=== PATIENT | male | born 1940 | race Caucasian/White ===

== ENCOUNTER 2018-12-13 14:33 | Inpatient (IN) ==
[2018-12-13] MEDS ORDERED: Naloxone 0.4 MG/ML INJ IVP PRN (16:09)
[2018-12-13] MEDS ORDERED: Albuterol 2.5 MG/3 ML NEBULIZER IH PRN (16:14)
[2018-12-13] MEDS ORDERED: Artificial Tears SOLN 15 ML BOTTLE BOTH EYES PRN (16:24)
[2018-12-13 17:05] LABS: ABG Base Excess -7 mEq/L (-2 to 3); ABG HCO3 18 mEq/L (21-27); ABG Oxygen Saturation 99 % (95-98); ABG PCO2 35 mmHg (35-45); ABG PH 7.33 pH Units (7.32-7.45); ABG PO2 151 mmHg (85-104); ABG TCO2 19 mEq/L (20-26); Blood Gas Modality VC; Blood Gas PEEP 5 cm H2O; Blood Gas Respiration Rate 12; Blood Gas VT 500 cc
--- NOTE | 2018-12-13 17:12 | Internal Med History&Physical ---
Date of Encounter: 12/13/18 Time of Encounter: 16:43 Internal Medicine - H&P: HPI Chief complaint: Respiratory arrest Admitted From: Intrahospital Transfer History of present illness: Oleg Schmidt is a 78 M w hx A-Fib on AC, HFrEF 40%, CAD, DM2, HTN, TIA, recent admission for hypoxic respiratory arrest requiring intubation in ICU suspected from benzo overdose with eventual full recovery from which he was only discharged from hospital yesterday. Pt arrived at [place] [facility] flaccid and unresponsive with minimal respiratory effort. Given Narcan without effect. Did have absent reflexes except mild blink to corneal and did not require any sedation during intubation. ABG w pH 7.27, pCO2 42, pO2 114 indicating obtained after placing airway. Serum Cr 3.5. Utox with benzos. Previous hospital stay for similar presentation from 11/27-12/12, complicated by dysphagia placed on thickened diet, RLL PNA placed on augmentin, C diff diarrhea placed on oral vanc. Past medical, surgical, social, and family histories reviewed and updated as below. Past Med Surg Social Fam HX - Past Medical History Medical history: atrial fibrillation, CHF, coronary artery disease, diabetes, hypertension, TIA, other (MRSA, chronic back pain, abdominal aortic aneurysm) Additional medical history: MRSA, back pain, AAA Psychiatric history: anxiety - Past Surgical History Additional surgical history: unknown - Social History Smoking Status: Former smoker Smokeless Tobacco Status: No Alcohol use: none Drug use: none Internal Medicine - H&P: Meds Albuterol Neb [Proventil Neb] 2.5 mg IH Q6HR PRN 11/27/18 [History] Albuterol Sulfate [Proair Hfa] 2 puff IH Q6H PRN 11/27/18 [History] Atorvastatin Calcium [Lipitor] 40 mg PO HS 11/27/18 [History] BuPROPion XL (24 HR) [Wellbutrin Xl] 150 mg PO DAILY 11/27/18 [History] Carboxymethylcellulose Sodium [Refresh Liquigel] 1 applic BOTH EYES QID 11/27/18 [History] Cholecalciferol (D-3) [Vitamin D] 1,000 unit PO DAILY 11/27/18 [History] Clopidogrel [Plavix] 75 mg PO DAILY 11/27/18 [History] Ketotifen Fumarate [Zaditor] 1 drop BOTH EYES BID 11/27/18 [History] Metoprolol Succinate [Toprol Xl] 12.5 mg PO DAILY 11/27/18 [History] Tamsulosin [Flomax] 0.4 mg PO DAILY 11/27/18 [History] Tiotropium [Spiriva] 2 puff IH DAILY 11/27/18 [History] Venlafaxine XR (24 HR) [Effexor Xr] 300 mg PO DAILY 11/27/18 [History] Budesonide/Formoterol 160/4.5 [Symbicort 160/4.5] 2 puff IH BIDR #1 inh 12/10/18 [Rx] Pregabalin [Lyrica] 50 mg PO BID capsule 12/10/18 [Rx] Amoxicillin/Clavulanate [Augmentin] 875 mg PO BIDWM #11 tablet 12/12/18 [Rx] Vancomycin Oral Soln [Firvanq] 125 mg PO QID #33 udc 12/12/18 [Rx] Warfarin [Coumadin] 5 mg PO 1800 #30 tablet 12/12/18 [Rx] Allergy/AdvReac Type Severity Reaction Status Date / Time trazodone Allergy See Verified 12/31/17 13:52 Comments ROS unobtainable: due to endotracheal tube, due to mental status All Systems PM: A 10-system review of systems was performed and is negative for pertinent findings except as documented above in the HPI. - Constitutional Vitals: Resp BP Pulse Ox 18 148/71 100 12/13/18 16:20 12/13/18 16:20 12/13/18 16:20 Exam: General: NAD, intubated and unresponsive Head: Atraumatic, normocephalic. Face symmetric Eyes: sclerae anicteric ENT: Mucous membranes moist. Normal oral mucosa and dentition. Trachea midline. Thoracic: No visible chest wall deformities. Diminished breath sounds b/l, no wheezing or crackles Cardio: Normal S1 and S2, regular rate and rhythm, no JVD Abdomen: Soft, nondistended. Bowel sounds present. Extremities: Warm, well perfused. DP pulses 2+ b/l. No clubbing, cyanosis. No edema Skin: Intact. No rashes, bruises, or ulcers Neuro: Unresponsive, some nonspecific withdrawal to pain, absent dolls eye but does have weak gag and corneal, downgoing babinsky, extremities flaccid - Summary of Assessment and Plan Summary of Assessment and Plan: Oleg Schmidt is a 78 M w hx A-Fib on AC, HFrEF 40%, CAD, DM2, HTN, TIA, recent hypoxic respiratory arrest, who p/w unresponsive and minimal respiratory effort less than 24 hours after hospital discharge, w Utox positive for benzos, concerning for acute hypoxic respiratory arrest. Acute hypoxic respiratory failure: intubated without sedation w Utox +benzos, OARRS reviewed and no benzos, previous hospitalization w benzos on Utox which subsequently cleared on repeat, and now again has benzos. No benzos used for either intubation (etomidate only on first admission, nothing for this one). Strong suspicion for benzo misuse; question is where is pt obtaining them, and is it being given to him maliciously or is he accidentally or intentionally ingesting. Could also be something in the home like CO poisoning. Could have also aspirated given dysphagia and rec for thickened food at discharge. Current hospital presentation very similar to last one, will monitor pt condition and hope improves similarly. - low tidal volume vent management - no sedation - pulm consult for ICU management - consider neuro consult if status does not improve overnight - consider psych consult if pt mental status does improve to assess for suicidal intent - will need speech consult for swallow eval if mental status improves - carboxyhemoglobin level - CT chest - ABG, lactate - continue augmentin for recent PNA LEE: baseline ~1.1, was 4.5 on last admit and improved to 2.3 at discharge, is worse on admit today - Neph consult Recent pneumonia: O2 sats good here on vent, no fever or leukocytosis, no reason to think this is causative at this time. - continue previous augmentin course until 12/17 C diff colitis: formed stools prior to discharge - continue oral vanc until 1 week after augmentin course completed, last dose 12/24 A-Fib: home BB, warfarin DM2: SSI CAD/HLD/TIA: home statin, keep Mg >2 and K >4 HFrEF 40%: not volume overloaded, will monitor HTN: holding home meds given relative hypotension PPx: warfarin, SCDs, famotidine FEN: NPO and TF, no MIVF Lines: PIV Consults: Pulm, Neph, consider Neuro and Psych Code: Full Dispo: patient requires inpatient eval and management at this time. Anticipate 3-4 days. Unclear dispo at this time
[2018-12-13] MEDS: Famotidine 20 MG/2 ML VIAL IVP SCH (17:33)
[2018-12-13] MEDS: Vancomycin Oral Soln 125 MG/2.5 ML UDC PO SCH ×2 (17:33→20:58)
[2018-12-13] MEDS ORDERED: Warfarin perPT PO PRN (17:42)
[2018-12-13] MEDS ORDERED: *HR* Warfarin 7.5 MG TABLET PO ONE (18:00)
[2018-12-13] MEDS ORDERED: *HR* Warfarin 5 MG TABLET PO SCH (18:00)
[2018-12-13 18:10] LABS: Amphetamine Screen,Urine Negative ng/mL (Cutoff=1000); Barbiturate Screen,Urine Negative ng/mL (Cutoff=200); Benzodiazepines Screen,Urine Negative ng/mL (Cutoff=200); Cannabinoid Screen,Urine Negative ng/mL (Cutoff = 50); Cocaine Screen,Urine Negative ng/mL (Cutoff= 300); Opiate Screen,Urine Negative ng/mL (Cutoff=300); Phencyclidine Screen,Urine Negative ng/mL (Cutoff=25)
[2018-12-13 18:18] LABS: Basophils # 0.1 K/mcL (0.0-0.2); Basophils % 0.3 %; Eosinophils # 0.2 K/mcL (0.0-0.6); Eosinophils % 1.2 %; Hematocrit 40.3 % (37.5-50.1); Hemoglobin 12.6 g/dL (12.9-16.9); Immature Granulocytes % 1.4 % (0-4); Lymphocytes % 5.9 %; Mean Corpuscular HGB Conc 31.3 g/dL (31.6-35.5); Mean Corpuscular Hemoglobin 30.1 pg (28.0-33.3); Mean Corpuscular Volume 96.4 fL (83.0-100.0); Mean Platelet Volume 10.9 fL (9.4-12.4); Neutrophils # 14.2 K/mcL (1.6-8.9); Platelet Count 259 K/mcL (140-400); Red Blood Count 4.18 M/mcL (4.19-5.50); Red Cell Distribution Width 14.7 % (11.5-14.5); Segmented Neutrophils % 85.2 %
[2018-12-13 18:21] LABS: INR 1.4; Prothrombin Time 15.5 Seconds (9.4-12.1)
[2018-12-13 18:32] LABS: Acetaminophen < 10 mcg/mL (10-20); Ethanol < 10 mg/dL (Less than 10); Salicylate < 2.5 mg/dL (15.0-30.0)
[2018-12-13 18:35] LABS: Albumin 3.4 g/dL (3.5-5.7); Albumin/Globulin Ratio 1.5 (1.1-2.2); Bilirubin,Direct 0.1 mg/dL (0.0-0.2); Bilirubin,Indirect 0.3 mg/dL (0.0-1.2); Bilirubin,Total 0.4 mg/dL (0.3-1.0); Calcium 8.2 mg/dL (8.6-10.3); Globulin 2.3 g/dL (2.4-3.5); Magnesium 1.5 mg/dL (1.6-2.6); Phosphorous 6.1 mg/dL (2.7-4.5); Potassium 3.8 mEq/L (3.5-5.1); Total Protein 5.7 g/dL (6.4-8.9)
[2018-12-13 18:45] LABS: Troponin I 0.04 ng/mL (< 0.04)
[2018-12-13] MEDS: Artificial Tears SOLN 15 ML BOTTLE BOTH EYES SCH ×2 (20:00→20:49)
[2018-12-13] MEDS: Chlorhexidine Rinse 15 ML MOUTHWASH MM SCH (20:49)
[2018-12-13] MEDS: Budesonide/Formoterol 160/4.5 1 PUFF INH IH SCH (22:16)
[2018-12-14] MEDS: Artificial Tears SOLN 15 ML BOTTLE BOTH EYES SCH ×6 (03:55→19:37)
[2018-12-14 04:44] LABS: ABG Base Excess -6 mEq/L (-2 to 3); ABG HCO3 20 mEq/L (21-27); ABG Oxygen Saturation 97 % (95-98); ABG PCO2 42 mmHg (35-45); ABG PH 7.29 pH Units (7.32-7.45); ABG PO2 98 mmHg (85-104); ABG TCO2 21 mEq/L (20-26); Blood Gas Modality ASSIST CONTROL; Blood Gas PEEP 5 cm H2O; Blood Gas Respiration Rate 12; Blood Gas VT 500 cc
[2018-12-14] MEDS: Famotidine 20 MG/2 ML VIAL IVP SCH (05:35)
[2018-12-14] MEDS: Tiotropium 18 MCG inhalation IH SCH (07:33)
[2018-12-14] MEDS: Budesonide/Formoterol 160/4.5 1 PUFF INH IH SCH ×2 (07:34→21:38)
[2018-12-14] MEDS: Chlorhexidine Rinse 15 ML MOUTHWASH MM SCH ×2 (08:11→19:37)
[2018-12-14] MEDS: Venlafaxine XR (24 HR) 150 MG CAP.ER.24H PO SCH (08:12)
--- NOTE | 2018-12-14 09:37 | Pulmonology Consult Note ---
<Mauro De Luna - Last Filed: 12/14/18 14:06> Date of Encounter: 12/14/18 Time of Encounter: 13:16 Assessment and Plan (1) Acute and chronic respiratory failure with hypoxia Current Visit: Yes Status: Acute Patient currently intubated without sedation with positive urine tox showing benzodiazepines. Concern giving orders report as well as no prescribed medications showing benzodiazepines. Similar presentation with encephalopathy required no sedation, however does not respond to painful stimuli. No known trauma or falls. CT of the head on arrival was negative showing no acute intracranial changes CT of the chest was performed on 12/13/2018 which shows depended lower lobe opacification right greater than the left likely secondary to aspiration. The patient is currently on Augmentin Patient currently intubated, without sedation, not on pressors No lactic acidosis is noted Patient with a mixed metabolic acidosis and respiratory acidosis suspect metabolic acidosis secondary to LEE We will continue with ventilation management Given patient's encephalopathy with minimal response, will consult neurology at this point in time; per neurology recommendation, patient will get a CT scan of the head when he is more stable as well as EEG (2) LEE (acute kidney injury) Current Visit: No Status: Acute Patient with no known history of chronic kidney disease, baseline appears to be around 1.1, following last admission, patient's serum creatinine was elevated up until 4.5, etc. discharge serum creatinine was 2.3 with significant improvement. On admission, patient had significant serum creatinine elevation at 3.27, today 2.98, we will continue monitor (3) Pneumonia Current Visit: No Status: Acute During recent admission, patient was diagnosed with right lower lobe pneumonia, had been discharged on 12/12/2018 on Augmentin Patient does have a leukocytosis which is continuing to down trend today, has remained afebrile Chest x-ray performed yesterday shows no focal consolidation, CT of the chest shows concern for lower lobe opacification concerning for aspiration, we will finish Augmentin treatment which should and on 12/17 Qualifiers: Pneumonia type: due to unspecified organism Laterality: right Lung locati on: unspecified part of lung Qualified Code(s): J18.9 - Pneumonia, unspecified organism (4) C. difficile diarrhea Current Visit: No Status: Acute During recent admission, patient was diagnosed with C. difficile diarrhea Continue vancomycin oral dosing, last dose to be on 12/24 (5) DVT prophylaxis Current Visit: No Status: Acute Scds History of Present Illness Consult date: 12/14/18 Requesting physician: Rashel Hdz Reason for consult: other Chief complaint: respiratory arrest History of present illness: Patient is a 78-year-old male presenting with history of atrial fibrillation on anticoagulation, systolic congestive heart failure, 40%, CAD, diabetes mellitus type 2, hypertension and TIA with known recent admission for hypoxic respiratory respiratory intubation with ICU admission suspected due to benzo overdose with eventual full recovery and discharge from the hospital yesterday. Patient arrived at [place] ED and was found to be flaccid and unresponsive with minimal respiratory effort. Patient was given Narcan via ED without effect. Patient did have absent reflexes except mild blunt to corneal and did not require any sedation during intubation. ABG was performed which showed a pH of 7.27, PCO2 42, PO2 114 following intubation. Serum creatinine is 3.5 with a baseline during a recent admission of 4.46 down to 2.13. During prior to admission on 11/1999 with discharge on with initial presentation of unresponsiveness suspected benzo overdose, complicated by dysphagia and right lower lobe pneumonia, patient was placed on Augmentin. He was also found to have C. difficile diarrhea and was placed on oral vancomycin. Today, patient is currently intubated without sedatives. He would not respond to painful stimuli. Past Med Surg Social Fam HX - Past Medical History Medical history: atrial fibrillation, CHF, coronary artery disease, diabetes, hypertension, TIA, other (MRSA, chronic back pain, abdominal aortic aneurysm) Additional medical history: MRSA, back pain, AAA Psychiatric history: anxiety - Past Surgical History Additional surgical history: unknown - Social History Smoking Status: Former smoker Smokeless Tobacco Status: No Alcohol use: none Drug use: none Medications and Allergies Albuterol Neb [Proventil Neb] 2.5 mg IH Q6HR PRN 11/27/18 [History] Albuterol Sulfate [Proair Hfa] 2 puff IH Q6H PRN 11/27/18 [History] Atorvastatin Calcium [Lipitor] 40 mg PO HS 11/27/18 [History] BuPROPion XL (24 HR) [Wellbutrin Xl] 150 mg PO DAILY 11/27/18 [History] Carboxymethylcellulose Sodium [Refresh Liquigel] 1 applic BOTH EYES QID 11/27/18 [History] Cholecalciferol (D-3) [Vitamin D] 1,000 unit PO DAILY 11/27/18 [History] Clopidogrel [Plavix] 75 mg PO DAILY 11/27/18 [History] Ketotifen Fumarate [Zaditor] 1 drop BOTH EYES BID 11/27/18 [History] Metoprolol Succinate [Toprol Xl] 12.5 mg PO DAILY 11/27/18 [History] Tamsulosin [Flomax] 0.4 mg PO DAILY 11/27/18 [History] Tiotropium [Spiriva] 2 puff IH DAILY 11/27/18 [History] Venlafaxine XR (24 HR) [Effexor Xr] 300 mg PO DAILY 11/27/18 [History] Budesonide/Formoterol 160/4.5 [Symbicort 160/4.5] 2 puff IH BIDR #1 inh 12/10/18 [Rx] Pregabalin [Lyrica] 50 mg PO BID capsule 12/10/18 [Rx] Amoxicillin/Clavulanate [Augmentin] 875 mg PO BIDWM #11 tablet 12/12/18 [Rx] Vancomycin Oral Soln [Firvanq] 125 mg PO QID #33 udc 12/12/18 [Rx] Warfarin [Coumadin] 5 mg PO 1800 #30 tablet 12/12/18 [Rx] Allergy/AdvReac Type Severity Reaction Status Date / Time trazodone Allergy See Verified 12/31/17 13:52 Comments ROS unobtainable: due to endotracheal tube All Systems: The remainder of the systems were reviewed and are negative Physical Examination Vital Signs: Vital Signs, Last 4 Hours Temp Pulse Resp BP Pulse Ox 12/14/18 09:21 16 159/76 98 12/14/18 08:00 72 16 128/73 100 12/14/18 07:43 19 100 12/14/18 07:40 98.0 F 12/14/18 07:00 69 17 130/66 99 12/14/18 06:00 65 19 145/67 100 General appearance: no acute distress Eyes: nonicteric ENT: oropharynx dry Mallampati (class): 2 Neck: supple Effort: mildly labored Auscultation: bilateral: diminished breath sounds Cardiovascular: irregular rhythm Gastrointestinal: normoactive bowel sounds, non-tender, non-distended Integumentary: normal Extremities: no cyanosis, no edema, pink and warm, pulses normal, no ischemia or petechiae unable to assess due to mental status Ventilator Settings Ventilator Settings: Ventilator Settings, Last 8 Hours Ventilator Tidal Volume 500 Setting Ventilator Tidal Volume 500 Setting Ventilator Tidal Volume 500 Setting Ventilator Tidal Volume 500 Setting Ventilator Tidal Volume 500 Setting Ventilator Tidal Volume 500 Setting Ventilator Tidal Volume 500 Setting Ventilator Tidal Volume 500 Setting Ventilator Tidal Volume 500 Setting Ventilator Tidal Volume 500 Setting Ventilator Tidal Volume 500 Setting Ventilator Tidal Volume 500 Setting Ventilator Respiratory Rate 16 Setting Ventilator Respiratory Rate 12 Setting Ventilator Respiratory Rate 12 Setting Ventilator Respiratory Rate 12 Setting Ventilator Respiratory Rate 12 Setting Ventilator Respiratory Rate 12 Setting Ventilator Respiratory Rate 12 Setting Ventilator Respiratory Rate 12 Setting Ventilator Respiratory Rate 12 Setting Ventilator Respiratory Rate 12 Setting Ventilator Respiratory Rate 12 Setting Ventilator Respiratory Rate 12 Setting Actual Respiratory Rate 16 Actual Respiratory Rate 16 Actual Respiratory Rate 16 Actual Respiratory Rate 18 Actual Respiratory Rate 19 Actual Respiratory Rate 14 Actual Respiratory Rate 18 Actual Respiratory Rate 12 Actual Respiratory Rate 12 Actual Respiratory Rate 12 Actual Respiratory Rate 12 Positive End Expiratory 5 Pressure Positive End Expiratory 5 Pressure Positive End Expiratory 5 Pressure Positive End Expiratory 5 Pressure Positive End Expiratory 5 Pressure Positive End Expiratory 5 Pressure Positive End Expiratory 5 Pressure Positive End Expiratory 5 Pressure Positive End Expiratory 5 Pressure Positive End Expiratory 5 Pressure Positive End Expiratory 5 Pressure Positive End Expiratory 5 Pressure Peak Inspiratory Airway 16 Pressure Peak Inspiratory Airway 5 Pressure Peak Inspiratory Airway 7.5 Pressure Peak Inspiratory Airway 5 Pressure Peak Inspiratory Airway 7 Pressure Peak Inspiratory Airway 14 Pressure Peak Inspiratory Airway 8 Pressure Peak Inspiratory Airway 14 Pressure Peak Inspiratory Airway 14 Pressure Peak Inspiratory Airway 14 Pressure Peak Inspiratory Airway 13 Pressure Results - Laboratory Findings CBC and BMP: 12/14/18 10:34 12/14/18 10:34 ABG ABG pH 7.29 pH Units (7.32-7.45) L 12/14/18 04:41 ABG pCO2 42 mmHg (35-45) 12/14/18 04:41 ABG pO2 98 mmHg (85-104) 12/14/18 04:41 ABG O2 Saturation 97 % (95-98) 12/14/18 04:41 PT/INR, D-dimer PT 15.5 Seconds (9.4-12.1) H 12/13/18 18:01 Abnormal lab findings: Abnormal lab results WBC 16.7 K/mcL (4.3-11.1) H 12/13/18 18:01 RBC 4.18 M/mcL (4.19-5.50) L 12/13/18 18:01 Hgb 12.6 g/dL (12.9-16.9) L 12/13/18 18:01 MCHC 31.3 g/dL (31.6-35.5) L 12/13/18 18:01 RDW 14.7 % (11.5-14.5) H 12/13/18 18:01 14.2 K/mcL (1.6-8.9) H 12/13/18 18:01 PT 15.5 Seconds (9.4-12.1) H 12/13/18 18:01 ABG pH 7.29 pH Units (7.32-7.45) L 12/14/18 04:41 ABG pO2 151 mmHg (85-104) H 12/13/18 17:03 ABG HCO3 20 mEq/L (21-27) L 12/14/18 04:41 ABG Total CO2 19 mEq/L (20-26) L 12/13/18 17:03 ABG O2 Saturation 99 % (95-98) H 12/13/18 17:03 ABG Base Excess -6 mEq/L (-2 to 3) L 12/14/18 04:41 Chloride 112 mEq/L (98-107) H 12/13/18 18:01 Carbon Dioxide 19 mEq/L (23-29) L 12/13/18 18:01 BUN 46 mg/dL (8-23) H 12/13/18 18:01 3.27 mg/dL (0.70-1.30) H 12/13/18 18:01 Est GFR ( Amer) 22 (> 60) L 12/13/18 18:01 Est GFR (Non-Af Amer) 19 (> 60) L 12/13/18 18:01 Glucose 132 mg/dL (70-105) H 12/13/18 18:01 POC Glucose 112 mg/dL (70-99) H 12/14/18 00:09 308 (280-300) H 12/13/18 18:01 Calcium 8.2 mg/dL (8.6-10.3) L 12/13/18 18:01 Phosphorus 6.1 mg/dL (2.7-4.5) H 12/13/18 18:01 Magnesium 1.5 mg/dL (1.6-2.6) L 12/13/18 18:01 0.04 ng/mL (< 0.04) H* 12/13/18 18:01 5.7 g/dL (6.4-8.9) L 12/13/18 18:01 3.4 g/dL (3.5-5.7) L 12/13/18 18:01 2.3 g/dL (2.4-3.5) L 12/13/18 18:01 Salicylates < 2.5 mg/dL (15.0-30.0) L 12/13/18 18:01 Acetaminophen < 10 mcg/mL (10-20) L 12/13/18 18:01 - Clinical Findings Intake & Output: Intake & Output 12/13/18 12/14/18 12/14/18 23:59 07:59 15:59 Output Total 525 / 525 1000 / 1000 Balance -525 / -525 -1000 / -1000 Weight 78.6 kg 76.7 kg Consult Discharge Plan - Plan Referrals: [facility]Primary Care Provider[facility] - <Juancarlos Martin W - Last Filed: 12/14/18 14:19> Date of Encounter: 12/14/18 All Systems: The remainder of the systems were reviewed and are negative Physical Examination Vital Signs: Vital Signs, Last 4 Hours Temp Pulse Resp BP Pulse Ox 12/14/18 12:29 97.4 F L 12/14/18 12:00 75 16 123/82 95 12/14/18 11:56 17 100 12/14/18 11:00 66 16 115/65 86 Ventilator Settings Ventilator Settings: Ventilator Settings, Last 8 Hours Ventilator Tidal Volume 500 Setting Ventilator Tidal Volume 500 Setting Ventilator Tidal Volume 500 Setting Ventilator Tidal Volume 500 Setting Ventilator Tidal Volume 500 Setting Ventilator Tidal Volume 500 Setting Ventilator Tidal Volume 500 Setting Ventilator Tidal Volume 500 Setting Ventilator Tidal Volume 500 Setting Ventilator Tidal Volume 500 Setting Ventilator Respiratory Rate 16 Setting Ventilator Respiratory Rate 12 Setting Ventilator Respiratory Rate 16 Setting Ventilator Respiratory Rate 12 Setting Ventilator Respiratory Rate 12 Setting Ventilator Respiratory Rate 16 Setting Ventilator Respiratory Rate 12 Setting Ventilator Respiratory Rate 12 Setting Ventilator Respiratory Rate 12 Setting Ventilator Respiratory Rate 12 Setting Actual Respiratory Rate 14 Actual Respiratory Rate 17 Actual Respiratory Rate 16 Actual Respiratory Rate 16 Actual Respiratory Rate 16 Actual Respiratory Rate 16 Actual Respiratory Rate 16 Actual Respiratory Rate 16 Actual Respiratory Rate 18 Positive End Expiratory 5 Pressure Positive End Expiratory 5 Pressure Positive End Expiratory 5 Pressure Positive End Expiratory 5 Pressure Positive End Expiratory 5 Pressure Positive End Expiratory 5 Pressure Positive End Expiratory 5 Pressure Positive End Expiratory 5 Pressure Positive End Expiratory 5 Pressure Positive End Expiratory 5 Pressure Peak Inspiratory Airway 5 Pressure Peak Inspiratory Airway 17 Pressure Peak Inspiratory Airway 5 Pressure Peak Inspiratory Airway 5 Pressure Peak Inspiratory Airway 16 Pressure Peak Inspiratory Airway 5 Pressure Peak Inspiratory Airway 5 Pressure Peak Inspiratory Airway 7.5 Pressure Peak Inspiratory Airway 5 Pressure Results - Laboratory Findings CBC and BMP: 12/14/18 10:34 12/14/18 10:34 ABG ABG pH 7.31 pH Units (7.32-7.45) L 12/14/18 12:02 ABG pCO2 38 mmHg (35-45) 12/14/18 12:02 ABG pO2 168 mmHg (85-104) H 12/14/18 12:02 ABG O2 Saturation 99 % (95-98) H 12/14/18 12:02 PT/INR, D-dimer PT 17.0 Seconds (9.4-12.1) H 12/14/18 10:34 Abnormal lab findings: Abnormal lab results WBC 12.8 K/mcL (4.3-11.1) H 12/14/18 10:34 RBC 4.18 M/mcL (4.19-5.50) L 12/13/18 18:01 Hgb 12.7 g/dL (12.9-16.9) L 12/14/18 10:34 MCHC 31.2 g/dL (31.6-35.5) L 12/14/18 10:34 RDW 14.9 % (11.5-14.5) H 12/14/18 10:34 10.2 K/mcL (1.6-8.9) H 12/14/18 10:34 PT 17.0 Seconds (9.4-12.1) H 12/14/18 10:34 ABG pH 7.31 pH Units (7.32-7.45) L 12/14/18 12:02 ABG pO2 168 mmHg (85-104) H 12/14/18 12:02 ABG HCO3 19 mEq/L (21-27) L 12/14/18 12:02 ABG Total CO2 19 mEq/L (20-26) L 12/13/18 17:03 ABG O2 Saturation 99 % (95-98) H 12/14/18 12:02 ABG Base Excess -7 mEq/L (-2 to 3) L 12/14/18 12:02 Chloride 112 mEq/L (98-107) H 12/14/18 10:34 Carbon Dioxide 17 mEq/L (23-29) L 12/14/18 10:34 BUN 47 mg/dL (8-23) H 12/14/18 10:34 2.98 mg/dL (0.70-1.30) H 12/14/18 10:34 Est GFR ( Amer) 25 (> 60) L 12/14/18 10:34 Est GFR (Non-Af Amer) 21 (> 60) L 12/14/18 10:34 Glucose 134 mg/dL (70-105) H 12/14/18 10:34 POC Glucose 102 mg/dL (70-99) H 12/14/18 10:44 308 (280-300) H 12/14/18 10:34 Calcium 8.5 mg/dL (8.6-10.3) L 12/14/18 10:34 Phosphorus 6.1 mg/dL (2.7-4.5) H 12/13/18 18:01 Magnesium 1.5 mg/dL (1.6-2.6) L 12/13/18 18:01 0.04 ng/mL (< 0.04) H* 12/13/18 18:01 5.7 g/dL (6.4-8.9) L 12/13/18 18:01 3.4 g/dL (3.5-5.7) L 12/13/18 18:01 2.3 g/dL (2.4-3.5) L 12/13/18 18:01 Salicylates < 2.5 mg/dL (15.0-30.0) L 12/13/18 18:01 Acetaminophen < 10 mcg/mL (10-20) L 12/13/18 18:01 - Clinical Findings Intake & Output: Intake & Output 12/13/18 12/14/18 12/14/18 23:59 07:59 15:59 Output Total 525 / 525 1000 / 1300 300 / 1300 Balance -525 / -525 -1000 / -1300 -300 / -1300 Weight 78.6 kg 76.7 kg - Attending Attestation I examined this patient and my medical decision-making was reviewed with the Resident Physician. I agree with the documented findings, disposition and tr eatment plan as described except to the extent set forth below. We independently had [id number] contact with the patient I spent 36min of Critical Care time with this patient. It involved decision making of high complexity to assess, manipulate, and support vital organ system failure and/or to prevent further life threatening deterioration of the patient's condition. The time involved in the performance of separately reportable procedures was not counted toward critical care time. Patient seen and examined at bedside Labs, radiology, chart personally reviewed. Management was reviewed during multidisciplinary critical care rounds. COUNTER MOLDER: Acute encephalopathy likely secondary to benzodiazepine misuse head CT within normal limits neurology has been consulted Pulm: Hypoxia hypercapnic respiratory failure on vent now with acceptable gas exchange but does still has a relative hypercapnia given underlying metabolic acidosis and so for this reason we will increase his minute ventilation Cards: Blood pressure monitored and stable GI: GI prophylaxis given Nutrition: We will for now Renal: Acute on chronic kidney injury with non-gap acidosis UOP Monitored, Cont to Trend sCr and monitor Electrolytes. ID: Treating for lobar pneumonia likely aspiration de-escalate based upon culture and sensitivities Heme/Onc: DVT prophylaxis given Endo: Glucose Monitored Integ/MSK: Skin Care per routine ICU Nursing Protocol to prevent ulcers. Lines: All lines examined without evidence of infection : Dispo: Continue to monitor in the ICU CODE: Full
[2018-12-14 10:49] LABS: Basophils # 0.1 K/mcL (0.0-0.2); Basophils % 0.6 %; Eosinophils # 0.1 K/mcL (0.0-0.6); Eosinophils % 0.9 %; Hematocrit 40.7 % (37.5-50.1); Hemoglobin 12.7 g/dL (12.9-16.9); Immature Granulocytes % 2.1 % (0-4); Lymphocytes # 1.1 K/mcL (0.6-4.6); Lymphocytes % 8.7 %; Mean Corpuscular HGB Conc 31.2 g/dL (31.6-35.5); Mean Corpuscular Hemoglobin 30.1 pg (28.0-33.3); Mean Corpuscular Volume 96.4 fL (83.0-100.0); Mean Platelet Volume 10.8 fL (9.4-12.4); Neutrophils # 10.2 K/mcL (1.6-8.9); Platelet Count 239 K/mcL (140-400); Red Blood Count 4.22 M/mcL (4.19-5.50); Red Cell Distribution Width 14.9 % (11.5-14.5); Segmented Neutrophils % 79.7 %
[2018-12-14 10:57] LABS: INR 1.5
[2018-12-14 11:07] LABS: Calcium 8.5 mg/dL (8.6-10.3); Potassium 4.2 mEq/L (3.5-5.1)
[2018-12-14 12:07] LABS: ABG Base Excess -7 mEq/L (-2 to 3); ABG HCO3 19 mEq/L (21-27); ABG Oxygen Saturation 99 % (95-98); ABG PCO2 38 mmHg (35-45); ABG PH 7.31 pH Units (7.32-7.45); ABG PO2 168 mmHg (85-104); ABG TCO2 20 mEq/L (20-26); Blood Gas Modality ASSIST CONTROL; Blood Gas PEEP 5 cm H2O; Blood Gas Respiration Rate 16; Blood Gas VT 500 cc
--- NOTE | 2018-12-14 12:48 | Neurology - Consult Note ---
Date of Encounter: 12/14/18 Time of Encounter: 12:46 Assessment and Plan (1) Encephalopathy Current Visit: No Status: Resolved Patient is been intubated and sedated admitted with the mental status changes like the last time along with the positive drug screening for benzos. Limited exam at this time. Suggest getting CT scan of the head when he is more stable Currently no sign of any myoclonic jerking we will get an EEG as well Other treatment is as per primary ICU team History of Present Illness HPI: Mr. Schmidt is a 78 year old male with history of A-Fib on AC, HFrEF 40%, CAD, DM2, HTN, TIA, recent admission for hypoxic respiratory arrest requiring intubation in ICU suspected from benzo overdose with eventual full recovery from which he was only discharged from hospital yesterday. Pt arrived at [place] ED flaccid and unresponsive with minimal respiratory effort. Given Narcan without effect. Utox [ositive with benzos. Patient was discharged yesterday he was admitted earlier when he was intubated and noted to have significant anoxic hypoxic encephalopathy with very limited brainstem reflexes and has abnormal EEG with the pattern of burst suppression/medication effect, but gradually and slowly he recovered to the point that he was able to be extubated in a was able to have conversation and wa s moving all his 4 extremities without any significant deficit Past Med Surg Social Fam HX - Past Medical History Medical history: atrial fibrillation, CHF, coronary artery disease, diabetes, hypertension, TIA, other (MRSA, chronic back pain, abdominal aortic aneurysm) Additional medical history: MRSA, back pain, AAA Psychiatric history: anxiety - Past Surgical History Additional surgical history: unknown - Social History Smoking Status: Former smoker Smokeless Tobacco Status: No Alcohol use: none Drug use: none Medications and Allergies Albuterol Neb [Proventil Neb] 2.5 mg IH Q6HR PRN 11/27/18 [History] Albuterol Sulfate [Proair Hfa] 2 puff IH Q6H PRN 11/27/18 [History] Atorvastatin Calcium [Lipitor] 40 mg PO HS 11/27/18 [History] BuPROPion XL (24 HR) [Wellbutrin Xl] 150 mg PO DAILY 11/27/18 [History] Carboxymethylcellulose Sodium [Refresh Liquigel] 1 applic BOTH EYES QID 11/27/18 [History] Cholecalciferol (D-3) [Vitamin D] 1,000 unit PO DAILY 11/27/18 [History] Clopidogrel [Plavix] 75 mg PO DAILY 11/27/18 [History] Ketotifen Fumarate [Zaditor] 1 drop BOTH EYES BID 11/27/18 [History] Metoprolol Succinate [Toprol Xl] 12.5 mg PO DAILY 11/27/18 [History] Tamsulosin [Flomax] 0.4 mg PO DAILY 11/27/18 [History] Tiotropium [Spiriva] 2 puff IH DAILY 11/27/18 [History] Venlafaxine XR (24 HR) [Effexor Xr] 300 mg PO DAILY 11/27/18 [History] Budesonide/Formoterol 160/4.5 [Symbicort 160/4.5] 2 puff IH BIDR #1 inh 12/10/18 [Rx] Pregabalin [Lyrica] 50 mg PO BID capsule 12/10/18 [Rx] Amoxicillin/Clavulanate [Augmentin] 875 mg PO BIDWM #11 tablet 12/12/18 [Rx] Vancomycin Oral Soln [Firvanq] 125 mg PO QID #33 udc 12/12/18 [Rx] Warfarin [Coumadin] 5 mg PO 1800 #30 tablet 12/12/18 [Rx] Allergy/AdvReac Type Severity Reaction Status Date / Time trazodone Allergy See Verified 12/31/17 13:52 Comments ROS unobtainable: due to endotracheal tube, due to mental status All Systems: The remainder of the systems were reviewed and are negative Physical Examination - Vital Signs Vital Signs: Initial Vital Signs Temp Pulse Resp BP Pulse Ox 99.2 F 73 20 148/71 99 12/13/18 16:05 12/13/18 16:05 12/13/18 16:05 12/13/18 16:05 12/13/18 16:05 - Exam Exam: GENERAL: Comfortable in no acute distress intubated and sedated HEENT: Normal LUNGS: CTA HEART: RRR, S1 S2 Audible, no murmur EXTREMITIES: No Pedal edema. DETAILED NEUROLOGICAL EXAMINATION: MENTAL STATUS: Unable to obtain is currently intubated Cranial Nerve Examination: Unable to assess Motor examination: Unable to assess as sedated Deep tendon reflexes. Symmetrical bilateral, No evidence of Babinski. No sign of meningeal irritation Gait Examination: Deferred Results - Laboratory Findings CBC and BMP: 12/14/18 10:34 12/14/18 10:34 Abnormal lab findings: Abnormal lab results WBC 12.8 K/mcL (4.3-11.1) H 12/14/18 10:34 RBC 4.18 M/mcL (4.19-5.50) L 12/13/18 18:01 Hgb 12.7 g/dL (12.9-16.9) L 12/14/18 10:34 MCHC 31.2 g/dL (31.6-35.5) L 12/14/18 10:34 RDW 14.9 % (11.5-14.5) H 12/14/18 10:34 10.2 K/mcL (1.6-8.9) H 12/14/18 10:34 PT 17.0 Seconds (9.4-12.1) H 12/14/18 10:34 ABG pH 7.31 pH Units (7.32-7.45) L 12/14/18 12:02 ABG pO2 168 mmHg (85-104) H 12/14/18 12:02 ABG HCO3 19 mEq/L (21-27) L 12/14/18 12:02 ABG Total CO2 19 mEq/L (20-26) L 12/13/18 17:03 ABG O2 Saturation 99 % (95-98) H 12/14/18 12:02 ABG Base Excess -7 mEq/L (-2 to 3) L 12/14/18 12:02 Chloride 112 mEq/L (98-107) H 12/14/18 10:34 Carbon Dioxide 17 mEq/L (23-29) L 12/14/18 10:34 BUN 47 mg/dL (8-23) H 12/14/18 10:34 2.98 mg/dL (0.70-1.30) H 12/14/18 10:34 Est GFR ( Amer) 25 (> 60) L 12/14/18 10:34 Est GFR (Non-Af Amer) 21 (> 60) L 12/14/18 10:34 Glucose 134 mg/dL (70-105) H 12/14/18 10:34 POC Glucose 102 mg/dL (70-99) H 12/14/18 10:44 308 (280-300) H 12/14/18 10:34 Calcium 8.5 mg/dL (8.6-10.3) L 12/14/18 10:34 Phosphorus 6.1 mg/dL (2.7-4.5) H 12/13/18 18:01 Magnesium 1.5 mg/dL (1.6-2.6) L 12/13/18 18:01 0.04 ng/mL (< 0.04) H* 12/13/18 18:01 5.7 g/dL (6.4-8.9) L 12/13/18 18:01 3.4 g/dL (3.5-5.7) L 12/13/18 18:01 2.3 g/dL (2.4-3.5) L 12/13/18 18:01 Salicylates < 2.5 mg/dL (15.0-30.0) L 12/13/18 18:01 Acetaminophen < 10 mcg/mL (10-20) L 12/13/18 18:01 Consult Discharge Plan - Plan [facility]: [facility]Primary Care Provider[facility] -
[2018-12-14] MEDS: Vancomycin Oral Soln 125 MG/2.5 ML UDC PO SCH ×4 (13:01→19:37)
[2018-12-14] MEDS ORDERED: D5% in 0.9% NACL 1,000 ML IVC SCH (14:15)
[2018-12-14] MEDS: D5% in Lactated Ringers 1,000 ML IVC SCH (15:14)
[2018-12-14] MEDS ORDERED: *HR* Warfarin 7.5 MG TABLET PO ONE (18:00)
[2018-12-14] MEDS: FentaNYL (PF) 1,000 MCG in 0.9 % Sodium Chloride 80 ML IVC SCH (21:59)
[2018-12-15] MEDS: Dexmedetomidine HCl 400 MCG/100 ML MLS IVC SCH
[2018-12-15] MEDS: D5% in Lactated Ringers 1,000 ML IVC SCH (04:34)
[2018-12-15] MEDS: Artificial Tears SOLN 15 ML BOTTLE BOTH EYES SCH ×7 (04:48→23:44)
[2018-12-15] MEDS: FentaNYL (PF) 1,000 MCG in 0.9 % Sodium Chloride 80 ML IVC SCH (04:48)
[2018-12-15 05:04] LABS: Basophils % 0.3 %; Eosinophils # 0.1 K/mcL (0.0-0.6); Eosinophils % 0.5 %; Hematocrit 35.1 % (37.5-50.1); Hemoglobin 11.1 g/dL (12.9-16.9); Immature Granulocytes % 1.6 % (0-4); Lymphocytes # 0.7 K/mcL (0.6-4.6); Mean Corpuscular HGB Conc 31.6 g/dL (31.6-35.5); Mean Corpuscular Volume 94.9 fL (83.0-100.0); Monocytes # 0.7 K/mcL (0.0-1.3); Monocytes % 6.7 %; Neutrophils # 8.5 K/mcL (1.6-8.9); Platelet Count 234 K/mcL (140-400); Red Cell Distribution Width 14.7 % (11.5-14.5); Segmented Neutrophils % 83.9 %
[2018-12-15 05:14] LABS: ABG Base Excess -4 mEq/L (-2 to 3); ABG HCO3 21 mEq/L (21-27); ABG Oxygen Saturation 98 % (95-98); ABG PCO2 36 mmHg (35-45); ABG PH 7.37 pH Units (7.32-7.45); ABG PO2 113 mmHg (85-104); ABG TCO2 22 mEq/L (20-26); Blood Gas Modality AF; Blood Gas PEEP 5 cm H2O; Blood Gas Respiration Rate 16; Blood Gas VT 500 cc
[2018-12-15 05:17] LABS: INR 2.7; Prothrombin Time 30.1 Seconds (9.4-12.1)
[2018-12-15 05:24] LABS: Calcium 8.1 mg/dL (8.6-10.3); Potassium 4.4 mEq/L (3.5-5.1)
[2018-12-15] MEDS ORDERED: Dextrose Gel 15 GM/37.5 ML TUBE PO PRN ×2 (07:35)
[2018-12-15] MEDS ORDERED: D5% in Water 1,000 ML IVC PRN (07:35)
[2018-12-15] MEDS ORDERED: *HR* Dextrose 50 % in Water (Syg) 50 ML SYRINGE IVP PRN (07:35)
[2018-12-15] MEDS: Tiotropium 18 MCG inhalation IH SCH (07:45)
[2018-12-15] MEDS: Budesonide/Formoterol 160/4.5 1 PUFF INH IH SCH ×2 (07:45→20:00)
[2018-12-15] MEDS: Vancomycin Oral Soln 125 MG/2.5 ML UDC PO SCH ×4 (08:45→20:47)
[2018-12-15] MEDS: Chlorhexidine Rinse 15 ML MOUTHWASH MM SCH ×2 (08:45→20:46)
[2018-12-15] MEDS: Famotidine 20 MG/2 ML VIAL IVP SCH (08:45)
[2018-12-15] MEDS: Venlafaxine XR (24 HR) 150 MG CAP.ER.24H PO SCH (08:46)
--- NOTE | 2018-12-15 09:30 | Neurology Progress Note ---
<Xander Leon - Last Filed: 12/15/18 09:26> Date of Encounter: 12/15/18 Time of Encounter: 09:26 Assessment and Plan (1) Encephalopathy Current Visit: No Status: Resolved Patient is encephalopathic; DDX-medication induced or metabolic or some combination thereof His neurological exam is limited as the patient remains intubated and on se dation. He was admitted with altered mental state in the setting of positive UDS Suggest CT scan of head when patient stable EEG pending Continue medical and supportive care Subjective Principal diagnosis: Encephalopathy Interval history: Patient seen in follow-up for encephalopathy. He was discharged 12/13 from [facility] where he was earlier admitted and intubated due to collapse and suspected anoxic brain. He reports any flaccid and unresponsive state with minimal respiratory effort. Urine tox positive for benzodiazepines. [facility] report reveals that the patient is not Rx BZD's. This morning he remains intubated and on sedation in the intensive care unit. No family present to discuss plan of care. He remains encephalopathic and does not follow commands at this time. Objective - Constitutional Vitals: Temp Pulse Resp BP Pulse Ox 97.4 F L 64 16 149/78 98 12/15/18 07:57 12/15/18 08:00 12/15/18 08:00 12/15/18 08:00 12/15/18 08:00 Exam: Examination: General Examination: *CONSTITUTIONAL: Sedated, no acute distress *GENERAL APPEARANCE OF PATIENT ill-appearing elderly male. *EYES: pupils equal, round, reactive to light and accommodation, conjunctiva clear without masses or ulcerations, fundi normal. *CARDIOVASCULAR no peripheral edema, distal temperature normal, dorsalis pedis pulses normal. See vital signs Musculoskeletal: *GAIT AND STATION intubated and sedated; not assessed *ASSESSMENT OF MUSCLE STRENGTH IN THE UPPER AND LOWER EXTREMITIES moves bilateral upper and lower extremities to noxious stimuli *MUSCLE TONE IN THE UPPER AND LOWER EXTREMITIES normal with appropriate bulk and tone. Neurological: *MENTAL intubated on sedation *CN II optic fundi were normal, no papilledema noted. *CN III,IV, PERRLA 3mm with minimal sluggish constriction both direct and consensual. Unable to assess extraocular eye movements, Doll's eyes intact *CN V shows normal sensation and jaw opens symmetrically. *CN VII shows normal facial movement symmetrically, upper and lower bilaterally.grimmces to pain *CN XI normal strength in the sternocleidomastoid muscles; moves head left and right to noxious stimulus *CN XII intact gag *SENSORY EXAMINATION moves extremities x4 to painful stimulus *REFLEXES: Areflexic. Triple flexion reflex present *CEREBELLAR TESTING normal finger to nose, heel/knee/baires *PAIN LEVEL unable to assess Results - Laboratory Findings CBC and BMP: 12/15/18 04:46 12/15/18 04:46 Abnormal lab findings: Abnormal lab results WBC 12.8 K/mcL (4.3-11.1) H 12/14/18 10:34 RBC 3.70 M/mcL (4.19-5.50) L 12/15/18 04:46 Hgb 11.1 g/dL (12.9-16.9) L D 12/15/18 04:46 Hct 35.1 % (37.5-50.1) L 12/15/18 04:46 MCHC 31.2 g/dL (31.6-35.5) L 12/14/18 10:34 RDW 14.7 % (11.5-14.5) H 12/15/18 04:46 10.2 K/mcL (1.6-8.9) H 12/14/18 10:34 PT 30.1 Seconds (9.4-12.1) H D 12/15/18 04:46 ABG pH 7.31 pH Units (7.32-7.45) L 12/14/18 12:02 ABG pO2 113 mmHg (85-104) H 12/15/18 05:11 ABG HCO3 19 mEq/L (21-27) L 12/14/18 12:02 ABG Total CO2 19 mEq/L (20-26) L 12/13/18 17:03 ABG O2 Saturation 99 % (95-98) H 12/14/18 12:02 ABG Base Excess -4 mEq/L (-2 to 3) L 12/15/18 05:11 Chloride 114 mEq/L (98-107) H 12/15/18 04:46 Carbon Dioxide 21 mEq/L (23-29) L 12/15/18 04:46 BUN 43 mg/dL (8-23) H 12/15/18 04:46 2.45 mg/dL (0.70-1.30) H 12/15/18 04:46 Est GFR ( Amer) 31 (> 60) L 12/15/18 04:46 Est GFR (Non-Af Amer) 26 (> 60) L 12/15/18 04:46 Glucose 274 mg/dL (70-105) H 12/15/18 04:46 POC Glucose 232 mg/dL (70-99) H 12/15/18 05:22 319 (280-300) H 12/15/18 04:46 Calcium 8.1 mg/dL (8.6-10.3) L 12/15/18 04:46 Phosphorus 6.1 mg/dL (2.7-4.5) H 12/13/18 18:01 Magnesium 1.5 mg/dL (1.6-2.6) L 12/13/18 18:01 0.04 ng/mL (< 0.04) H* 12/13/18 18:01 5.7 g/dL (6.4-8.9) L 12/13/18 18:01 3.4 g/dL (3.5-5.7) L 12/13/18 18:01 2.3 g/dL (2.4-3.5) L 12/13/18 18:01 Salicylates < 2.5 mg/dL (15.0-30.0) L 12/13/18 18:01 Acetaminophen < 10 mcg/mL (10-20) L 12/13/18 18:01 Consult Discharge Plan - Plan [facility]errals: [facility] [Primary Care Provider[facility] - <Benja Adhikari I - Last Filed: 12/15/18 16:41> Date of Encounter: 12/15/18 Assessment and Plan (1) Encephalopathy Current Visit: No Status: Resolved I have personally performed a face to face diagnostic evaluation, including HPI, EXAM, which is included in the Assesment and plan, which was discussed with Xander Leon CNP, I agree with the above outlined documentation. Benja Adhikari MD. NeurologyI Objective - Constitutional Vitals: Temp Pulse Resp BP Pulse Ox 98.6 F 79 12 172/88 97 12/15/18 12:00 12/15/18 16:00 12/15/18 15:00 12/15/18 15:00 12/15/18 15:00 Results - Laboratory Findings CBC and BMP: 12/15/18 04:46 12/15/18 04:46 Abnormal lab findings: Abnormal lab results WBC 12.8 K/mcL (4.3-11.1) H 12/14/18 10:34 RBC 3.70 M/mcL (4.19-5.50) L 12/15/18 04:46 Hgb 11.1 g/dL (12.9-16.9) L D 12/15/18 04:46 Hct 35.1 % (37.5-50.1) L 12/15/18 04:46 MCHC 31.2 g/dL (31.6-35.5) L 12/14/18 10:34 RDW 14.7 % (11.5-14.5) H 12/15/18 04:46 10.2 K/mcL (1.6-8.9) H 12/14/18 10:34 PT 30.1 Seconds (9.4-12.1) H D 12/15/18 04:46 ABG pH 7.31 pH Units (7.32-7.45) L 12/14/18 12:02 ABG pO2 113 mmHg (85-104) H 12/15/18 05:11 ABG HCO3 19 mEq/L (21-27) L 12/14/18 12:02 ABG Total CO2 19 mEq/L (20-26) L 12/13/18 17:03 ABG O2 Saturation 99 % (95-98) H 12/14/18 12:02 ABG Base Excess -4 mEq/L (-2 to 3) L 12/15/18 05:11 Chloride 114 mEq/L (98-107) H 12/15/18 04:46 Carbon Dioxide 21 mEq/L (23-29) L 12/15/18 04:46 BUN 43 mg/dL (8-23) H 12/15/18 04:46 2.45 mg/dL (0.70-1.30) H 12/15/18 04:46 Est GFR ( Amer) 31 (> 60) L 12/15/18 04:46 Est GFR (Non-Af Amer) 26 (> 60) L 12/15/18 04:46 Glucose 274 mg/dL (70-105) H 12/15/18 04:46 POC Glucose 246 mg/dL (70-99) H 12/15/18 11:09 319 (280-300) H 12/15/18 04:46 Calcium 8.1 mg/dL (8.6-10.3) L 12/15/18 04:46 Phosphorus 6.1 mg/dL (2.7-4.5) H 12/13/18 18:01 Magnesium 1.5 mg/dL (1.6-2.6) L 12/13/18 18:01 0.04 ng/mL (< 0.04) H* 12/13/18 18:01 5.7 g/dL (6.4-8.9) L 12/13/18 18:01 3.4 g/dL (3.5-5.7) L 12/13/18 18:01 2.3 g/dL (2.4-3.5) L 12/13/18 18:01 Salicylates < 2.5 mg/dL (15.0-30.0) L 12/13/18 18:01 Acetaminophen < 10 mcg/mL (10-20) L 12/13/18 18:01
--- NOTE | 2018-12-15 10:05 | Electrocardiograph Report ---
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
[2018-12-15] MEDS: Insulin LISPRO 300 UNITS/3 ML VIAL SQ SCH ×2 (11:10→18:06)
--- NOTE | 2018-12-15 11:23 | Pulmonology Progress Note ---
<Samantha Smitha - Last Filed: 12/15/18 19:00> Date of Encounter: 12/15/18 Time of Encounter: 08:00 Assessment and Plan (1) Acute respiratory failure with hypoxia Current Visit: Yes Status: Acute Was presented to the ED after he was found flaccid and unresponsive with [place] decreased respiratory effort, unsure of the etiology He received Narcan in the ED without any effect Subsequently he was intubated without any additional sedated was ABG in the ED showed pH of 7.27 with PCO2 of 42 following intubation Respiratory failure was likely secondary to acute intoxication UDS was positive for benzodiazepine on last admission current admission did not show any positive findings on toxicology Was extubated today tolerating nasal cannula Continue Symbicort and nebulizer (2) Acute kidney failure Current Visit: No Status: Acute Creatinine on presentation was 3.27 this morning currently improved to 2.45 Had output of 1500 today Renal function does appear chronically poor given GFR of baseline 15 on previous admission 2 weeks ago Continue to monitor urinary output Avoid nephrotoxins and renally dose medications Qualifiers: Acute renal failure type: unspecified Qualified Code(s): N17.9 - Acute kidney failure, unspecified (3) C. difficile colitis Current Visit: Yes Status: Acute Recent admission was diagnosed with C. difficile and was started on oral vancomycin Last dose of oral vancomycin should be on 12/24/18 Continue oral vancomycin (4) CAD (coronary artery disease) Current Visit: Yes Status: Acute Continue home Plavix Qualifiers: Coronary Disease-Associated Artery/Lesion type: unspecified vessel or lesion type [place] vs. transplanted heart: unspecified whether [place] or transplanted heart Associated angina: angina presence unspecified Qualified Code(s): I25.10 - Atherosclerotic heart disease of [place] coronary artery without angina pectoris (5) DVT prophylaxis Current Visit: No Status: Acute Continue SCDs Subjective Principal diagnosis: Encephalopathy Interval history: Mr. Schmidt was intubated and resting in bed comfortably. His vitals were reviewed and they remained within normal limits he was afebrile and normotensive. He was later extubated and has been tolerating 4 L of nasal cannula with 97% oxygen saturation. Objective PUL Vital signs: Last Vital Signs Temp 97.4 F L 12/15/18 07:57 Pulse 68 12/15/18 11:00 Resp 14 12/15/18 11:00 BP 141/69 12/15/18 11:00 Pulse Ox 99 12/15/18 11:00 General appearance: no acute distress, alert Eyes: nonicteric ENT: oropharynx moist Effort: normal Auscultation: bilateral: clear Cardiovascular: irregular rhythm Gastrointestinal: normoactive bowel sounds, soft, non-tender, non-distended Extremities: no cyanosis, no edema Musculoskeletal: no deformities unable to assess due to mental status Ventilator Settings Ventilator Settings: Ventilator Settings, Last 8 Hours Ventilator Tidal Volume 500 Setting Ventilator Tidal Volume 500 Setting Ventilator Tidal Volume 500 Setting Ventilator Tidal Volume 500 Setting Ventilator Tidal Volume 500 Setting Ventilator Tidal Volume 500 Setting Ventilator Tidal Volume 500 Setting Ventilator Tidal Volume 500 Setting Ventilator Tidal Volume 500 Setting Ventilator Tidal Volume 500 Setting Ventilator Tidal Volume 500 Setting Ventilator Tidal Volume 500 Setting Ventilator Tidal Volume 500 Setting Ventilator Respiratory Rate 16 Setting Ventilator Respiratory Rate 16 Setting Ventilator Respiratory Rate 16 Setting Ventilator Respiratory Rate 16 Setting Ventilator Respiratory Rate 16 Setting Ventilator Respiratory Rate 16 Setting Ventilator Respiratory Rate 16 Setting Ventilator Respiratory Rate 16 Setting Ventilator Respiratory Rate 16 Setting Ventilator Respiratory Rate 16 Setting Ventilator Respiratory Rate 16 Setting Actual Respiratory Rate 14 Actual Respiratory Rate 14 Actual Respiratory Rate 18 Actual Respiratory Rate 15 Actual Respiratory Rate 16 Actual Respiratory Rate 22 Actual Respiratory Rate 16 Actual Respiratory Rate 16 Actual Respiratory Rate 16 Actual Respiratory Rate 16 Actual Respiratory Rate 16 Actual Respiratory Rate 19 Positive End Expiratory 5 Pressure Positive End Expiratory 5 Pressure Positive End Expiratory 5 Pressure Positive End Expiratory 5 Pressure Positive End Expiratory 5 Pressure Positive End Expiratory 5 Pressure Positive End Expiratory 5 Pressure Positive End Expiratory 5 Pressure Positive End Expiratory 5 Pressure Positive End Expiratory 5 Pressure Positive End Expiratory 5 Pressure Positive End Expiratory 5 Pressure Positive End Expiratory 5 Pressure Peak Inspiratory Airway 17 Pressure Peak Inspiratory Airway 24 Pressure Peak Inspiratory Airway 9.5 Pressure Peak Inspiratory Airway 19 Pressure Peak Inspiratory Airway 16 Pressure Peak Inspiratory Airway 35 Pressure Results - Laboratory Findings CBC and BMP: 12/15/18 04:46 12/15/18 04:46 ABG ABG pH 7.37 pH Units (7.32-7.45) 12/15/18 05:11 ABG pCO2 36 mmHg (35-45) 12/15/18 05:11 ABG pO2 113 mmHg (85-104) H 12/15/18 05:11 ABG O2 Saturation 98 % (95-98) 12/15/18 05:11 PT/INR, D-dimer PT 30.1 Seconds (9.4-12.1) H D 12/15/18 04:46 Abnormal lab findings: Abnormal lab results WBC 12.8 K/mcL (4.3-11.1) H 12/14/18 10:34 RBC 3.70 M/mcL (4.19-5.50) L 12/15/18 04:46 Hgb 11.1 g/dL (12.9-16.9) L D 12/15/18 04:46 Hct 35.1 % (37.5-50.1) L 12/15/18 04:46 MCHC 31.2 g/dL (31.6-35.5) L 12/14/18 10:34 RDW 14.7 % (11.5-14.5) H 12/15/18 04:46 10.2 K/mcL (1.6-8.9) H 12/14/18 10:34 PT 30.1 Seconds (9.4-12.1) H D 12/15/18 04:46 ABG pH 7.31 pH Units (7.32-7.45) L 12/14/18 12:02 ABG pO2 113 mmHg (85-104) H 12/15/18 05:11 ABG HCO3 19 mEq/L (21-27) L 12/14/18 12:02 ABG Total CO2 19 mEq/L (20-26) L 12/13/18 17:03 ABG O2 Saturation 99 % (95-98) H 12/14/18 12:02 ABG Base Excess -4 mEq/L (-2 to 3) L 12/15/18 05:11 Chloride 114 mEq/L (98-107) H 12/15/18 04:46 Carbon Dioxide 21 mEq/L (23-29) L 12/15/18 04:46 BUN 43 mg/dL (8-23) H 12/15/18 04:46 2.45 mg/dL (0.70-1.30) H 12/15/18 04:46 Est GFR ( Amer) 31 (> 60) L 12/15/18 04:46 Est GFR (Non-Af Amer) 26 (> 60) L 12/15/18 04:46 Glucose 274 mg/dL (70-105) H 12/15/18 04:46 POC Glucose 246 mg/dL (70-99) H 12/15/18 11:09 319 (280-300) H 12/15/18 04:46 Calcium 8.1 mg/dL (8.6-10.3) L 12/15/18 04:46 Phosphorus 6.1 mg/dL (2.7-4.5) H 12/13/18 18:01 Magnesium 1.5 mg/dL (1.6-2.6) L 12/13/18 18:01 0.04 ng/mL (< 0.04) H* 12/13/18 18:01 5.7 g/dL (6.4-8.9) L 12/13/18 18:01 3.4 g/dL (3.5-5.7) L 12/13/18 18:01 2.3 g/dL (2.4-3.5) L 12/13/18 18:01 Salicylates < 2.5 mg/dL (15.0-30.0) L 12/13/18 18:01 Acetaminophen < 10 mcg/mL (10-20) L 12/13/18 18:01 - Clinical Findings Intake & Output: Intake & Output 12/14/18 12/15/18 12/15/18 23:59 07:59 15:59 Intake Total 1190 / 1640 450 / 1640 Output Total 600 / 1900 775 / 1075 300 / 1075 Balance -600 / -1900 415 / 565 150 / 565 Weight 75.1 kg Consult Discharge Plan - Plan [facility]errals: [facility] [Primary Care Provider[facility] - <Biju Chou - Last Filed: 12/15/18 21:43> Date of Encounter: 12/15/18 Objective PUL Vital signs: Last Vital Signs Temp 98.1 F 12/15/18 20:22 Pulse 73 12/15/18 20:53 Resp 10 12/15/18 20:53 BP 183/105 12/15/18 20:53 Pulse Ox 100 12/15/18 20:53 Results - Laboratory Findings CBC and BMP: 12/15/18 04:46 12/15/18 04:46 ABG ABG pH 7.37 pH Units (7.32-7.45) 12/15/18 05:11 ABG pCO2 36 mmHg (35-45) 12/15/18 05:11 ABG pO2 113 mmHg (85-104) H 12/15/18 05:11 ABG O2 Saturation 98 % (95-98) 12/15/18 05:11 PT/INR, D-dimer PT 30.1 Seconds (9.4-12.1) H D 12/15/18 04:46 Abnormal lab findings: Abnormal lab results WBC 12.8 K/mcL (4.3-11.1) H 12/14/18 10:34 RBC 3.70 M/mcL (4.19-5.50) L 12/15/18 04:46 Hgb 11.1 g/dL (12.9-16.9) L D 12/15/18 04:46 Hct 35.1 % (37.5-50.1) L 12/15/18 04:46 MCHC 31.2 g/dL (31.6-35.5) L 12/14/18 10:34 RDW 14.7 % (11.5-14.5) H 12/15/18 04:46 10.2 K/mcL (1.6-8.9) H 12/14/18 10:34 PT 30.1 Seconds (9.4-12.1) H D 12/15/18 04:46 ABG pH 7.31 pH Units (7.32-7.45) L 12/14/18 12:02 ABG pO2 113 mmHg (85-104) H 12/15/18 05:11 ABG HCO3 19 mEq/L (21-27) L 12/14/18 12:02 ABG Total CO2 19 mEq/L (20-26) L 12/13/18 17:03 ABG O2 Saturation 99 % (95-98) H 12/14/18 12:02 ABG Base Excess -4 mEq/L (-2 to 3) L 12/15/18 05:11 Chloride 114 mEq/L (98-107) H 12/15/18 04:46 Carbon Dioxide 21 mEq/L (23-29) L 12/15/18 04:46 BUN 43 mg/dL (8-23) H 12/15/18 04:46 2.45 mg/dL (0.70-1.30) H 12/15/18 04:46 Est GFR ( Amer) 31 (> 60) L 12/15/18 04:46 Est GFR (Non-Af Amer) 26 (> 60) L 12/15/18 04:46 Glucose 274 mg/dL (70-105) H 12/15/18 04:46 POC Glucose 119 mg/dL (70-99) H 12/15/18 17:53 319 (280-300) H 12/15/18 04:46 Calcium 8.1 mg/dL (8.6-10.3) L 12/15/18 04:46 Phosphorus 6.1 mg/dL (2.7-4.5) H 12/13/18 18:01 Magnesium 1.5 mg/dL (1.6-2.6) L 12/13/18 18:01 0.04 ng/mL (< 0.04) H* 12/13/18 18:01 5.7 g/dL (6.4-8.9) L 12/13/18 18:01 3.4 g/dL (3.5-5.7) L 12/13/18 18:01 2.3 g/dL (2.4-3.5) L 12/13/18 18:01 Salicylates < 2.5 mg/dL (15.0-30.0) L 12/13/18 18:01 Acetaminophen < 10 mcg/mL (10-20) L 12/13/18 18:01 - Clinical Findings Intake & Output: Intake & Output 12/15/18 12/15/18 12/15/18 07:59 15:59 23:59 Intake Total 1190 / 1640 450 / 1640 0 / 1640 Output Total 775 / 2050 300 / 2050 975 / 2050 Balance 415 / -410 150 / -410 -975 / -410 Weight 75.1 kg - Attending Attestation I saw and evaluated this patient and my medical decision-making was reviewed with the Resident Physician. I agree with the documented findings, disposition and treatment plan as described except to the extent set forth below. We independently had [id number] contact with the patient I spent 45 minutes of Critical Care time with this patient. It involved decision making of high complexity to assess, manipulate, and support vital organ system failure and/or to prevent further life threatening deterioration of the patient's condition. The time involved in the performance of separately reportable procedures was not counted toward critical care time. Patient seen and examined at bedside Labs, radiology, chart personally reviewed. Management was reviewed during multidisciplinary critical care rounds. MANAGER MEMBERSHIP: Vision presented with encephalopathy most likely toxic/metabolic encephalopathy patient urine tox was positive for benzodiazepine this process a second had recurrent benzodiazepine overdose the leading to intubation mechanical ventilation. Patient is slowly waking up following commands Pulm: Patient has acceptable oxygenation and ventilation patient passed the spontaneous breathing trial patient has good gag reflex will try to extubate to nasal cannula Cards: And did not have any evidence of a non-ST elevation [place] to control afterload and preload to maintain sinus rhythm. FEN-GI: Once extubated to keep him nothing by mouth will assess with swallowing eval and speech therapy. Renal: Acute on chronic kidney injury adequate urine output we will trend serum creatinine. ID: To cover the broad-spectrum antibiotics will de-escalate Heme/Onc: Labs reviewed Endo: Glucose Monitored Integ/MSK: Skin Care per routine ICU Nursing Protocol to prevent ulcers. Lines: All lines examined without evidence of infection : Dispo: patient is critically ill high chance of reintubation CODE: full code
[2018-12-15] MEDS ORDERED: *HR* Metoprolol 5 MG/5 ML VIAL IVP PRN (20:20)
[2018-12-15] MEDS ORDERED: Haloperidol Lactate 5 MG/ML VIAL IVP ONE (22:53)
[2018-12-15] MEDS: *HR* LORazepam 2 MG/ML VIAL IVP PRN (23:24)
[2018-12-16] MEDS: Insulin LISPRO 300 UNITS/3 ML VIAL SQ SCH ×5 (00:29→23:14)
[2018-12-16] MEDS: Dexmedetomidine HCl 400 MCG/100 ML MLS IVC SCH ×3 (00:38→23:47)
[2018-12-16] MEDS: *HR* LORazepam 2 MG/ML VIAL IVP PRN ×2 (02:36→20:07)
[2018-12-16 04:33] LABS: Basophils % 0.3 %; Eosinophils # 0.1 K/mcL (0.0-0.6); Eosinophils % 0.5 %; Hematocrit 38.4 % (37.5-50.1); Hemoglobin 12.3 g/dL (12.9-16.9); Immature Granulocytes % 0.9 % (0-4); Lymphocytes # 0.7 K/mcL (0.6-4.6); Lymphocytes % 6.5 %; Mean Corpuscular Volume 93.7 fL (83.0-100.0); Mean Platelet Volume 11.3 fL (9.4-12.4); Monocytes # 0.7 K/mcL (0.0-1.3); Monocytes % 6.9 %; Platelet Count 252 K/mcL (140-400); Red Cell Distribution Width 14.6 % (11.5-14.5); Segmented Neutrophils % 84.9 %
[2018-12-16 04:40] LABS: INR 3.5; Prothrombin Time 39.7 Seconds (9.4-12.1)
[2018-12-16 04:53] LABS: Calcium 8.7 mg/dL (8.6-10.3); Potassium 3.5 mEq/L (3.5-5.1)
[2018-12-16] MEDS: Artificial Tears SOLN 15 ML BOTTLE BOTH EYES SCH ×2 (05:31→08:47)
[2018-12-16] MEDS: Budesonide/Formoterol 160/4.5 1 PUFF INH IH SCH ×2 (07:51→20:55)
[2018-12-16] MEDS: Tiotropium 18 MCG inhalation IH SCH (07:51)
[2018-12-16] MEDS ORDERED: Furosemide 40 MG/4 ML VIAL IVP ONE (07:52)
[2018-12-16] MEDS: Famotidine 20 MG/2 ML VIAL IVP SCH (08:46)
[2018-12-16] MEDS: Chlorhexidine Rinse 15 ML MOUTHWASH MM SCH (08:46)
[2018-12-16] MEDS: Venlafaxine XR (24 HR) 150 MG CAP.ER.24H PO SCH (08:47)
[2018-12-16] MEDS: Vancomycin Oral Soln 125 MG/2.5 ML UDC PO SCH ×4 (08:47→19:14)
--- NOTE | 2018-12-16 09:24 | Neurology Progress Note ---
<Xander Leon J - Last Filed: 12/16/18 09:20> Date of Encounter: 12/16/18 Time of Encounter: 09:21 Assessment and Plan (1) Encephalopathy Current Visit: No Status: Resolved Continues to be encephalopathic etiology unclear; occurring in the setting of LEE and respiratory failure on admission as well BZD's abuse Urine tox positive this admission for BZD's not Rx on OARRS Neuro exam continues to be limited in the setting of encephalopathy but reveals no obvious focal findings, brainstem reflexes intact, no meningeal sx Hypernatremia 149 today; does not explain AMS, Scr down trending 2.30 today We will get EEG today Attempt CT head Otherwise c/w medical and supportive care If patient does not begin to improve consider LP neurology will continue to follow Subjective Principal diagnosis: Encephalopathy Interval history: Patient seen and examined at the bedside in follow-up for encephalopathy. Today he is extubated and on nasal cannula and without sedation. He remains encephalopathic. He will open his eyes to painful stimulus, is non verbal and will not follow commands. No family present to discuss POC. Objective - Constitutional Vitals: Temp Pulse Resp BP Pulse Ox 91.7 F L 72 10 140/93 96 12/16/18 08:18 12/16/18 05:35 12/16/18 05:35 12/16/18 05:35 12/16/18 05:35 Exam: Examination: General Examination: *CONSTITUTIONAL: obtunded; eyes open to painful stimulus only *GENERAL APPEARANCE OF PATIENT ill appearing elderly male *EYES: pupils equal, round, reactive to light and accommodation, conjunctiva clear *CARDIOVASCULAR , no peripheral edema, distal temperature normal, dorsalis pedis pulses normal. see vitals Musculoskeletal: *GAIT AND STATION not assessed *ASSESSMENT OF MUSCLE STRENGTH IN THE UPPER AND LOWER EXTREMITIES moves extremities x4 passively *MUSCLE TONE IN THE UPPER AND LOWER EXTREMITIES normal with appropriate tone and bulk. No abnormal movements, fasciculations or atrophy identified. Neurological: *ORIENTATION encephalopathic and obtunded *REFLEXES: deep tendon reflexes were absent diffusely, no pathological reflexes were noted. Results - Laboratory Findings CBC and BMP: 12/16/18 04:17 12/16/18 04:00 Abnormal lab findings: Abnormal lab results WBC 12.8 K/mcL (4.3-11.1) H 12/14/18 10:34 RBC 4.10 M/mcL (4.19-5.50) L 12/16/18 04:17 Hgb 12.3 g/dL (12.9-16.9) L 12/16/18 04:17 Hct 35.1 % (37.5-50.1) L 12/15/18 04:46 MCHC 31.2 g/dL (31.6-35.5) L 12/14/18 10:34 RDW 14.6 % (11.5-14.5) H 12/16/18 04:17 9.0 K/mcL (1.6-8.9) H 12/16/18 04:17 PT 39.7 Seconds (9.4-12.1) H 12/16/18 04:17 ABG pH 7.31 pH Units (7.32-7.45) L 12/14/18 12:02 ABG pO2 113 mmHg (85-104) H 12/15/18 05:11 ABG HCO3 19 mEq/L (21-27) L 12/14/18 12:02 ABG Total CO2 19 mEq/L (20-26) L 12/13/18 17:03 ABG O2 Saturation 99 % (95-98) H 12/14/18 12:02 ABG Base Excess -4 mEq/L (-2 to 3) L 12/15/18 05:11 Sodium 149 mEq/L (136-145) H 12/16/18 04:00 Chloride 114 mEq/L (98-107) H 12/16/18 04:00 Carbon Dioxide 21 mEq/L (23-29) L 12/15/18 04:46 BUN 34 mg/dL (8-23) H 12/16/18 04:00 2.30 mg/dL (0.70-1.30) H 12/16/18 04:00 Est GFR ( Amer) 34 (> 60) L 12/16/18 04:00 Est GFR (Non-Af Amer) 28 (> 60) L 12/16/18 04:00 Glucose 144 mg/dL (70-105) H 12/16/18 04:00 POC Glucose 191 mg/dL (70-99) H 12/15/18 23:56 318 (280-300) H 12/16/18 04:00 Calcium 8.1 mg/dL (8.6-10.3) L 12/15/18 04:46 Phosphorus 6.1 mg/dL (2.7-4.5) H 12/13/18 18:01 Magnesium 1.5 mg/dL (1.6-2.6) L 12/13/18 18:01 0.04 ng/mL (< 0.04) H* 12/13/18 18:01 5.7 g/dL (6.4-8.9) L 12/13/18 18:01 3.4 g/dL (3.5-5.7) L 12/13/18 18:01 2.3 g/dL (2.4-3.5) L 12/13/18 18:01 Salicylates < 2.5 mg/dL (15.0-30.0) L 12/13/18 18:01 Acetaminophen < 10 mcg/mL (10-20) L 12/13/18 18:01 Consult Discharge Plan - Plan [facility]errals: [facility] Care Provider[facility] - <Benja Adhikari I - Last Filed: 12/16/18 15:52> Date of Encounter: 12/16/18 Assessment and Plan (1) Encephalopathy Current Visit: No Status: Resolved I have personally performed a face to face diagnostic evaluation, including HPI, EXAM, which is included in the Assesment and plan, which was discussed with Xander Leon CNP, I agree with the above outlined documentation. Benja Adhikari MD. NeurologyI Objective - Constitutional Vitals: Temp Pulse Resp BP Pulse Ox 97.2 F L 63 14 164/80 96 12/16/18 12:26 12/16/18 15:00 12/16/18 15:00 12/16/18 15:00 12/16/18 15:00 Results - Laboratory Findings CBC and BMP: 12/16/18 04:17 12/16/18 04:00 Abnormal lab findings: Abnormal lab results WBC 12.8 K/mcL (4.3-11.1) H 12/14/18 10:34 RBC 4.10 M/mcL (4.19-5.50) L 12/16/18 04:17 Hgb 12.3 g/dL (12.9-16.9) L 12/16/18 04:17 Hct 35.1 % (37.5-50.1) L 12/15/18 04:46 MCHC 31.2 g/dL (31.6-35.5) L 12/14/18 10:34 RDW 14.6 % (11.5-14.5) H 12/16/18 04:17 9.0 K/mcL (1.6-8.9) H 12/16/18 04:17 PT 39.7 Seconds (9.4-12.1) H 12/16/18 04:17 ABG pH 7.31 pH Units (7.32-7.45) L 12/14/18 12:02 ABG pO2 113 mmHg (85-104) H 12/15/18 05:11 ABG HCO3 19 mEq/L (21-27) L 12/14/18 12:02 ABG Total CO2 19 mEq/L (20-26) L 12/13/18 17:03 ABG O2 Saturation 99 % (95-98) H 12/14/18 12:02 ABG Base Excess -4 mEq/L (-2 to 3) L 12/15/18 05:11 Sodium 149 mEq/L (136-145) H 12/16/18 04:00 Chloride 114 mEq/L (98-107) H 12/16/18 04:00 Carbon Dioxide 21 mEq/L (23-29) L 12/15/18 04:46 BUN 34 mg/dL (8-23) H 12/16/18 04:00 2.30 mg/dL (0.70-1.30) H 12/16/18 04:00 Est GFR ( Amer) 34 (> 60) L 12/16/18 04:00 Est GFR (Non-Af Amer) 28 (> 60) L 12/16/18 04:00 Glucose 144 mg/dL (70-105) H 12/16/18 04:00 POC Glucose 202 mg/dL (70-99) H 12/16/18 11:47 318 (280-300) H 12/16/18 04:00 Calcium 8.1 mg/dL (8.6-10.3) L 12/15/18 04:46 Phosphorus 6.1 mg/dL (2.7-4.5) H 12/13/18 18:01 Magnesium 1.5 mg/dL (1.6-2.6) L 12/13/18 18:01 0.04 ng/mL (< 0.04) H* 12/13/18 18:01 5.7 g/dL (6.4-8.9) L 12/13/18 18:01 3.4 g/dL (3.5-5.7) L 12/13/18 18:01 2.3 g/dL (2.4-3.5) L 12/13/18 18:01 Salicylates < 2.5 mg/dL (15.0-30.0) L 12/13/18 18:01 Acetaminophen < 10 mcg/mL (10-20) L 12/13/18 18:01
--- NOTE | 2018-12-16 09:40 | Electrocardiograph Report ---
[address] [address] Test Date: 2018-12-14 Pat Name: Oleg Schmidt Department: 109 Room: [facility] Gender: M Palliative Care Physician: : [id number] Requested By: Mauro De Luna Order Number: [id number] Reading MD: Doug Keating Measurements Intervals [place] Rate: 62 P: CT: 0 QRS: -5 QRSD: 146 T: 162 QT: 438 QTc: 443 Interpretive Statements ATRIAL FIBRILLATION LEFT BUNDLE BRANCH BLOCK Electronically Signed On 12-16-2018 9:38:42 EDT by Doug Keating
[2018-12-16] MEDS ORDERED: Lidocaine -MPF 1% 5 ML AMPUL INFILT ONE (10:00)
--- NOTE | 2018-12-16 11:57 | Pulmonology Progress Note ---
<Grecia Smith - Last Filed: 12/16/18 16:07> Date of Encounter: 12/16/18 Time of Encounter: 08:30 Assessment and Plan (1) Acute respiratory failure with hypoxia Current Visit: Yes Status: Acute Was presented to the ED after he was found flaccid and unresponsive with decreased respiratory effort, unsure of the etiology UDS was positive for benzodiazepine, although he is not prescribed this medication at home Subsequently he was intubated without any additional sedated was ABG in the ED showed pH of 7.27 with PCO2 of 42 following intubation Respiratory failure was likely secondary to acute intoxication -Tolerating nasal cannula -Continue Symbicort and nebulizer (2) Acute encephalopathy Current Visit: Yes Status: Acute Percent with acute encephalopathy urine vaccine was positive for benzodiazepine although he is not on benzodiazepine on OARRS This morning he was unresponsive to verbal stimuli but later this afternoon became more agitated Not oriented to person place or time On his previous admission his sodium was elevated at 154 which they have can should be due to his encephalopathy unknown how acute this presentation is On his current admission his sodium was within normal limits but has been trending up this morning is [address] of the head which showed acute versus subacute infarct of the left occipital lobe which does not correlate with his current symptoms -IV fluids with dextrose ordered -Repeat CMP pending -Neurology consult -MRI of the brain ordered once tolerated, currently on Plavix and statin (3) Acute kidney failure Current Visit: No Status: Acute Creatinine on presentation was 3.27 this morning currently improved to 2.30, yesterday was 2.45 Had output of 1500 today Renal function does appear chronically poor given GFR of baseline 15 on previous admission 2 weeks ago Continue to monitor urinary output Avoid nephrotoxins and renally dose medications Qualifiers: Acute renal failure type: unspecified Qualified Code(s): N17.9 - Acute kidney failure, unspecified (4) C. difficile colitis Current Visit: Yes Status: Acute Recent admission was diagnosed with C. difficile and was started on oral vancomycin -Last dose of oral vancomycin should be on 12/24/18 -Continue oral vancomycin (5) CAD (coronary artery disease) Current Visit: Yes Status: Acute Continue home Plavix Qualifiers: Coronary Disease-Associated Artery/Lesion type: unspecified vessel or lesion type [place] vs. transplanted heart: unspecified whether [place] or transplanted heart Associated angina: angina presence unspecified Qualified Code(s): I25.10 - Atherosclerotic heart disease of [place] coronary artery without angina pectoris (6) DVT prophylaxis Current Visit: No Status: Acute Continue SCDs Subjective Principal diagnosis: Encephalopathy Interval history: Mr. Schmidt was resting in bed on 3 L of nasal cannula. Vitals were reviewed and he remained afebrile and normotensive overnight. This morning he was not responsive to sternal rub. Later in the afternoon became more agitated. Neurology was consulted to make further recommendations. He is not oriented to person place or time. Objective PUL Vital signs: Last Vital Signs Temp 91.7 F L 12/16/18 08:18 Pulse 59 12/16/18 11:00 Resp 12 12/16/18 11:00 BP 152/96 12/16/18 11:00 Pulse Ox 100 12/16/18 11:00 General appearance: no acute distress Eyes: nonicteric ENT: oropharynx moist Neck: supple Auscultation: bilateral: clear Cardiovascular: regular rate and rhythm Gastrointestinal: normoactive bowel sounds, soft, non-tender Integumentary: normal Extremities: no cyanosis, no edema, no clubbing other (Has waxing and waning of mental status) other (Agitated, not oriented to person place and time) Results - Laboratory Findings CBC and BMP: 12/16/18 04:17 12/16/18 04:00 ABG ABG pH 7.37 pH Units (7.32-7.45) 12/15/18 05:11 ABG pCO2 36 mmHg (35-45) 12/15/18 05:11 ABG pO2 113 mmHg (85-104) H 12/15/18 05:11 ABG O2 Saturation 98 % (95-98) 12/15/18 05:11 PT/INR, D-dimer PT 39.7 Seconds (9.4-12.1) H 12/16/18 04:17 Abnormal lab findings: Abnormal lab results WBC 12.8 K/mcL (4.3-11.1) H 12/14/18 10:34 RBC 4.10 M/mcL (4.19-5.50) L 12/16/18 04:17 Hgb 12.3 g/dL (12.9-16.9) L 12/16/18 04:17 Hct 35.1 % (37.5-50.1) L 12/15/18 04:46 MCHC 31.2 g/dL (31.6-35.5) L 12/14/18 10:34 RDW 14.6 % (11.5-14.5) H 12/16/18 04:17 9.0 K/mcL (1.6-8.9) H 12/16/18 04:17 PT 39.7 Seconds (9.4-12.1) H 12/16/18 04:17 ABG pH 7.31 pH Units (7.32-7.45) L 12/14/18 12:02 ABG pO2 113 mmHg (85-104) H 12/15/18 05:11 ABG HCO3 19 mEq/L (21-27) L 12/14/18 12:02 ABG Total CO2 19 mEq/L (20-26) L 12/13/18 17:03 ABG O2 Saturation 99 % (95-98) H 12/14/18 12:02 ABG Base Excess -4 mEq/L (-2 to 3) L 12/15/18 05:11 Sodium 149 mEq/L (136-145) H 12/16/18 04:00 Chloride 114 mEq/L (98-107) H 12/16/18 04:00 Carbon Dioxide 21 mEq/L (23-29) L 12/15/18 04:46 BUN 34 mg/dL (8-23) H 12/16/18 04:00 2.30 mg/dL (0.70-1.30) H 12/16/18 04:00 Est GFR ( Amer) 34 (> 60) L 12/16/18 04:00 Est GFR (Non-Af Amer) 28 (> 60) L 12/16/18 04:00 Glucose 144 mg/dL (70-105) H 12/16/18 04:00 POC Glucose 191 mg/dL (70-99) H 12/15/18 23:56 318 (280-300) H 12/16/18 04:00 Calcium 8.1 mg/dL (8.6-10.3) L 12/15/18 04:46 Phosphorus 6.1 mg/dL (2.7-4.5) H 12/13/18 18:01 Magnesium 1.5 mg/dL (1.6-2.6) L 12/13/18 18:01 0.04 ng/mL (< 0.04) H* 12/13/18 18:01 5.7 g/dL (6.4-8.9) L 12/13/18 18:01 3.4 g/dL (3.5-5.7) L 12/13/18 18:01 2.3 g/dL (2.4-3.5) L 12/13/18 18:01 Salicylates < 2.5 mg/dL (15.0-30.0) L 12/13/18 18:01 Acetaminophen < 10 mcg/mL (10-20) L 12/13/18 18:01 - Clinical Findings Intake & Output: Intake & Output 12/15/18 12/16/18 12/16/18 23:59 07:59 15:59 Intake Total 49.8 / 1689.8 44.2 / 100.2 56 / 100.2 Output Total 975 / 2050 1100 / 1450 350 / 1450 Balance -925.2 / -360.2 -1055.8 / -1349.8 -294 / -1349.8 Weight 72.6 kg Consult Discharge Plan - Plan [facility]errals: [facility] [Primary Care Provider[facility] - <Biju Chou S - Last Filed: 12/16/18 23:30> Date of Encounter: 12/16/18 Objective PUL Vital signs: Last Vital Signs Temp 97.6 F 12/16/18 23:00 Pulse 67 12/16/18 23:00 Resp 16 12/16/18 23:00 BP 125/73 12/16/18 23:00 Pulse Ox 96 12/16/18 23:00 Results - Laboratory Findings CBC and BMP: 12/16/18 04:17 12/16/18 16:27 ABG ABG pH 7.37 pH Units (7.32-7.45) 12/15/18 05:11 ABG pCO2 36 mmHg (35-45) 12/15/18 05:11 ABG pO2 113 mmHg (85-104) H 12/15/18 05:11 ABG O2 Saturation 98 % (95-98) 12/15/18 05:11 PT/INR, D-dimer PT 39.7 Seconds (9.4-12.1) H 12/16/18 04:17 Abnormal lab findings: Abnormal lab results WBC 12.8 K/mcL (4.3-11.1) H 12/14/18 10:34 RBC 4.10 M/mcL (4.19-5.50) L 12/16/18 04:17 Hgb 12.3 g/dL (12.9-16.9) L 12/16/18 04:17 Hct 35.1 % (37.5-50.1) L 12/15/18 04:46 MCHC 31.2 g/dL (31.6-35.5) L 12/14/18 10:34 RDW 14.6 % (11.5-14.5) H 12/16/18 04:17 9.0 K/mcL (1.6-8.9) H 12/16/18 04:17 PT 39.7 Seconds (9.4-12.1) H 12/16/18 04:17 ABG pH 7.31 pH Units (7.32-7.45) L 12/14/18 12:02 ABG pO2 113 mmHg (85-104) H 12/15/18 05:11 ABG HCO3 19 mEq/L (21-27) L 12/14/18 12:02 ABG Total CO2 19 mEq/L (20-26) L 12/13/18 17:03 ABG O2 Saturation 99 % (95-98) H 12/14/18 12:02 ABG Base Excess -4 mEq/L (-2 to 3) L 12/15/18 05:11 Sodium 148 mEq/L (136-145) H 12/16/18 16:27 Chloride 112 mEq/L (98-107) H 12/16/18 16:27 Carbon Dioxide 21 mEq/L (23-29) L 12/15/18 04:46 BUN 42 mg/dL (8-23) H 12/16/18 16:27 2.42 mg/dL (0.70-1.30) H 12/16/18 16:27 Est GFR ( Amer) 32 (> 60) L 12/16/18 16:27 Est GFR (Non-Af Amer) 26 (> 60) L 12/16/18 16:27 Glucose 191 mg/dL (70-105) H 12/16/18 16:27 POC Glucose 174 mg/dL (70-99) H 12/16/18 22:15 322 (280-300) H 12/16/18 16:27 Calcium 8.1 mg/dL (8.6-10.3) L 12/15/18 04:46 Phosphorus 6.1 mg/dL (2.7-4.5) H 12/13/18 18:01 Magnesium 1.5 mg/dL (1.6-2.6) L 12/13/18 18:01 0.04 ng/mL (< 0.04) H* 12/13/18 18:01 5.7 g/dL (6.4-8.9) L 12/13/18 18:01 3.4 g/dL (3.5-5.7) L 12/13/18 18:01 2.3 g/dL (2.4-3.5) L 12/13/18 18:01 Salicylates < 2.5 mg/dL (15.0-30.0) L 12/13/18 18:01 Acetaminophen < 10 mcg/mL (10-20) L 12/13/18 18:01 - Clinical Findings Intake & Output: Intake & Output 12/16/18 12/16/18 12/16/18 07:59 15:59 23:59 Intake Total 44.2 / 150.2 56 / 150.2 50 / 150.2 Output Total 1100 / 2950 1050 / 2950 800 / 2950 Balance -1055.8 / -2799.8 -994 / -2799.8 -750 / -2799.8 Weight 72.3 kg 73 kg - Attending Attestation - Attending Attestation I saw and evaluated this patient and my medical decision-making was reviewed with the Resident Physician. I agree with the documented findings, disposition and treatment plan as described except to the extent set forth below. We independently had [id number] contact with the patient Patient seen and examined at bedside Labs, radiology, chart personally reviewed. Management was reviewed during multidisciplinary critical care rounds. 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 Patient is slowly waking up following commands 12/16 patient is still encephalopathy most likely to ascertain toxic/metabolic CT head shows acute/subacute occipital infarct neurology is following patient is not mono antiplatelet therapy Pulm: Patient has acceptable oxygenation and ventilation patient passed the spontaneous breathing trial patient has good gag reflex will try to extubate to nasal cannula 12/16 patient has acceptable oxygenation and ventilation has some hydrostatic pulmonary edema,That is increasing oxygen requirement will do gentle diuresis. Cards: And did not have any evidence of a non-ST elevation HI to control afterload and preload to maintain sinus rhythm. 12/16 patient is hemodynamically stable FEN-GI: Once extubated to keep him nothing by mouth will assess with swallowing eval and speech therapy. 12/16 he remained nothing by mouth Renal: Acute on chronic kidney injury adequate urine output we will trend serum creatinine. ID: To cover the broad-spectrum antibiotics will de-escalate Heme/Onc: Labs reviewed Endo: Glucose Monitored Integ/MSK: Skin Care per routine ICU Nursing Protocol to prevent ulcers. Lines: All lines examined without evidence of infection : Dispo: patient is critically ill high chance of reintubation CODE: full code
[2018-12-16] MEDS ORDERED: Haloperidol Lactate 5 MG/ML VIAL IVP ONE ×2 (12:29→13:13)
[2018-12-16] MEDS ORDERED: Haloperidol Lactate 5 MG/ML VIAL ONE (13:15)
[2018-12-16 17:57] LABS: Calcium 9.2 mg/dL (8.6-10.3); Potassium 4.2 mEq/L (3.5-5.1)
[2018-12-17] MEDS: *HR* LORazepam 2 MG/ML VIAL IVP PRN ×3 (01:39→20:00)
[2018-12-17 05:11] LABS: Basophils # 0.1 K/mcL (0.0-0.2); Basophils % 0.5 %; Eosinophils % 0.1 %; Hematocrit 43.6 % (37.5-50.1); Immature Granulocytes % 0.6 % (0-4); Lymphocytes % 9.3 %; Mean Corpuscular HGB Conc 31.9 g/dL (31.6-35.5); Mean Corpuscular Hemoglobin 29.4 pg (28.0-33.3); Mean Corpuscular Volume 92.4 fL (83.0-100.0); Mean Platelet Volume 11.3 fL (9.4-12.4); Monocytes # 0.8 K/mcL (0.0-1.3); Monocytes % 7.1 %; Neutrophils # 9.1 K/mcL (1.6-8.9); Platelet Count 252 K/mcL (140-400); Red Blood Count 4.72 M/mcL (4.19-5.50); Red Cell Distribution Width 14.6 % (11.5-14.5); Segmented Neutrophils % 82.4 %
[2018-12-17] MEDS: Insulin LISPRO 300 UNITS/3 ML VIAL SQ SCH ×4 (05:12→23:24)
[2018-12-17 05:15] LABS: Hemoglobin 13.9 g/dL (12.9-16.9)
[2018-12-17 05:19] LABS: Prothrombin Time 33.7 Seconds (9.4-12.1)
[2018-12-17 05:31] LABS: Calcium 9.3 mg/dL (8.6-10.3); Potassium 4.1 mEq/L (3.5-5.1)
[2018-12-17] MEDS: Budesonide/Formoterol 160/4.5 1 PUFF INH IH SCH ×2 (08:13→20:33)
[2018-12-17] MEDS: Tiotropium 18 MCG inhalation IH SCH (08:13)
[2018-12-17] MEDS: Famotidine 20 MG/2 ML VIAL IVP SCH (08:24)
[2018-12-17] MEDS: Vancomycin Oral Soln 125 MG/2.5 ML UDC PO SCH ×4 (08:24→18:58)
[2018-12-17] MEDS: Venlafaxine XR (24 HR) 150 MG CAP.ER.24H PO SCH (08:25)
[2018-12-17] MEDS ORDERED: D5% in Water 1,000 ML IVC SCH ×2 (08:45→09:00)
[2018-12-17] MEDS: Dexmedetomidine HCl 400 MCG/100 ML MLS IVC SCH ×3 (11:33→19:09)
--- NOTE | 2018-12-17 11:43 | Pulmonology Progress Note ---
<Grecia Smith - Last Filed: 12/17/18 18:16> Date of Encounter: 12/17/18 Time of Encounter: 09:15 Assessment and Plan (1) Acute encephalopathy Current Visit: Yes Status: Acute Percent with acute encephalopathy urine vaccine was positive for benzodiazepine although he is not on benzodiazepine on OARRS This morning he was unresponsive to verbal stimuli but later this afternoon became more agitated Not oriented to person place or time On his previous admission his sodium was elevated at 154 which they have can should be due to his encephalopathy unknown how acute this presentation is Sodium continues to remain elevated this morning [address] of the head which showed acute versus subacute infarct of the left occipital lobe which does not correlate with his current symptoms -IV fluids with dextrose ordered -Continue to follow BMP -Neurology consulted and recommends starting Depakote -MRI of the brain ordered once tolerated (2) Acute respiratory failure with hypoxia Current Visit: Yes Status: Resolved Was presented to the ED after he was found flaccid and unresponsive with decreased respiratory effort, unsure of the etiology UDS was positive for benzodiazepine, although he is not prescribed this medication at home Subsequently he was intubated without any additional sedated ABG in the ED showed pH of 7.27 with PCO2 of 42 following intubation Respiratory failure was likely secondary to acute intoxication -Extubated 2 days ago -Tolerating nasal cannula -Continue Symbicort and nebulizer (3) Acute kidney failure Current Visit: No Status: Acute Improving since admission Creatinine on presentation was 3.27 this morning currently improved to 2.30, yesterday was 2.54 Output of 850 today Renal function does appear chronically poor given GFR of baseline 15 on previous admission 2 weeks ago Continue to monitor urinary output Avoid nephrotoxins and renally dose medications Qualifiers: Acute renal failure type: unspecified Qualified Code(s): N17.9 - Acute kidney failure, unspecified (4) C. difficile colitis Current Visit: Yes Status: Acute Recent admission was diagnosed with C. difficile and was started on oral vancomycin -Last dose of oral vancomycin should be on 12/24/18 -Vancomycin has been on hold given he cannot tolerate medication orally -Has not had any bowel movement since admission (5) CAD (coronary artery disease) Current Visit: Yes Status: Acute Continue rectal aspirin given he can have anything orally Qualifiers: Coronary Disease-Associated Artery/Lesion type: unspecified vessel or lesion type [place] vs. transplanted heart: unspecified whether [place] or transplanted heart Associated angina: angina presence unspecified Qualified Code(s): I25.10 - Atherosclerotic heart disease of [place] coronary artery without angina pectoris (6) DVT prophylaxis Current Visit: No Status: Acute Continue SCDs Subjective Principal diagnosis: Encephalopathy Interval history: Mr. Schmidt was resting in bed on 2 L of nasal cannula. Vitals were reviewed and he remained afebrile and normotensive overnight. He is awake and alert but not oriented to person place or time. Thought content congruent. Objective PUL Vital signs: Last Vital Signs Temp 97.0 F L 12/17/18 11:00 Pulse 75 12/17/18 11:00 Resp 18 12/17/18 11:00 BP 145/95 12/17/18 11:00 Pulse Ox 99 12/17/18 11:00 General appearance: no acute distress, alert Eyes: nonicteric ENT: oropharynx dry Effort: normal Auscultation: bilateral: clear (Clear upper lung lobes), diminished breath sounds (Diminished bilateral lower lobes) Cardiovascular: irregular rhythm Gastrointestinal: normoactive bowel sounds, soft, non-tender, non-distended Extremities: no cyanosis, no edema, pulses normal Musculoskeletal: no deformities other (Awake alert and oriented to person place or time) Results - Laboratory Findings CBC and BMP: 12/17/18 04:56 12/17/18 04:56 ABG ABG pH 7.37 pH Units (7.32-7.45) 12/15/18 05:11 ABG pCO2 36 mmHg (35-45) 12/15/18 05:11 ABG pO2 113 mmHg (85-104) H 12/15/18 05:11 ABG O2 Saturation 98 % (95-98) 12/15/18 05:11 PT/INR, D-dimer PT 33.7 Seconds (9.4-12.1) H 12/17/18 04:56 Abnormal lab findings: Abnormal lab results WBC 12.8 K/mcL (4.3-11.1) H 12/14/18 10:34 RBC 4.10 M/mcL (4.19-5.50) L 12/16/18 04:17 Hgb 12.3 g/dL (12.9-16.9) L 12/16/18 04:17 Hct 35.1 % (37.5-50.1) L 12/15/18 04:46 MCHC 31.2 g/dL (31.6-35.5) L 12/14/18 10:34 RDW 14.6 % (11.5-14.5) H 12/17/18 04:56 9.1 K/mcL (1.6-8.9) H 12/17/18 04:56 PT 33.7 Seconds (9.4-12.1) H 12/17/18 04:56 ABG pH 7.31 pH Units (7.32-7.45) L 12/14/18 12:02 ABG pO2 113 mmHg (85-104) H 12/15/18 05:11 ABG HCO3 19 mEq/L (21-27) L 12/14/18 12:02 ABG Total CO2 19 mEq/L (20-26) L 12/13/18 17:03 ABG O2 Saturation 99 % (95-98) H 12/14/18 12:02 ABG Base Excess -4 mEq/L (-2 to 3) L 12/15/18 05:11 Sodium 150 mEq/L (136-145) H 12/17/18 04:56 Chloride 112 mEq/L (98-107) H 12/17/18 04:56 Carbon Dioxide 21 mEq/L (23-29) L 12/17/18 04:56 BUN 50 mg/dL (8-23) H 12/17/18 04:56 2.54 mg/dL (0.70-1.30) H 12/17/18 04:56 Est GFR ( Amer) 30 (> 60) L 12/17/18 04:56 Est GFR (Non-Af Amer) 25 (> 60) L 12/17/18 04:56 Glucose 226 mg/dL (70-105) H 12/17/18 04:56 POC Glucose 214 mg/dL (70-99) H 12/17/18 11:25 330 (280-300) H 12/17/18 04:56 Calcium 8.1 mg/dL (8.6-10.3) L 12/15/18 04:46 Phosphorus 6.1 mg/dL (2.7-4.5) H 12/13/18 18:01 Magnesium 1.5 mg/dL (1.6-2.6) L 12/13/18 18:01 0.04 ng/mL (< 0.04) H* 12/13/18 18:01 5.7 g/dL (6.4-8.9) L 12/13/18 18:01 3.4 g/dL (3.5-5.7) L 12/13/18 18:01 2.3 g/dL (2.4-3.5) L 12/13/18 18:01 Salicylates < 2.5 mg/dL (15.0-30.0) L 12/13/18 18:01 Acetaminophen < 10 mcg/mL (10-20) L 12/13/18 18:01 - Clinical Findings Intake & Output: Intake & Output 12/16/18 12/17/18 12/17/18 23:59 07:59 15:59 Intake Total 100 / 200.2 100 / 100 Output Total 800 / 2950 400 / 600 200 / 600 Balance -700 / -2749.8 -400 / -500 -100 / -500 Weight 73 kg Consult Discharge Plan - Plan [facility]errals: [facility] [Primary Care Provider[facility] - <Biju Chou - Last Filed: 12/17/18 20:27> Date of Encounter: 12/17/18 Objective PUL Vital signs: Last Vital Signs Temp 97.8 F 12/17/18 19:00 Pulse 72 12/17/18 20:00 Resp 17 12/17/18 20:00 BP 139/79 12/17/18 20:00 Pulse Ox 96 12/17/18 20:00 Results - Laboratory Findings CBC and BMP: 12/17/18 04:56 12/17/18 04:56 ABG ABG pH 7.37 pH Units (7.32-7.45) 12/15/18 05:11 ABG pCO2 36 mmHg (35-45) 12/15/18 05:11 ABG pO2 113 mmHg (85-104) H 12/15/18 05:11 ABG O2 Saturation 98 % (95-98) 12/15/18 05:11 PT/INR, D-dimer PT 33.7 Seconds (9.4-12.1) H 12/17/18 04:56 Abnormal lab findings: Abnormal lab results WBC 12.8 K/mcL (4.3-11.1) H 12/14/18 10:34 RBC 4.10 M/mcL (4.19-5.50) L 12/16/18 04:17 Hgb 12.3 g/dL (12.9-16.9) L 12/16/18 04:17 Hct 35.1 % (37.5-50.1) L 12/15/18 04:46 MCHC 31.2 g/dL (31.6-35.5) L 12/14/18 10:34 RDW 14.6 % (11.5-14.5) H 12/17/18 04:56 9.1 K/mcL (1.6-8.9) H 12/17/18 04:56 PT 33.7 Seconds (9.4-12.1) H 12/17/18 04:56 ABG pH 7.31 pH Units (7.32-7.45) L 12/14/18 12:02 ABG pO2 113 mmHg (85-104) H 12/15/18 05:11 ABG HCO3 19 mEq/L (21-27) L 12/14/18 12:02 ABG Total CO2 19 mEq/L (20-26) L 12/13/18 17:03 ABG O2 Saturation 99 % (95-98) H 12/14/18 12:02 ABG Base Excess -4 mEq/L (-2 to 3) L 12/15/18 05:11 Sodium 150 mEq/L (136-145) H 12/17/18 04:56 Chloride 112 mEq/L (98-107) H 12/17/18 04:56 Carbon Dioxide 21 mEq/L (23-29) L 12/17/18 04:56 BUN 50 mg/dL (8-23) H 12/17/18 04:56 2.54 mg/dL (0.70-1.30) H 12/17/18 04:56 Est GFR ( Amer) 30 (> 60) L 12/17/18 04:56 Est GFR (Non-Af Amer) 25 (> 60) L 12/17/18 04:56 Glucose 226 mg/dL (70-105) H 12/17/18 04:56 POC Glucose 214 mg/dL (70-99) H 12/17/18 11:25 330 (280-300) H 12/17/18 04:56 Calcium 8.1 mg/dL (8.6-10.3) L 12/15/18 04:46 Phosphorus 6.1 mg/dL (2.7-4.5) H 12/13/18 18:01 Magnesium 1.5 mg/dL (1.6-2.6) L 12/13/18 18:01 0.04 ng/mL (< 0.04) H* 12/13/18 18:01 5.7 g/dL (6.4-8.9) L 12/13/18 18:01 3.4 g/dL (3.5-5.7) L 12/13/18 18:01 2.3 g/dL (2.4-3.5) L 12/13/18 18:01 Salicylates < 2.5 mg/dL (15.0-30.0) L 12/13/18 18:01 Acetaminophen < 10 mcg/mL (10-20) L 12/13/18 18:01 - Clinical Findings Intake & Output: Intake & Output 12/17/18 12/17/18 12/17/18 07:59 15:59 23:59 Intake Total 100 / 1310 1210 / 1310 Output Total 400 / 950 450 / 950 100 / 950 Balance -400 / 360 -350 / 360 1110 / 360 - Attending Attestation I saw and evaluated this patient and my medical decision-making was reviewed with the Resident Physician. I agree with the documented findings, disposition and treatment plan as described except to the extent set forth below. We independently had [id number] contact with the patient Patient seen and examined at bedside Labs, radiology, chart personally reviewed. Management was reviewed during multidisciplinary critical care rounds. CARBIDE GRINDER: Patient is still encephalopathy more awake following commands appreciate neurology recommendation EEG shows possible seizure activity patient started on valproic acid Pulm: Patient is stable oxygenation and ventilation Cards: Patient is hemodynamically stable FEN-GI: We will try NG tube feeding if it does not work. I think about other access for feeding. Renal: Labs and output were reviewed ID: Patient is C. difficile colitis on IV Flagyl cannot give by mouth vancomycin need to consider vancomycin enemas. Heme/Onc: Labs reviewed Endo: Glucose Monitored Integ/MSK: Skin Care per routine ICU Nursing Protocol to prevent ulcers. Lines: All lines examined without evidence of infection : Dispo: to be transferred to 2 N. CODE: Full code
--- NOTE | 2018-12-17 12:04 | Neurology Progress Note ---
<Xander Leon - Last Filed: 12/17/18 12:01> Date of Encounter: 12/17/18 Time of Encounter: 12:01 Assessment and Plan (1) Encephalopathy Current Visit: No Status: Resolved Clinically, he is stable and has had some improvement overnight. He is awake on my exam and will follow simple commands and he is attempting to verbalize yes or no answers. 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 Regards to neurological exam. Moves all 4 extremities and commands today. He grimaces to noxious stimuli, EOMI intact and will follow this provider throughout the room. CT of head completed yesterday showing concerns for acute versus subacute infarct in the left occipital lobe; I do not suspect this is contributing to his encephalopathic state. Patient started taking monotherapy with Plavix and we recommend to continue this at this time. No need for adding aspirin. He is on Coumadin being dosed per pharmacy. Recommend MRI when able to tolerate. Continue with neuro assessments per stroke protocol. Neurology will continue to follow at this time Subjective Principal diagnosis: Encephalopathy Interval history: Patient seen and examined at the bedside in follow-up for encephalopathy. Clinically, he has improved somewhat overnight. Today he is able to follow this provider throughout the room and make eye contact. He is attempting to verbalize as well. However, ultimately he remains encephalopathic. Given recent history of cardiac arrest with suspected anoxia the patient likely has a fragile brain and will take time to recover. No family present to discuss plan of care at this time. Objective - Constitutional Vitals: Temp Pulse Resp BP Pulse Ox 97.0 F L 75 18 145/95 99 12/17/18 11:00 12/17/18 11:00 12/17/18 11:00 12/17/18 11:00 12/17/18 11:00 Exam: Examination: General Examination: Awake today on exam and attempts to verbalize basic yes or no answers. However, continues to be encephalopathic and is requiring frequent redirection. He will fall back asleep during exam but will arouse with verbal stimulus. *GENERAL APPEARANCE OF PATIENT ill appearing elderly male *EYES: pupils equal, round, reactive to light and accommodation, conjunctiva clear, EOMI intact, we will follow provider throughout the room. *CARDIOVASCULAR no peripheral edema, distal temperature normal, dorsalis pedis pulses normal. see vitals Musculoskeletal: *GAIT AND STATION not assessed *ASSESSMENT OF MUSCLE STRENGTH IN THE UPPER AND LOWER EXTREMITIES moves extremities x4 to command but is grossly weak overall. Strength bilaterally upper and lower 3/5 *MUSCLE TONE IN THE UPPER AND LOWER EXTREMITIES normal with appropriate tone and bulk. No abnormal movements, fasciculations or atrophy identified. Neurological: *ORIENTATION continues to be encephalopathic *REFLEXES: deep tendon reflexes were absent diffusely, no pathological reflexes were noted. Results - Laboratory Findings CBC and BMP: 12/17/18 04:56 12/17/18 04:56 Abnormal lab findings: Abnormal lab results WBC 12.8 K/mcL (4.3-11.1) H 12/14/18 10:34 RBC 4.10 M/mcL (4.19-5.50) L 12/16/18 04:17 Hgb 12.3 g/dL (12.9-16.9) L 12/16/18 04:17 Hct 35.1 % (37.5-50.1) L 12/15/18 04:46 MCHC 31.2 g/dL (31.6-35.5) L 12/14/18 10:34 RDW 14.6 % (11.5-14.5) H 12/17/18 04:56 9.1 K/mcL (1.6-8.9) H 12/17/18 04:56 PT 33.7 Seconds (9.4-12.1) H 12/17/18 04:56 ABG pH 7.31 pH Units (7.32-7.45) L 12/14/18 12:02 ABG pO2 113 mmHg (85-104) H 12/15/18 05:11 ABG HCO3 19 mEq/L (21-27) L 12/14/18 12:02 ABG Total CO2 19 mEq/L (20-26) L 12/13/18 17:03 ABG O2 Saturation 99 % (95-98) H 12/14/18 12:02 ABG Base Excess -4 mEq/L (-2 to 3) L 12/15/18 05:11 Sodium 150 mEq/L (136-145) H 12/17/18 04:56 Chloride 112 mEq/L (98-107) H 12/17/18 04:56 Carbon Dioxide 21 mEq/L (23-29) L 12/17/18 04:56 BUN 50 mg/dL (8-23) H 12/17/18 04:56 2.54 mg/dL (0.70-1.30) H 12/17/18 04:56 Est GFR ( Amer) 30 (> 60) L 12/17/18 04:56 Est GFR (Non-Af Amer) 25 (> 60) L 12/17/18 04:56 Glucose 226 mg/dL (70-105) H 12/17/18 04:56 POC Glucose 214 mg/dL (70-99) H 12/17/18 11:25 330 (280-300) H 12/17/18 04:56 Calcium 8.1 mg/dL (8.6-10.3) L 12/15/18 04:46 Phosphorus 6.1 mg/dL (2.7-4.5) H 12/13/18 18:01 Magnesium 1.5 mg/dL (1.6-2.6) L 12/13/18 18:01 0.04 ng/mL (< 0.04) H* 12/13/18 18:01 5.7 g/dL (6.4-8.9) L 12/13/18 18:01 3.4 g/dL (3.5-5.7) L 12/13/18 18:01 2.3 g/dL (2.4-3.5) L 12/13/18 18:01 Salicylates < 2.5 mg/dL (15.0-30.0) L 12/13/18 18:01 Acetaminophen < 10 mcg/mL (10-20) L 12/13/18 18:01 Consult Discharge Plan - Plan [facility]errals: [facility] [Primary Care Provider] - <Benja Adhikari I - Last Filed: 12/17/18 16:08> Date of Encounter: 12/17/18 Assessment and Plan (1) Encephalopathy Current Visit: No Status: Resolved I have personally performed a face to face diagnostic evaluation, including HPI, EXAM, which is included in the Assesment and plan, which was discussed with Xander Leon CNP, I agree with the above outlined documentation. Benja Adhikari MD. NeurologyI Objective - Constitutional Vitals: Temp Pulse Resp BP Pulse Ox 97.7 F 106 19 181/117 96 12/17/18 15:35 12/17/18 13:00 12/17/18 13:00 12/17/18 13:00 12/17/18 13:00 Results - Laboratory Findings CBC and BMP: 12/17/18 04:56 12/17/18 04:56 Abnormal lab findings: Abnormal lab results WBC 12.8 K/mcL (4.3-11.1) H 12/14/18 10:34 RBC 4.10 M/mcL (4.19-5.50) L 12/16/18 04:17 Hgb 12.3 g/dL (12.9-16.9) L 12/16/18 04:17 Hct 35.1 % (37.5-50.1) L 12/15/18 04:46 MCHC 31.2 g/dL (31.6-35.5) L 12/14/18 10:34 RDW 14.6 % (11.5-14.5) H 12/17/18 04:56 9.1 K/mcL (1.6-8.9) H 12/17/18 04:56 PT 33.7 Seconds (9.4-12.1) H 12/17/18 04:56 ABG pH 7.31 pH Units (7.32-7.45) L 12/14/18 12:02 ABG pO2 113 mmHg (85-104) H 12/15/18 05:11 ABG HCO3 19 mEq/L (21-27) L 12/14/18 12:02 ABG Total CO2 19 mEq/L (20-26) L 12/13/18 17:03 ABG O2 Saturation 99 % (95-98) H 12/14/18 12:02 ABG Base Excess -4 mEq/L (-2 to 3) L 12/15/18 05:11 Sodium 150 mEq/L (136-145) H 12/17/18 04:56 Chloride 112 mEq/L (98-107) H 12/17/18 04:56 Carbon Dioxide 21 mEq/L (23-29) L 12/17/18 04:56 BUN 50 mg/dL (8-23) H 12/17/18 04:56 2.54 mg/dL (0.70-1.30) H 12/17/18 04:56 Est GFR ( Amer) 30 (> 60) L 12/17/18 04:56 Est GFR (Non-Af Amer) 25 (> 60) L 12/17/18 04:56 Glucose 226 mg/dL (70-105) H 12/17/18 04:56 POC Glucose 214 mg/dL (70-99) H 12/17/18 11:25 330 (280-300) H 12/17/18 04:56 Calcium 8.1 mg/dL (8.6-10.3) L 12/15/18 04:46 Phosphorus 6.1 mg/dL (2.7-4.5) H 12/13/18 18:01 Magnesium 1.5 mg/dL (1.6-2.6) L 12/13/18 18:01 0.04 ng/mL (< 0.04) H* 12/13/18 18:01 5.7 g/dL (6.4-8.9) L 12/13/18 18:01 3.4 g/dL (3.5-5.7) L 12/13/18 18:01 2.3 g/dL (2.4-3.5) L 12/13/18 18:01 Salicylates < 2.5 mg/dL (15.0-30.0) L 12/13/18 18:01 Acetaminophen < 10 mcg/mL (10-20) L 12/13/18 18:01
[2018-12-17] MEDS ORDERED: Valproic Acid INJ 1,000 MG in 0.9 % Sodium Chloride 100 ML IVPB ONE ×2 (16:39→17:44)
--- NOTE | 2018-12-17 16:47 | EEG/EMG/Oth Biometrics Report ---
EEG Procedure Report EEG Procedure: Routine EEG Procedure Note: This EEG was acquired with standard international 10-20 electrode placement system with EKG recording. The Background activity during this EEG was replaced by diffuse background slowing in the range of delta and theta activity with predominant delta activity. T EEG tracing gradually evolved into higher amplitude delta activity and then diffusely thyrhmic sharp wave with a frequency of 1-1.5Hz rather persistently. This periodic pattern consists of bursts of activity (mixture of sharp and slow waves) periodically interrupted by slow waves, Photic stimulation produced no abnormalities. Clinical interpretation Impression: This is a severely abnormal EEG due to presence of bilateral periodic epileptiform discharges, which is consistnet with severe diffuse cerebral dysfunction that can be seen in patients with severe encephalopathy, anoxic brain injury, toxic/metabolic/ infectious etiologies or it can occur as an inctal phenomenon in appropriate clinical settings. Clinical correlation advised
[2018-12-17] MEDS ORDERED: Dextrose Gel 15 GM/37.5 ML TUBE PO PRN ×2 (17:44)
[2018-12-17] MEDS ORDERED: Artificial Tears SOLN 15 ML BOTTLE BOTH EYES PRN (17:44)
[2018-12-17] MEDS ORDERED: *HR* Dextrose 50 % in Water (Syg) 50 ML SYRINGE IVP PRN (17:44)
[2018-12-17] MEDS ORDERED: *HR* Metoprolol 5 MG/5 ML VIAL IVP PRN (17:44)
[2018-12-17] MEDS ORDERED: Naloxone 0.4 MG/ML INJ IVP PRN (17:44)
[2018-12-17] MEDS ORDERED: Albuterol 2.5 MG/3 ML NEBULIZER IH PRN (17:44)
[2018-12-17] MEDS: D5% in Water 1,000 ML IVC SCH ×2 (18:25→19:09)
[2018-12-17] MEDS: Valproic Acid INJ 500 MG in 0.9 % Sodium Chloride 100 ML IVPB SCH (23:26)
[2018-12-18] MEDS ORDERED: Valproic Acid INJ 500 MG in 0.9 % Sodium Chloride 100 ML IVPB SCH
[2018-12-18] MEDS: *HR* LORazepam 2 MG/ML VIAL IVP PRN (01:07)
[2018-12-18] MEDS: Dexmedetomidine HCl 400 MCG/100 ML MLS IVC SCH (04:42)
[2018-12-18] MEDS: D5% in Water 1,000 ML IVC SCH (04:43)
[2018-12-18] MEDS: Insulin LISPRO 300 UNITS/3 ML VIAL SQ SCH ×3 (05:07→18:51)
[2018-12-18] MEDS: Budesonide/Formoterol 160/4.5 1 PUFF INH IH SCH (07:46)
[2018-12-18] MEDS: Famotidine 20 MG/2 ML VIAL IVP SCH (08:55)
[2018-12-18] MEDS ORDERED: Tiotropium 18 MCG inhalation IH SCH (10:00)
[2018-12-18] MEDS: Valproic Acid INJ 500 MG in 0.9 % Sodium Chloride 100 ML IVPB SCH ×2 (10:03→18:46)
[2018-12-18 10:13] LABS: Basophils # 0.1 K/mcL (0.0-0.2); Basophils % 0.6 %; Eosinophils # 0.1 K/mcL (0.0-0.6); Hematocrit 42.3 % (37.5-50.1); Hemoglobin 13.7 g/dL (12.9-16.9); Immature Granulocytes % 0.4 % (0-4); Lymphocytes # 1.5 K/mcL (0.6-4.6); Lymphocytes % 14.1 %; Mean Corpuscular HGB Conc 32.4 g/dL (31.6-35.5); Mean Corpuscular Hemoglobin 30.2 pg (28.0-33.3); Mean Corpuscular Volume 93.2 fL (83.0-100.0); Mean Platelet Volume 11.2 fL (9.4-12.4); Monocytes # 0.8 K/mcL (0.0-1.3); Monocytes % 7.4 %; Neutrophils # 7.9 K/mcL (1.6-8.9); Platelet Count 236 K/mcL (140-400); Red Blood Count 4.54 M/mcL (4.19-5.50); Red Cell Distribution Width 14.3 % (11.5-14.5); Segmented Neutrophils % 76.5 %
[2018-12-18 10:34] LABS: Calcium 9.1 mg/dL (8.6-10.3)
[2018-12-18] MEDS ORDERED: Potassium Chloride Elixir 20 MEQ/15 ML UDC PO ONE (10:37)
[2018-12-18 10:44] LABS: INR 5.2; Prothrombin Time 58.9 Seconds (9.4-12.1)
[2018-12-18] MEDS ORDERED: Ipratropium/Albuterol Neb 3 ML ONE (10:57)
[2018-12-18] MEDS: Budesonide Neb 0.5 MG/2 ML IH SCH ×2 (11:20→19:59)
[2018-12-18] MEDS: Ipratropium/Albuterol Neb 3 ML IH SCH ×4 (11:20→23:44)
[2018-12-18] MEDS: Vancomycin Oral Soln 125 MG/2.5 ML UDC PO SCH ×4 (12:18→20:03)
[2018-12-18] MEDS: Venlafaxine XR (24 HR) 150 MG CAP.ER.24H PO SCH (12:18)
[2018-12-18] MEDS: Potassium Chloride 20 MEQ in D5% in Water 1,000 ML IVC SCH ×2 (12:24→23:45)
--- NOTE | 2018-12-18 12:51 | Internal Med Progress Note ---
Hospitalist Progress Note - Encounter Date of Encounter: 12/18/18 Time of Encounter: 10:45 - Subjective Interval History: Hospital course reviewed. Pt is currently alert but not able to provide any meaningful history due to encephalopathy. Was successfully extubated on 12/15 and has been maintaining his saturation well on room air since then. According to the ICU team, his mental status had also been improving. No fever overnight - Exam Vitals: Temp Pulse Resp BP Pulse Ox 97.1 F L 78 17 153/93 97 12/18/18 12:27 12/18/18 12:00 12/18/18 12:00 12/18/18 12:00 12/18/18 12:00 Exam: General: Alert but not oriented, not in distress Cardiovascular:Normal S1 & S2, No JVD. Pulse irregular. Lungs: Diminished overall but clear to auscultation, no wheezes/rales Abdomen:Soft, non-tender, no rigidity. Extremities:No deformity or swelling Neurological: Moving all 4 limbs spontaneously - Assessment and Plan (1) Acute encephalopathy Current Visit: Yes Status: Acute Assessment and Plan: Likely a combination of possible infarct with ?seizure, BZD + pregabalin, and mild hypernatremia was intubated due to airway protection and hypoxia, successfully extubated on 12/15 he is alert but not oriented today. Apparently he had significantly improved on his mental status since admission Will get speech eval to see if he can get PO meds/diet Discussed with Neurology, EEG showed bilateral PLEDs which could be related to underlying seizure activity considering his abnormal CT scans, would proceed with MRI to verify whether he has infarcts or not started on Valproic acid, continue wean precedex if able to follow with NEurology continue D5W for mild hypernatremia (2) Acute respiratory failure with hypoxia Current Visit: Yes Status: Resolved Assessment and Plan: Likely due to encephalopathy as above Extubated on 12/15, maintaining saturation well on room air Continue Pulmicort nebulizer (3) Acute on chronic renal failure Current Visit: Yes Status: Resolved Assessment and Plan: BUN/Cr improving with good UOP, continue to monitor avoid nephrotoxins (4) Hypernatremia Current Visit: Yes Status: Acute Assessment and Plan: Improving on D5 water, continue (5) Supratherapeutic INR Current Visit: Yes Status: Acute Assessment and Plan: Patient has been off Coumadin since presentation, INR 5.2 today however no signs and symptoms of bleeding, no need to urgently reverse daily INR (6) C. difficile colitis Current Visit: Yes Status: Acute Assessment and Plan: Was discharged on a course of oral vancomycin on 12/12 for speech eval today -> once cleared, would resume PO VAncomycin to finish the original course prescribed. Discussed with pharmacy (7) CAD (coronary artery disease) Current Visit: Yes Status: Chronic Assessment and Plan: rectal ASA until he is cleared from speech (8) DVT prophylaxis Current Visit: No Status: Acute Assessment and Plan: Supratherapeutic INR - Time Spent with Patient Total time spent is greater than 50% in coordination of care (as documented) at patient's floor/unit and/or counseling patient: Greater than 35 minutes Plan of Care Discussed with: nurse (Discussed with neurology) Internal Medicine: Result - Labs CBC & Chem 7: 12/18/18 09:58 12/18/18 09:58 Labs: Short CBC 12/18/18 Range/Units 09:58 WBC 10.3 (4.3-11.1) K/mcL Hgb 13.7 (12.9-16.9) g/dL Hct 42.3 (37.5-50.1) % Plt Count 236 (140-400) K/mcL Neutrophils # 7.9 (1.6-8.9) K/mcL BMP 12/18/18 09:58 Sodium 148 H Potassium 3.0 L Chloride 109 H Carbon Dioxide 24 BUN 48 H Creatinine 2.43 H Glucose 159 H Calcium 9.1 - ABG Interpretation ABG results: ABG ABG pH 7.37 pH Units (7.32-7.45) 12/15/18 05:11 ABG pCO2 36 mmHg (35-45) 12/15/18 05:11 ABG pO2 113 mmHg (85-104) H 12/15/18 05:11 ABG O2 Saturation 98 % (95-98) 12/15/18 05:11 PT/INR, D-dimer PT 58.9 Seconds (9.4-12.1) H* D 12/18/18 09:58 Consult Discharge Plan - Plan Referrals: [facility] [Primary Care Provider] - (3) Acute on chronic renal failure Qualifiers: Acute renal failure type: unspecified Chronic kidney disease stage: stage 4 (severe) Qualified Code(s): N17.9 - Acute kidney failure, unspecified; N18.4 - Chronic kidney disease, stage 4 (severe) (7) CAD (coronary artery disease) Qualifiers: Coronary Disease-Associated Artery/Lesion type: unspecified vessel or lesion type [place] vs. transplanted heart: unspecified whether [place] or transplanted heart Associated angina: angina presence unspecified Qualified Code(s): I25.10 - Atherosclerotic heart disease of [place] coronary artery without angina pectoris
--- NOTE | 2018-12-18 13:44 | Neurology Progress Note ---
<Xander Leon J - Last Filed: 12/18/18 13:41> Date of Encounter: 12/18/18 Time of Encounter: 13:41 Assessment and Plan (1) Encephalopathy Current Visit: No Status: Resolved Patient has improved overnight and is alert and conversational today and able to follow simple commands. However, he remains somewhat altered and requires frequent redirection. EEG obtained yesterday showing b/l PLEDS; given recent anoxic event and CT imaging showing acute vs subacute infarcts there is concerns that he may have been having underlying seizure activity. Depacon was satted yesterday and seizure precuations implemented. C/w seizure precautions and depacon, change to oral when appropriate. C/W ASA, and Plavix tx, c/w Coumadin per PT dosing. With improving mental state we recommend getting an MRI of the brain today to further evaluate ischemia identified on CT imaging. Neurology will continue to follow. Subjective Principal diagnosis: Encephalopathy Interval history: Patient seen and examined at the bedside in follow-up for encephalopathy. Today he is awake and minimally conversational; he is able to answer basic yes or no questions. This is an improvement in condition in comparison to yesterday. No family present to discuss POC Objective - Constitutional Vitals: Temp Pulse Resp BP Pulse Ox 97.1 F L 78 17 153/93 97 12/18/18 12:27 12/18/18 12:00 12/18/18 12:00 12/18/18 12:00 12/18/18 12:00 Exam: Examination: General Examination: *CONSTITUTIONAL: Alert to self only. no acute distress *GENERAL APPEARANCE OF PATIENT ill appearing elderly male *EYES: pupils equal, round, reactive to light and accommodation, con junctiva clear without masses or ulcerations, fundi normal. *CARDIOVASCULAR no peripheral edema, distal temperature normal, dorsalis pedis pulses normal. 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 No abnormal movem ents, fasciculations or atrophy identified. Neurological: *ORIENTATION to person, but disoriended to situation, time and place *RECURRENT AND REMOTE MEMORY altered with continued altered mental state *ATTENTION AND CONCENTRATION are altered, confusion persists and capacity to focus is diminished *LANGUAGE FUNCTION no significant aphasia or dysarthia was noted. *FUND OF KNOWLEDGE unaware of current events, past history, vocabulary is limited with AMS *MENTAL attention span and concentration are abnormal; requires redirection d/t diminished attention span *CN II optic fundi were normal, no papilledema noted. *CN III,IV, PERRLA extraocular eye movements were full, no nystagmus and no ptosis noted. *CN V shows normal sensation and jaw opens symmetrically. *CN VII shows normal facial movement symmetrically, upper and lower bilaterally. *CN VIII shows no significant hearing loss on exam *CN XI normal strength in the sternocleidomastoid muscles *SENSORY EXAMINATION light touch intact *REFLEXES: deep tendon reflexes were normal and symmetrical , grade 1/4 diffusely, no pathological reflexes were noted. *CEREBELLAR TESTING not participatory *PAIN LEVEL 0/10 Results - Laboratory Findings CBC and BMP: 12/18/18 09:58 12/18/18 09:58 Abnormal lab findings: Abnormal lab results WBC 12.8 K/mcL (4.3-11.1) H 12/14/18 10:34 RBC 4.10 M/mcL (4.19-5.50) L 12/16/18 04:17 Hgb 12.3 g/dL (12.9-16.9) L 12/16/18 04:17 Hct 35.1 % (37.5-50.1) L 12/15/18 04:46 MCHC 31.2 g/dL (31.6-35.5) L 12/14/18 10:34 RDW 14.6 % (11.5-14.5) H 12/17/18 04:56 9.1 K/mcL (1.6-8.9) H 12/17/18 04:56 PT 58.9 Seconds (9.4-12.1) H* D 12/18/18 09:58 INR 5.2 H* D 12/18/18 09:58 ABG pH 7.31 pH Units (7.32-7.45) L 12/14/18 12:02 ABG pO2 113 mmHg (85-104) H 12/15/18 05:11 ABG HCO3 19 mEq/L (21-27) L 12/14/18 12:02 ABG Total CO2 19 mEq/L (20-26) L 12/13/18 17:03 ABG O2 Saturation 99 % (95-98) H 12/14/18 12:02 ABG Base Excess -4 mEq/L (-2 to 3) L 12/15/18 05:11 Sodium 148 mEq/L (136-145) H 12/18/18 09:58 Potassium 3.0 mEq/L (3.5-5.1) L 12/18/18 09:58 Chloride 109 mEq/L (98-107) H 12/18/18 09:58 Carbon Dioxide 21 mEq/L (23-29) L 12/17/18 04:56 BUN 48 mg/dL (8-23) H 12/18/18 09:58 2.43 mg/dL (0.70-1.30) H 12/18/18 09:58 Est GFR ( Amer) 32 (> 60) L 12/18/18 09:58 Est GFR (Non-Af Amer) 26 (> 60) L 12/18/18 09:58 Glucose 159 mg/dL (70-105) H 12/18/18 09:58 POC Glucose 115 mg/dL (70-99) H 12/18/18 11:52 322 (280-300) H 12/18/18 09:58 Calcium 8.1 mg/dL (8.6-10.3) L 12/15/18 04:46 Phosphorus 6.1 mg/dL (2.7-4.5) H 12/13/18 18:01 Magnesium 1.5 mg/dL (1.6-2.6) L 12/13/18 18:01 0.04 ng/mL (< 0.04) H* 12/13/18 18:01 5.7 g/dL (6.4-8.9) L 12/13/18 18:01 3.4 g/dL (3.5-5.7) L 12/13/18 18:01 2.3 g/dL (2.4-3.5) L 12/13/18 18:01 Salicylates < 2.5 mg/dL (15.0-30.0) L 12/13/18 18:01 Acetaminophen < 10 mcg/mL (10-20) L 12/13/18 18:01 Consult Discharge Plan - Plan [facility]errals: [facility]Primary Care Provider[facility] - <Benja Adhikari I - Last Filed: 12/18/18 15:40> Date of Encounter: 12/18/18 Assessment and Plan (1) Encephalopathy Current Visit: No Status: Resolved I have personally performed a face to face diagnostic evaluation, including HP I, EXAM, which is included in the Assesment and plan, which was discussed with Xander Leon CNP, I agree with the above outlined documentation. Clinically seems to be doing better than yesterday suggest to continue on IV Depakote MRI of the brain as there was significant white matter changes on CT scan and considering abnormal EEG he could have a significant underlying abnormality perhaps infarct or maybe mass effect Benja Adhikari MD. NeurologyI Objective - Constitutional Vitals: Temp Pulse Resp BP Pulse Ox 97.1 F L 90 21 154/90 100 12/18/18 12:27 12/18/18 14:00 12/18/18 14:00 12/18/18 14:00 12/18/18 14:00 Results - Laboratory Findings CBC and BMP: 12/18/18 09:58 12/18/18 09:58 Abnormal lab findings: Abnormal lab results WBC 12.8 K/mcL (4.3-11.1) H 12/14/18 10:34 RBC 4.10 M/mcL (4.19-5.50) L 12/16/18 04:17 Hgb 12.3 g/dL (12.9-16.9) L 12/16/18 04:17 Hct 35.1 % (37.5-50.1) L 12/15/18 04:46 MCHC 31.2 g/dL (31.6-35.5) L 12/14/18 10:34 RDW 14.6 % (11.5-14.5) H 12/17/18 04:56 9.1 K/mcL (1.6-8.9) H 12/17/18 04:56 PT 58.9 Seconds (9.4-12.1) H* D 12/18/18 09:58 INR 5.2 H* D 12/18/18 09:58 ABG pH 7.31 pH Units (7.32-7.45) L 12/14/18 12:02 ABG pO2 113 mmHg (85-104) H 12/15/18 05:11 ABG HCO3 19 mEq/L (21-27) L 12/14/18 12:02 ABG Total CO2 19 mEq/L (20-26) L 12/13/18 17:03 ABG O2 Saturation 99 % (95-98) H 12/14/18 12:02 ABG Base Excess -4 mEq/L (-2 to 3) L 12/15/18 05:11 Sodium 148 mEq/L (136-145) H 12/18/18 09:58 Potassium 3.0 mEq/L (3.5-5.1) L 12/18/18 09:58 Chloride 109 mEq/L (98-107) H 12/18/18 09:58 Carbon Dioxide 21 mEq/L (23-29) L 12/17/18 04:56 BUN 48 mg/dL (8-23) H 12/18/18 09:58 2.43 mg/dL (0.70-1.30) H 12/18/18 09:58 Est GFR ( Amer) 32 (> 60) L 12/18/18 09:58 Est GFR (Non-Af Amer) 26 (> 60) L 12/18/18 09:58 Glucose 159 mg/dL (70-105) H 12/18/18 09:58 POC Glucose 115 mg/dL (70-99) H 12/18/18 11:52 322 (280-300) H 12/18/18 09:58 Calcium 8.1 mg/dL (8.6-10.3) L 12/15/18 04:46 Phosphorus 6.1 mg/dL (2.7-4.5) H 12/13/18 18:01 Magnesium 1.5 mg/dL (1.6-2.6) L 12/13/18 18:01 0.04 ng/mL (< 0.04) H* 12/13/18 18:01 5.7 g/dL (6.4-8.9) L 12/13/18 18:01 3.4 g/dL (3.5-5.7) L 12/13/18 18:01 2.3 g/dL (2.4-3.5) L 12/13/18 18:01 Salicylates < 2.5 mg/dL (15.0-30.0) L 12/13/18 18:01 Acetaminophen < 10 mcg/mL (10-20) L 12/13/18 18:01
[2018-12-19] MEDS: Insulin LISPRO 300 UNITS/3 ML VIAL SQ SCH ×4 (00:38→18:48)
[2018-12-19] MEDS: Dexmedetomidine HCl 400 MCG/100 ML MLS IVC SCH ×3 (00:42→23:40)
[2018-12-19] MEDS: Valproic Acid INJ 500 MG in 0.9 % Sodium Chloride 100 ML IVPB SCH ×4 (01:43→21:00)
[2018-12-19] MEDS: Ipratropium/Albuterol Neb 3 ML IH SCH ×5 (04:26→20:10)
[2018-12-19 07:06] LABS: Basophils % 0.3 %; Eosinophils # 0.1 K/mcL (0.0-0.6); Eosinophils % 1.2 %; Hematocrit 38.6 % (37.5-50.1); Hemoglobin 12.6 g/dL (12.9-16.9); Immature Granulocytes % 0.7 % (0-4); Lymphocytes # 1.1 K/mcL (0.6-4.6); Lymphocytes % 10.4 %; Mean Corpuscular HGB Conc 32.6 g/dL (31.6-35.5); Mean Corpuscular Volume 91.9 fL (83.0-100.0); Mean Platelet Volume 11.6 fL (9.4-12.4); Monocytes # 0.7 K/mcL (0.0-1.3); Monocytes % 6.3 %; Neutrophils # 8.8 K/mcL (1.6-8.9); Platelet Count 188 K/mcL (140-400); Segmented Neutrophils % 81.1 %
[2018-12-19 07:27] LABS: Calcium 8.7 mg/dL (8.6-10.3); Potassium 3.4 mEq/L (3.5-5.1)
[2018-12-19] MEDS: Budesonide Neb 0.5 MG/2 ML IH SCH ×2 (07:39→20:10)
[2018-12-19 07:48] LABS: Prothrombin Time 71.7 Seconds (9.4-12.1)
[2018-12-19 07:49] LABS: INR 6.4
[2018-12-19] MEDS ORDERED: Potassium Chloride 40 MEQ, Lidocaine 1% 2 ML in D5% in Water 500 ML IVPB ONE (08:49)
[2018-12-19] MEDS: Vancomycin Oral Soln 125 MG/2.5 ML UDC PO SCH ×4 (08:52→21:00)
[2018-12-19] MEDS: Venlafaxine XR (24 HR) 150 MG CAP.ER.24H PO SCH (08:52)
[2018-12-19] MEDS: D5% in 0.45% NACL w KCl 20 MEQ/1,000 ML MLS IVC SCH (09:08)
[2018-12-19] MEDS: Famotidine 20 MG/2 ML VIAL IVP SCH (09:09)
--- NOTE | 2018-12-19 12:16 | Neurology Progress Note ---
<Xander Leon - Last Filed: 12/19/18 12:14> Date of Encounter: 12/19/18 Time of Encounter: 12:15 Assessment and Plan (1) Encephalopathy Current Visit: No Status: Resolved Clinically he appears to have improved overnight. The confusion persists but he is conversational. The neuro exam does not illicit any new neurological deficits. MRI of the brain completed yesterday did not identify any acute intracranial abnormalities. There is diffuse parenchymal volume loss with mild chronic white matter microvascular ischemic changes. 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 C/w IV depakote for now and change to PO dosing when appropriate. When able to take oral Depakote we suggest starting Depakote 500mg BID. Neurology will follow peripherally, please call should any further need arise. Subjective Principal diagnosis: Encephalopathy Interval history: Patient seen and examined at the bedside in follow-up for encephalopathy. Today he is awake and conversational however, he is unaware that he is in the hospital and his confusion persists. No new deficits found on exam today. No family present to discuss POC Objective - Constitutional Vitals: Temp Pulse Resp BP Pulse Ox 96.7 F L 86 16 132/71 94 12/19/18 10:51 12/19/18 10:00 12/19/18 11:47 12/19/18 10:00 12/19/18 11:47 Exam: Examination: General Examination: *CONSTITUTIONAL: Alert to self and confused. No acute distress, cooperative with exam today *GENERAL APPEARANCE OF PATIENT ill appearing elderly male *EYES: pupils equal, round, reactive to light and accommodation, conjunctiva clear without masses or ulcerations, fundi normal. *CARDIOVASCULAR no peripheral edema, distal temperature normal, dorsalis pedis pulses normal. 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 No abnormal movements, fasciculations or atrophy identified. Neurological: *ORIENTATION to person, but disoriended to situation, time and place *RECURRENT AND REMOTE MEMORY altered with continued altered mental state *ATTENTION AND CONCENTRATION are altered, confusion persists and capacity to focus is diminished but ultimately has improved compared to yesterdays assessment *LANGUAGE FUNCTION no significant aphasia or dysarthia was noted. *FUND OF KNOWLEDGE unaware of current events, past history, vocabulary is limited with AMS *MENTAL attention span and concentration are abnormal; requires redirection d/t diminished attention span *CN II optic fundi were normal, no papilledema noted. *CN III,IV, PERRLA extraocular eye movements were full, no nystagmus and no ptosis noted. *CN V shows normal sensation and jaw opens symmetrically. *CN VII shows normal facial movement symmetrically, upper and lower bilaterally. *CN VIII shows no significant hearing loss on exam *CN XI normal strength in the sternocleidomastoid muscles *SENSORY EXAMINATION light touch intact *REFLEXES: deep tendon reflexes were normal and symmetrical , grade 2/4 diffusely, no pathological reflexes were noted. *CEREBELLAR TESTING not participatory *PAIN LEVEL 0/10 Results - Laboratory Findings CBC and BMP: 12/19/18 06:54 12/19/18 06:54 Abnormal lab findings: Abnormal lab results WBC 12.8 K/mcL (4.3-11.1) H 12/14/18 10:34 RBC 4.10 M/mcL (4.19-5.50) L 12/16/18 04:17 Hgb 12.6 g/dL (12.9-16.9) L 12/19/18 06:54 Hct 35.1 % (37.5-50.1) L 12/15/18 04:46 MCHC 31.2 g/dL (31.6-35.5) L 12/14/18 10:34 RDW 14.6 % (11.5-14.5) H 12/17/18 04:56 9.1 K/mcL (1.6-8.9) H 12/17/18 04:56 PT 71.7 Seconds (9.4-12.1) H* 12/19/18 06:54 INR 6.4 H* 12/19/18 06:54 ABG pH 7.31 pH Units (7.32-7.45) L 12/14/18 12:02 ABG pO2 113 mmHg (85-104) H 12/15/18 05:11 ABG HCO3 19 mEq/L (21-27) L 12/14/18 12:02 ABG Total CO2 19 mEq/L (20-26) L 12/13/18 17:03 ABG O2 Saturation 99 % (95-98) H 12/14/18 12:02 ABG Base Excess -4 mEq/L (-2 to 3) L 12/15/18 05:11 Sodium 148 mEq/L (136-145) H 12/18/18 09:58 Potassium 3.4 mEq/L (3.5-5.1) L 12/19/18 06:54 Chloride 109 mEq/L (98-107) H 12/18/18 09:58 Carbon Dioxide 22 mEq/L (23-29) L 12/19/18 06:54 BUN 37 mg/dL (8-23) H 12/19/18 06:54 2.14 mg/dL (0.70-1.30) H 12/19/18 06:54 Est GFR ( Amer) 37 (> 60) L 12/19/18 06:54 Est GFR (Non-Af Amer) 30 (> 60) L 12/19/18 06:54 Glucose 196 mg/dL (70-105) H 12/19/18 06:54 POC Glucose 198 mg/dL (70-99) H 12/19/18 10:53 312 (280-300) H 12/19/18 06:54 Calcium 8.1 mg/dL (8.6-10.3) L 12/15/18 04:46 Phosphorus 6.1 mg/dL (2.7-4.5) H 12/13/18 18:01 Magnesium 1.5 mg/dL (1.6-2.6) L 12/13/18 18:01 0.04 ng/mL (< 0.04) H* 12/13/18 18:01 5.7 g/dL (6.4-8.9) L 12/13/18 18:01 3.4 g/dL (3.5-5.7) L 12/13/18 18:01 2.3 g/dL (2.4-3.5) L 12/13/18 18:01 Salicylates < 2.5 mg/dL (15.0-30.0) L 12/13/18 18:01 Acetaminophen < 10 mcg/mL (10-20) L 12/13/18 18:01 Consult Discharge Plan - Plan [facility]errals: [facility] [Primary Care Provider] - <Benja Adhikari I - Last Filed: 12/23/18 13:03> Date of Encounter: 12/19/18 Assessment and Plan (1) Encephalopathy Current Visit: No Status: Resolved I have personally performed a face to face diagnostic evaluation, including HPI, EXAM, which is included in the Assesment and plan, which was discussed with Xander Leon CNP, I agree with the above outlined documentation. I have personally performed a face to face diagnostic evaluation, including HPI, EXAM, which is included in the Assesment and plan, which was discussed with Xander Leon CNP, I agree with the above outlined documentation. Clinically seems to be doing better than yesterday suggest to continue on IV Depakote MRI of the brain has been negative, suggest to continue on Depakote. Benja Adhikari MD. Neurology Objective - Constitutional Vitals: Temp Pulse Resp BP Pulse Ox 96.7 F L 90 14 139/71 93 12/19/18 10:51 12/19/18 12:00 12/19/18 12:00 12/19/18 12:00 12/19/18 12:00 Results - Laboratory Findings CBC and BMP: 12/23/18 08:16 12/23/18 08:16 Abnormal lab findings: Abnormal lab results WBC 12.8 K/mcL (4.3-11.1) H 12/14/18 10:34 RBC 4.10 M/mcL (4.19-5.50) L 12/16/18 04:17 Hgb 12.6 g/dL (12.9-16.9) L 12/19/18 06:54 Hct 35.1 % (37.5-50.1) L 12/15/18 04:46 MCHC 31.2 g/dL (31.6-35.5) L 12/14/18 10:34 RDW 14.6 % (11.5-14.5) H 12/17/18 04:56 9.1 K/mcL (1.6-8.9) H 12/17/18 04:56 PT 71.7 Seconds (9.4-12.1) H* 12/19/18 06:54 INR 6.4 H* 12/19/18 06:54 ABG pH 7.31 pH Units (7.32-7.45) L 12/14/18 12:02 ABG pO2 113 mmHg (85-104) H 12/15/18 05:11 ABG HCO3 19 mEq/L (21-27) L 12/14/18 12:02 ABG Total CO2 19 mEq/L (20-26) L 12/13/18 17:03 ABG O2 Saturation 99 % (95-98) H 12/14/18 12:02 ABG Base Excess -4 mEq/L (-2 to 3) L 12/15/18 05:11 Sodium 148 mEq/L (136-145) H 12/18/18 09:58 Potassium 3.4 mEq/L (3.5-5.1) L 12/19/18 06:54 Chloride 109 mEq/L (98-107) H 12/18/18 09:58 Carbon Dioxide 22 mEq/L (23-29) L 12/19/18 06:54 BUN 37 mg/dL (8-23) H 12/19/18 06:54 2.14 mg/dL (0.70-1.30) H 12/19/18 06:54 Est GFR ( Amer) 37 (> 60) L 12/19/18 06:54 Est GFR (Non-Af Amer) 30 (> 60) L 12/19/18 06:54 Glucose 196 mg/dL (70-105) H 12/19/18 06:54 POC Glucose 198 mg/dL (70-99) H 12/19/18 10:53 312 (280-300) H 12/19/18 06:54 Calcium 8.1 mg/dL (8.6-10.3) L 12/15/18 04:46 Phosphorus 6.1 mg/dL (2.7-4.5) H 12/13/18 18:01 Magnesium 1.5 mg/dL (1.6-2.6) L 12/13/18 18:01 0.04 ng/mL (< 0.04) H* 12/13/18 18:01 5.7 g/dL (6.4-8.9) L 12/13/18 18:01 3.4 g/dL (3.5-5.7) L 12/13/18 18:01 2.3 g/dL (2.4-3.5) L 12/13/18 18:01 Salicylates < 2.5 mg/dL (15.0-30.0) L 12/13/18 18:01 Acetaminophen < 10 mcg/mL (10-20) L 12/13/18 18:01
--- NOTE | 2018-12-19 13:09 | Internal Med Progress Note ---
Hospitalist Progress Note - Encounter Date of Encounter: 12/19/18 Time of Encounter: 10:00 - Subjective Interval History: No significant changes since yesterday. He remains alert but not able to provide any meaningful history. However patient is able to follow simple commands - Exam Vitals: Temp Pulse Resp BP Pulse Ox 96.7 F L 90 14 139/71 93 12/19/18 10:51 12/19/18 12:00 12/19/18 12:00 12/19/18 12:00 12/19/18 12:00 Exam: General: Alert but not oriented, not in distress Cardiovascular:Normal S1 & S2, No JVD. Pulse irregular. Lungs: Diminished overall but clear to auscultation, no wheezes/rales Abdomen:Soft, non-tender, no rigidity. Extremities:No deformity or swelling Neurological: Moving all 4 limbs spontaneously - Assessment and Plan (1) Acute encephalopathy Current Visit: Yes Status: Acute Assessment and Plan: Likely a combination of ?seizure, BZD + pregabalin, and mild hypernatremia was intubated initially due to airway protection and hypoxia, successfully extubated on 12/15 initially thought to have subtle infarct on CT but MRI done yesterday did not show any evidence of it he is alert but continues to remain disoriented, I again verified with the RN who admitted the patient this time that his mentation had definitely improved since presentation continue to follow with speech nasrin to see if he can get PO meds/diet reviewed his previous hospitalization from 11/26-12/12, appears that it took him awhile to recover from encephalopathy and he had been without enteral nutrition for the last few days. Unable to place NG would speak to pt's regarding placement of PEG, was unable to reach her early this morning EEG showed bilateral PLEDs which could be related to underlying seizure activity, continue valproic acid wean precedex if able to follow with Neurology hypernatremia corrected on D5W (2) Acute respiratory failure with hypoxia Current Visit: Yes Status: Resolved Assessment and Plan: Likely due to encephalopathy as above Extubated on 12/15, maintaining saturation well on room air Continue Pulmicort nebulizer (3) Acute on chronic renal failure Current Visit: Yes Status: Resolved Assessment and Plan: BUN/Cr improving with good UOP, continue to monitor avoid nephrotoxins (4) Supratherapeutic INR Current Visit: Yes Status: Acute Assessment and Plan: Patient has been off Coumadin since presentation, INR 5.2 - 6.4 today although pt has no signs and symptoms of bleeding, he may need to have PEG tube insertion pending discussion with his as well as his clinical course would give 1 dose of Vit K 2.5mg today daily INR (5) Hypernatremia Current Visit: Yes Status: Resolved Assessment and Plan: Resolved with D5 water (6) C. difficile colitis Current Visit: Yes Status: Acute Assessment and Plan: Was discharged on a course of oral vancomycin on 12/12 for ongoing speech eval -> once cleared, would resume PO Vancomycin to finish original course prescribed. No significiant stool output nor leukocytosis noted (7) CAD (coronary artery disease) Current Visit: Yes Status: Chronic Assessment and Plan: rectal ASA until he is cleared from speech (8) DVT prophylaxis Current Visit: No Status: Acute Assessment and Plan: Supratherapeutic INR - Time Spent with Patient Total time spent is greater than 50% in coordination of care (as documented) at patient's floor/unit and/or counseling patient: 25 - 35 minutes Plan of Care Discussed with: nurse Internal Medicine: Result - Labs CBC & Chem 7: 12/19/18 06:54 12/19/18 06:54 Labs: Short CBC 12/19/18 Range/Units 06:54 WBC 10.8 (4.3-11.1) K/mcL Hgb 12.6 L (12.9-16.9) g/dL Hct 38.6 (37.5-50.1) % Plt Count 188 (140-400) K/mcL Neutrophils # 8.8 (1.6-8.9) K/mcL BMP 12/19/18 06:54 Sodium 144 Potassium 3.4 L Chloride 107 Carbon Dioxide 22 L BUN 37 H Creatinine 2.14 H Glucose 196 H Calcium 8.7 - ABG Interpretation ABG results: ABG ABG pH 7.37 pH Units (7.32-7.45) 12/15/18 05:11 ABG pCO2 36 mmHg (35-45) 12/15/18 05:11 ABG pO2 113 mmHg (85-104) H 12/15/18 05:11 ABG O2 Saturation 98 % (95-98) 12/15/18 05:11 PT/INR, D-dimer PT 71.7 Seconds (9.4-12.1) H* 12/19/18 06:54 - Impressions Impressions Brain MRI 12/18/18 16:16 IMPRESSION: 1. No acute intracranial abnormality. 2. Diffuse parenchymal volume loss with mild chronic white matter microvascular ischemic changes. 3. Remote lacunar infarcts in the right basal ganglia, left thalamus, and right zainab. D/ / Rashel Menard / Rashel Menard Interpreting Provider: Rashel Menard Consult Discharge Plan - Plan [facility]errals: [facility] [Primary Care Provider] - (3) Acute on chronic renal failure Qualifiers: Acute renal failure type: unspecified Chronic kidney disease stage: stage 4 ( severe) Qualified Code(s): N17.9 - Acute kidney failure, unspecified; N18.4 - Chronic kidney disease, stage 4 (severe) (7) CAD (coronary artery disease) Qualifiers: Coronary Disease-Associated Artery/Lesion type: unspecified vessel or lesion t ype [place] vs. transplanted heart: unspecified whether [place] or transplanted heart Associated angina: angina presence unspecified Qualified Code(s): I25.10 - Atherosclerotic heart disease of [place] coronary artery without angina pectoris
[2018-12-20] MEDS: Ipratropium/Albuterol Neb 3 ML IH SCH ×7 (00:11→23:26)
[2018-12-20] MEDS: Insulin LISPRO 300 UNITS/3 ML VIAL SQ SCH ×4 (00:13→18:15)
[2018-12-20] MEDS: *HR* LORazepam 2 MG/ML VIAL IVP PRN (00:56)
[2018-12-20] MEDS: D5% in 0.45% NACL w KCl 20 MEQ/1,000 ML MLS IVC SCH ×2 (01:03→17:01)
[2018-12-20] MEDS: Valproic Acid INJ 500 MG in 0.9 % Sodium Chloride 100 ML IVPB SCH ×3 (03:53→19:40)
[2018-12-20 05:38] LABS: Basophils % 0.2 %; Eosinophils # 0.1 K/mcL (0.0-0.6); Eosinophils % 0.9 %; Hematocrit 37.2 % (37.5-50.1); Hemoglobin 12.1 g/dL (12.9-16.9); Immature Granulocytes % 0.7 % (0-4); Lymphocytes # 0.6 K/mcL (0.6-4.6); Lymphocytes % 7.2 %; Mean Corpuscular HGB Conc 32.5 g/dL (31.6-35.5); Mean Corpuscular Hemoglobin 29.8 pg (28.0-33.3); Mean Corpuscular Volume 91.6 fL (83.0-100.0); Monocytes # 0.6 K/mcL (0.0-1.3); Monocytes % 6.5 %; Neutrophils # 7.3 K/mcL (1.6-8.9); Platelet Count 151 K/mcL (140-400); Red Blood Count 4.06 M/mcL (4.19-5.50); Red Cell Distribution Width 13.8 % (11.5-14.5); Segmented Neutrophils % 84.5 %
[2018-12-20 05:48] LABS: INR 1.2; Prothrombin Time 13.7 Seconds (9.4-12.1)
[2018-12-20 05:49] LABS: Calcium 8.6 mg/dL (8.6-10.3); Magnesium 1.5 mg/dL (1.6-2.6); Potassium 3.8 mEq/L (3.5-5.1)
[2018-12-20] MEDS: Dexmedetomidine HCl 400 MCG/100 ML MLS IVC SCH ×2 (06:25→14:13)
[2018-12-20] MEDS: Venlafaxine XR (24 HR) 150 MG CAP.ER.24H PO SCH (07:36)
[2018-12-20] MEDS: Vancomycin Oral Soln 125 MG/2.5 ML UDC PO SCH ×4 (07:36→20:50)
[2018-12-20] MEDS: Famotidine 20 MG/2 ML VIAL IVP SCH (07:36)
--- NOTE | 2018-12-20 10:20 | AcuteCare Surgery Consult Note ---
Date of Encounter: 12/20/18 Time of Encounter: 10:10 Assessment and Plan (1) Aspiration into airway Current Visit: Yes Status: Acute The patient has encephalopathy and failed a barium swallow with aspiration. He now presents for percutaneous endoscopic gastrostomy tube at the request of his for nutritional support Qualifiers: Encounter type: initial encounter Qualified Code(s): T17.908A - Unspecified foreign body in respiratory tract, part unspecified causing other injury, initial encounter (2) Malnutrition, calorie Current Visit: Yes Status: Acute The patient has encephalopathy and failed a barium swallow with aspiration. He now presents for percutaneous endoscopic gastrostomy tube at the request of his for nutritional support History of Present Illness Consult date: 12/20/18 Reason for consult: other (Malnutrition) History of present illness: Acute care surgery is consulted at the request the patient's for percutaneous endoscopic gastrostomy tube placement for nutritional support. The patient is having seizure activity and encephalopathy. He is not responsive to my questions. The patient is disoriented and will require protection of the percutaneous endoscopic gastrostomy tube to prevent dislodgment. I discussed the risks and benefits with the the patient's power of staff attorney. They underst and that there is a risk of dislodgment that could be a risk patient's life. We will take precautions to try and prevent this from happening. I agree that the patient would benefit from PEG tube placement. Recent video esophagram is remarkable for aspiration. There was some suggestion of abnormality in the distal esophagus on previous CAT scan studies that I was unable to identify an area of abnormality on the most recent CAT scan of the abdomen Past Med Surg Social Fam HX - Past Medical History Medical history: atrial fibrillation, CHF, coronary artery disease, diabetes, hypertension, TIA, other (MRSA, chronic back pain, abdominal aortic aneurysm) Additional medical history: MRSA, back pain, AAA Psychiatric history: anxiety - Past Surgical History Additional surgical history: unknown - Social History Smoking Status: Former smoker Smokeless Tobacco Status: No Alcohol use: none Drug use: none Medications and Allergies Albuterol Neb [Proventil Neb] 2.5 mg IH Q6HR PRN 11/27/18 [History] Albuterol Sulfate [Proair Hfa] 2 puff IH Q6H PRN 11/27/18 [History] Atorvastatin Calcium [Lipitor] 40 mg PO HS 11/27/18 [History] BuPROPion XL (24 HR) [Wellbutrin Xl] 150 mg PO DAILY 11/27/18 [History] Carboxymethylcellulose Sodium [Refresh Liquigel] 1 applic BOTH EYES QID 11/27/18 [History] Cholecalciferol (D-3) [Vitamin D] 1,000 unit PO DAILY 11/27/18 [History] Clopidogrel [Plavix] 75 mg PO DAILY 11/27/18 [History] Ketotifen Fumarate [Zaditor] 1 drop BOTH EYES BID 11/27/18 [History] Metoprolol Succinate [Toprol Xl] 12.5 mg PO DAILY 11/27/18 [History] Tamsulosin [Flomax] 0.4 mg PO DAILY 11/27/18 [History] Venlafaxine XR (24 HR) [Effexor Xr] 300 mg PO DAILY 11/27/18 [History] Budesonide/Formoterol 160/4.5 [Symbicort 160/4.5] 2 puff IH BIDR #1 inh 12/10/18 [Rx] Pregabalin [Lyrica] 50 mg PO BID capsule 12/10/18 [Rx] Vancomycin Oral Soln [Firvanq] 125 mg PO QID #33 udc 12/12/18 [Rx] Warfarin [Coumadin] 5 mg PO 1800 #30 tablet 12/12/18 [Rx] Allergy/AdvReac Type Severity Reaction Status Date / Time trazodone Allergy See Verified 12/31/17 13:52 Comments Review of Systems All systems PM: The remainder of the systems were reviewed and are negative General Surgery Exam Initial Vital Signs Temp Pulse Resp BP Pulse Ox 99.2 F 73 20 148/71 99 12/13/18 16:05 12/13/18 16:05 12/13/18 16:05 12/13/18 16:05 12/13/18 16:05 - General physical appearance chronically ill, other (Unresponsive and disoriented) - Neck no masses, no bruits, trachea midline, no lymphadectomy, no venous distension - Respiratory normal expansion, normal respiratory effort crackles: bilateral, wheezing: bilateral - Cardiovascular Cardiovascular exam: Present: RRR, distant heart sounds - Abdomen Abdomen general surgery: Present: bowel sounds present, soft, non tender - Neurologic Present: confused, disoriented, other (Restrained) - Psychiatric Psychiatric general surgery: Present: other (Disoriented and restrained in the intensive care unit) Exam Initial Vital Signs Temp Pulse Resp BP Pulse Ox 99.2 F 73 20 148/71 99 12/13/18 16:05 12/13/18 16:05 12/13/18 16:05 12/13/18 16:05 12/13/18 16:05 Results - Labs 12/20/18 05:07 12/20/18 05:07 Abnormal lab results WBC 12.8 K/mcL (4.3-11.1) H 12/14/18 10:34 RBC 4.06 M/mcL (4.19-5.50) L 12/20/18 05:07 Hgb 12.1 g/dL (12.9-16.9) L 12/20/18 05:07 Hct 37.2 % (37.5-50.1) L 12/20/18 05:07 MCHC 31.2 g/dL (31.6-35.5) L 12/14/18 10:34 RDW 14.6 % (11.5-14.5) H 12/17/18 04:56 9.1 K/mcL (1.6-8.9) H 12/17/18 04:56 PT 13.7 Seconds (9.4-12.1) H D 12/20/18 05:07 INR 6.4 H* 12/19/18 06:54 ABG pH 7.31 pH Units (7.32-7.45) L 12/14/18 12:02 ABG pO2 113 mmHg (85-104) H 12/15/18 05:11 ABG HCO3 19 mEq/L (21-27) L 12/14/18 12:02 ABG Total CO2 19 mEq/L (20-26) L 12/13/18 17:03 ABG O2 Saturation 99 % (95-98) H 12/14/18 12:02 ABG Base Excess -4 mEq/L (-2 to 3) L 12/15/18 05:11 Sodium 148 mEq/L (136-145) H 12/18/18 09:58 Potassium 3.4 mEq/L (3.5-5.1) L 12/19/18 06:54 Chloride 110 mEq/L (98-107) H 12/20/18 05:07 Carbon Dioxide 22 mEq/L (23-29) L 12/20/18 05:07 BUN 27 mg/dL (8-23) H 12/20/18 05:07 1.92 mg/dL (0.70-1.30) H 12/20/18 05:07 Est GFR ( Amer) 41 (> 60) L 12/20/18 05:07 Est GFR (Non-Af Amer) 34 (> 60) L 12/20/18 05:07 Glucose 337 mg/dL (70-105) H 12/20/18 05:07 POC Glucose 303 mg/dL (70-99) H 12/20/18 05:43 312 (280-300) H 12/20/18 05:07 Calcium 8.1 mg/dL (8.6-10.3) L 12/15/18 04:46 Phosphorus 6.1 mg/dL (2.7-4.5) H 12/13/18 18:01 Magnesium 1.5 mg/dL (1.6-2.6) L 12/20/18 05:07 0.04 ng/mL (< 0.04) H* 12/13/18 18:01 5.7 g/dL (6.4-8.9) L 12/13/18 18:01 3.4 g/dL (3.5-5.7) L 12/13/18 18:01 2.3 g/dL (2.4-3.5) L 12/13/18 18:01 Salicylates < 2.5 mg/dL (15.0-30.0) L 12/13/18 18:01 Acetaminophen < 10 mcg/mL (10-20) L 12/13/18 18:01 Diabetes panel 12/20/18 Range/Units 05:07 Sodium 142 (136-145) mEq/L Potassium 3.8 (3.5-5.1) mEq/L Chloride 110 H (98-107) mEq/L Carbon Dioxide 22 L (23-29) mEq/L BUN 27 H (8-23) mg/dL Creatinine 1.92 H (0.70-1.30) mg/dL Glucose 337 H (70-105) mg/dL Calcium 8.6 (8.6-10.3) mg/dL Calcium panel 12/20/18 Range/Units 05:07 Calcium 8.6 (8.6-10.3) mg/dL Pituitary panel 12/20/18 Range/Units 05:07 Sodium 142 (136-145) mEq/L Potassium 3.8 (3.5-5.1) mEq/L Chloride 110 H (98-107) mEq/L Carbon Dioxide 22 L (23-29) mEq/L BUN 27 H (8-23) mg/dL Creatinine 1.92 H (0.70-1.30) mg/dL Glucose 337 H (70-105) mg/dL Calcium 8.6 (8.6-10.3) mg/dL Adrenal panel 12/20/18 Range/Units 05:07 Sodium 142 (136-145) mEq/L Potassium 3.8 (3.5-5.1) mEq/L Chloride 110 H (98-107) mEq/L Carbon Dioxide 22 L (23-29) mEq/L BUN 27 H (8-23) mg/dL Creatinine 1.92 H (0.70-1.30) mg/dL Glucose 337 H (70-105) mg/dL Calcium 8.6 (8.6-10.3) mg/dL All other labs normal. Consult Discharge Plan - Plan [facility]errals: [facility] [Primary Care Provider] -
[2018-12-20] MEDS: Budesonide Neb 0.5 MG/2 ML IH SCH ×2 (11:37→20:36)
--- NOTE | 2018-12-20 12:16 | Internal Med Progress Note ---
Hospitalist Progress Note - Encounter Date of Encounter: 12/20/18 Time of Encounter: 11:15 - Subjective Interval History: No acute events overnight but no significant improvement in his mental status is noted. Discussed at length with patient's yesterday who was agreeable for PEG tube placement given the anticipated prolonged recovery course (if he were to recover). No fever overnight or reported seizure-like activities - Exam Vitals: Temp Pulse Resp BP Pulse Ox 96.4 F L 75 18 128/85 100 12/20/18 11:42 12/20/18 10:00 12/20/18 10:00 12/20/18 10:00 12/20/18 10:00 Exam: General: Alert but not oriented, not in distress Cardiovascular:Normal S1 & S2, No JVD. Pulse irregular. Lungs: Diminished overall but clear to auscultation, no wheezes/rales Abdomen:Soft, non-tender, no rigidity. Extremities:No deformity or swelling Neurological: Moving all 4 limbs spontaneously - Assessment and Plan (1) Acute encephalopathy Current Visit: Yes Status: Acute Assessment and Plan: Likely a combination of ?seizure, BZD + pregabalin, and mild hypernatremia. Recently diagnosed with anoxic brain injury earlier this month with some degree of improvement was intubated initially due to airway protection and hypoxia, successfully extubated on 12/15 initially thought to have subtle infarct on CT but MRI did not show any evidence of it EEG showed bilateral PLEDs which could be related to underlying seizure activity, continue valproic acid he is alert but continues to remain disoriented. Anticipate prolonged recovery course (if at all possible) unable to tolerate PO diet discussed with pt's POA yesterday who was agreeable for PEG insertion. Spoke to surgery who agreed to see the pt in consultation please start tube feeding per nutrition note post-insertion wean precedex if able to follow with Neurology hypernatremia corrected on D5W (2) Acute respiratory failure with hypoxia Current Visit: Yes Status: Resolved Assessment and Plan: Likely due to encephalopathy as above Extubated on 12/15, maintaining saturation well on room air Continue Pulmicort nebulizer (3) Acute on chronic renal failure Current Visit: Yes Status: Resolved Assessment and Plan: BUN/Cr improving with good UOP, continue to monitor avoid nephrotoxins (4) Supratherapeutic INR Current Visit: Yes Status: Acute Assessment and Plan: Patient has been off Coumadin since presentation INR reversed yesterday due to the need for PEG tube insertion resume Coumadin post-insertion if ok with surgery daily INR (5) Hypernatremia Current Visit: Yes Status: Resolved Assessment and Plan: Resolved with D5 water (6) C. difficile colitis Current Visit: Yes Status: Acute Assessment and Plan: Was discharged on a course of oral vancomycin on 12/12 resume PO Vancomycin to finish the original course prescribed after the insertion of PEG tube (7) CAD (coronary artery disease) Current Visit: Yes Status: Chronic Assessment and Plan: rectal ASA until PEG tube inserted (8) DVT prophylaxis Current Visit: No Status: Acute Assessment and Plan: resume Coumadin post-operatively - Time Spent with Patient Total time spent is greater than 50% in coordination of care (as documented) at patient's floor/unit and/or counseling patient: 25 - 35 minutes Plan of Care Discussed with: patient (discussed with surgery) Internal Medicine: Result - Labs CBC & Chem 7: 12/20/18 05:07 12/20/18 05:07 Labs: Short CBC 12/20/18 Range/Units 05:07 WBC 8.7 (4.3-11.1) K/mcL Hgb 12.1 L (12.9-16.9) g/dL Hct 37.2 L (37.5-50.1) % Plt Count 151 (140-400) K/mcL Neutrophils # 7.3 (1.6-8.9) K/mcL BMP 12/20/18 05:07 Sodium 142 Potassium 3.8 Chloride 110 H Carbon Dioxide 22 L BUN 27 H Creatinine 1.92 H Glucose 337 H Calcium 8.6 - ABG Interpretation ABG results: ABG ABG pH 7.37 pH Units (7.32-7.45) 12/15/18 05:11 ABG pCO2 36 mmHg (35-45) 12/15/18 05:11 ABG pO2 113 mmHg (85-104) H 12/15/18 05:11 ABG O2 Saturation 98 % (95-98) 12/15/18 05:11 PT/INR, D-dimer PT 13.7 Seconds (9.4-12.1) H D 12/20/18 05:07 Consult Discharge Plan - Plan [facility]errals: [facility] [Primary Care Provider] - (3) Acute on chronic renal failure Qualifiers: Acute renal failure type: unspecified Chronic kidney disease stage: stage 4 (severe) Qualified Code(s): N17.9 - Acute kidney failure, unspecified; N18.4 - Chronic kidney disease, stage 4 (severe) (7) CAD (coronary artery disease) Qualifiers: Coronary Disease-Associated Artery/Lesion type: unspecified vessel or lesion type [place] vs. transplanted heart: unspecified whether enterprise or transplanted heart Associated angina: angina presence unspecified Qualified Code(s): I25.10 - Atherosclerotic heart disease of enterprise coronary artery without angina pectoris
--- NOTE | 2018-12-20 13:07 | Anesthesia Evaluation PreOp ---
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: TIA, Other (Encephalopathy) Other Medical History: Diabetes Type II Anesthesia History: No Prior Anesthetic Complications Alcohol Use: none Drug use: none Medications and Allergies Albuterol Neb [Proventil Neb] 2.5 mg IH Q6HR PRN 11/27/18 [History] Albuterol Sulfate [Proair Hfa] 2 puff IH Q6H PRN 11/27/18 [History] Atorvastatin Calcium [Lipitor] 40 mg PO HS 11/27/18 [History] BuPROPion XL (24 HR) [Wellbutrin Xl] 150 mg PO DAILY 11/27/18 [History] Carboxymethylcellulose Sodium [Refresh Liquigel] 1 applic BOTH EYES QID 11/27/18 [History] Cholecalciferol (D-3) [Vitamin D] 1,000 unit PO DAILY 11/27/18 [History] Clopidogrel [Plavix] 75 mg PO DAILY 11/27/18 [History] Ketotifen Fumarate [Zaditor] 1 drop BOTH EYES BID 11/27/18 [History] Metoprolol Succinate [Toprol Xl] 12.5 mg PO DAILY 11/27/18 [History] Tamsulosin [Flomax] 0.4 mg PO DAILY 11/27/18 [History] Venlafaxine XR (24 HR) [Effexor Xr] 300 mg PO DAILY 11/27/18 [History] Budesonide/Formoterol 160/4.5 [Symbicort 160/4.5] 2 puff IH BIDR #1 inh 12/10/18 [Rx] Pregabalin [Lyrica] 50 mg PO BID capsule 12/10/18 [Rx] Vancomycin Oral Soln [Firvanq] 125 mg PO QID #33 udc 12/12/18 [Rx] Warfarin [Coumadin] 5 mg PO 1800 #30 tablet 12/12/18 [Rx] Allergy/AdvReac Type Severity Reaction Status Date / Time trazodone Allergy See Verified 12/31/17 13:52 Comments - Meds/Allergy Pre-op Review Medications Reviewed: Yes Allergies Reviewed: Yes Beta Blockers on Current Med List: No Anesthesia Results - Labs 12/20/18 05:07 12/20/18 05:07 - Imaging EKG: report reviewed (AFib) Additional studies: ECHO 2019 EF 40%, bi-atrial enlargement, Anesthesia Exam Vital Signs/O2 Sat/Glucose, Most Current Temp Pulse Resp BP Pulse Ox 12/20/18 12:00 96.4 F L 84 18 126/85 99 12/20/18 11:42 96.4 F L 12/20/18 10:00 96.4 F L 75 18 128/85 97 Height: 6'1 Weight: 163 lbs NPO (# of Hours): since admission Pain Scale: 0 - HEENT Pupil (Motor): Pupils equal Mallampati: III Teeth: Edentulous Oral Opening: Greater than 3 - BLOOD BANK ASSISTANT LOC: Unable to assess (Encephalopathic) - Cardiac Rhythm: Irregular Murmur: None JVD: No Carotid Bruit: No - Pulmonary Breath Sounds: bilateral Clear Respiratory Effort: Symmetrical Anesthesia Assess/Plan ASA Score: 4 Level of consciousness: Tranquil Anesthetic Plan: MAC Autologous Blood: No Monitoring Plan: Standard Monitors Recovery Plan: ICU (Will proceed to do in ICU due to C-Diff/Encephalopathy)
[2018-12-20] MEDS ORDERED: ceFAZolin 1,000 MG in D5% in Water 100 ML IVPB ONE (14:45)
[2018-12-20] MEDS ORDERED: 0.9 % Sodium Chloride 500 ML ONE (14:50)
--- NOTE | 2018-12-20 15:30 | Anesthesia Evaluation Post Op ---
Date of Encounter: 12/20/18 Time of Encounter: 15:35 - Vital Signs Vital Signs: Vital Signs/O2 Sat/Glucose, Most Current Temp Pulse Resp BP Pulse Ox 12/20/18 14:00 96.4 F L 83 13 134/84 96 12/20/18 12:00 96.4 F L 84 18 126/85 99 12/20/18 11:42 96.4 F L - Lungs Lungs: Clear Ascult./Percussion - Airway Airway: Non-obstructed - Cardiovascular Baseline Rhythm - Mental Status Mental Status: Asleep with brisk response to light stimulation - Pain Pain Scale: 0 - Nausea Vomiting Nausea Vomiting: Not Present - Hydration Hydration: NPO - Discharge PostOp Status: Transfer Patient to floor (Patient in ICU)
[2018-12-21] MEDS: Insulin LISPRO 300 UNITS/3 ML VIAL SQ SCH ×4 (00:09→17:28)
[2018-12-21] MEDS: *HR* LORazepam 2 MG/ML VIAL IVP PRN ×2 (00:25→09:02)
[2018-12-21] MEDS: Dexmedetomidine HCl 400 MCG/100 ML MLS IVC SCH ×3 (02:00→16:22)
[2018-12-21] MEDS: Valproic Acid INJ 500 MG in 0.9 % Sodium Chloride 100 ML IVPB SCH ×2 (03:31→10:28)
[2018-12-21] MEDS: Ipratropium/Albuterol Neb 3 ML IH SCH ×5 (04:06→19:43)
[2018-12-21 05:55] LABS: Basophils % 0.3 %; Eosinophils # 0.1 K/mcL (0.0-0.6); Eosinophils % 0.7 %; Hematocrit 38.3 % (37.5-50.1); Hemoglobin 12.5 g/dL (12.9-16.9); Immature Granulocytes % 0.5 % (0-4); Lymphocytes # 0.7 K/mcL (0.6-4.6); Lymphocytes % 5.8 %; Mean Corpuscular HGB Conc 32.6 g/dL (31.6-35.5); Mean Corpuscular Hemoglobin 30.3 pg (28.0-33.3); Mean Platelet Volume 11.9 fL (9.4-12.4); Monocytes # 0.7 K/mcL (0.0-1.3); Monocytes % 6.2 %; Neutrophils # 9.9 K/mcL (1.6-8.9); Platelet Count 148 K/mcL (140-400); Red Blood Count 4.12 M/mcL (4.19-5.50); Red Cell Distribution Width 13.9 % (11.5-14.5); Segmented Neutrophils % 86.5 %
[2018-12-21 06:02] LABS: INR 1.2; Prothrombin Time 13.8 Seconds (9.4-12.1)
[2018-12-21 06:15] LABS: Calcium 8.5 mg/dL (8.6-10.3); Magnesium 1.7 mg/dL (1.6-2.6); Potassium 3.7 mEq/L (3.5-5.1)
[2018-12-21] MEDS: Venlafaxine XR (24 HR) 150 MG CAP.ER.24H PO SCH (07:53)
[2018-12-21] MEDS: Vancomycin Oral Soln 125 MG/2.5 ML UDC PO SCH ×4 (07:53→20:19)
[2018-12-21] MEDS: Budesonide Neb 0.5 MG/2 ML IH SCH ×2 (07:54→19:43)
--- NOTE | 2018-12-21 08:08 | AcuteCareSurgery Progress Note ---
<Carson Rucker N - Last Filed: 12/21/18 08:08> Date of Encounter: 12/21/18 Time of Encounter: 08:06 - Assessment and Plan (1) Aspiration into airway Current Visit: Yes Status: Acute Patient with encephalopathy and failed barium swallow exam with aspiration. PEG tube placed yesterday. PEG tube is in place and well seated. Medical team may begin unrestricted use of PEG tube for medications or tube feeds. Acute her surgery will sign off at this time, reconsult with any questions. Qualifiers: Encounter type: initial encounter Qualified Code(s): T17.908A - Unspecified foreign body in respiratory tract, part unspecified causing other injury, initial encounter Subjective Narrative: Patient seen and examined at bedside this morning with acute care surgery team. His PEG tube is well-seated with appropriate tension. He is still encephal opathic. Objective Vital Signs - Last 8 Hours Temp Pulse Resp BP Pulse Ox 12/21/18 07:54 20 99 12/21/18 07:01 87 18 150/80 97 12/21/18 06:00 99.1 F 82 12 144/80 97 12/21/18 05:03 98.5 F 97 14 158/98 97 12/21/18 04:00 98.9 F 97 12 147/94 97 12/21/18 03:00 132/84 12/21/18 02:27 99.6 F 93 12 153/90 100 Intake and Output 12/20/18 12/21/18 12/21/18 23:59 07:59 15:59 Intake Total 1185.3 / 2695.3 149.0 / 149.0 Output Total 700 / 1925 725 / 725 Balance 485.3 / 770.3 -576.0 / -576.0 Intake: IV Fluids 1185.3 / 2695.3 149.0 / 149.0 KCl 20mEq IN D5%-0.45 NACL 20 1000 / 2000 meq In 1,000 ml @ 60 mls/hr IVC .[id number] [facility] Rx#:[id number] PRECEDEX Premix 400 mcg In 100 80.3 / 280.3 44.0 / 44.0 ml @ 0.2 MCG/KG/HR 3.65 mls/hr IVC .Q24H [facility] Rx#:[id number] Depacon 500 MG In 0.9 % Sodium 105 / 315 105 / 105 Chloride 100 ML @ 100 mls/hr IVPB Q8H ON LICENSE OF [facility] Rx#:[id number] Oral 0 / 0 0 / 0 Output: Gastric Tube Lavage Amount 0 / 0 Mid Upper Abdomen 0 / 0 Catheter 700 / 1925 725 / 725 Other: Meal NPO Percent of Meal Consumed 0% Weight 58.3 kg Blood Glucose* 153 186 Patient Weight 12/21/18 23:59 Weight 58.3 kg - General physical appearance well developed, well nourished - Eyes PERRL, normal ocular movement - ENT normal pinna, normal nares - Neck Neck exam: trachea midline, no venous distension - Respiratory normal expansion, normal respiratory effort - Cardiovascular Cardiovascular exam: Present: RRR - Abdomen Abdomen: Present: soft Additional Comments: PEG tube in place, well-seated, appropriate tension - Labs 12/21/18 05:30 12/21/18 05:30 Diabetes panel 12/21/18 Range/Units 05:30 Sodium 145 (136-145) mEq/L Potassium 3.7 (3.5-5.1) mEq/L Chloride 110 H (98-107) mEq/L Carbon Dioxide 24 (23-29) mEq/L BUN 22 (8-23) mg/dL Creatinine 1.87 H (0.70-1.30) mg/dL Glucose 222 H (70-105) mg/dL Calcium 8.5 L (8.6-10.3) mg/dL Calcium panel 12/21/18 Range/Units 05:30 Calcium 8.5 L (8.6-10.3) mg/dL Pituitary panel 12/21/18 Range/Units 05:30 Sodium 145 (136-145) mEq/L Potassium 3.7 (3.5-5.1) mEq/L Chloride 110 H (98-107) mEq/L Carbon Dioxide 24 (23-29) mEq/L BUN 22 (8-23) mg/dL Creatinine 1.87 H (0.70-1.30) mg/dL Glucose 222 H (70-105) mg/dL Calcium 8.5 L (8.6-10.3) mg/dL Adrenal panel 12/21/18 Range/Units 05:30 Sodium 145 (136-145) mEq/L Potassium 3.7 (3.5-5.1) mEq/L Chloride 110 H (98-107) mEq/L Carbon Dioxide 24 (23-29) mEq/L BUN 22 (8-23) mg/dL Creatinine 1.87 H (0.70-1.30) mg/dL Glucose 222 H (70-105) mg/dL Calcium 8.5 L (8.6-10.3) mg/dL Consult Discharge Plan - Plan Referrals: [facility] [Primary Care Provider] - <Agus Rodriguez F - Last Filed: 12/21/18 09:02> Date of Encounter: 12/21/18 Objective Vital Signs - Last 8 Hours Temp Pulse Resp BP Pulse Ox 12/21/18 07:54 20 99 12/21/18 07:01 87 18 150/80 97 12/21/18 06:00 99.1 F 82 12 144/80 97 12/21/18 05:03 98.5 F 97 14 158/98 97 12/21/18 04:00 98.9 F 97 12 147/94 97 12/21/18 03:00 132/84 12/21/18 02:27 99.6 F 93 12 153/90 100 Intake and Output 12/20/18 12/21/18 12/21/18 23:59 07:59 15:59 Intake Total 1185.3 / 2695.3 149.0 / 224.7 75.7 / 224.7 Output Total 700 / 1925 725 / 725 Balance 485.3 / 770.3 -576.0 / -500.3 75.7 / -500.3 Intake: IV Fluids 1185.3 / 2695.3 149.0 / 224.7 75.7 / 224.7 KCl 20mEq IN D5%-0.45 NACL 20 1000 / 2000 meq In 1,000 ml @ 60 mls/hr IVC .[id number] [facility] Rx#:[id number] PRECEDEX Premix 400 mcg In 100 80.3 / 280.3 44.0 / 119.7 75.7 / 119.7 ml @ 0.2 MCG/KG/HR 3.65 mls/hr IVC .Q24H [facility] Rx#:[id number] Depacon 500 MG In 0.9 % Sodium 105 / 315 105 / 105 Chloride 100 ML @ 100 mls/hr IVPB Q8H [facility] Rx#:[id number] Oral 0 / 0 0 / 0 Output: Gastric Tube Lavage Amount 0 / 0 Mid Upper Abdomen 0 / 0 Catheter 700 / 1925 725 / 725 Other: Meal NPO Percent of Meal Consumed 0% Weight 58.3 kg Blood Glucose* 153 186 Patient Weight 12/21/18 23:59 Weight 58.3 kg - Labs 12/21/18 05:30 12/21/18 05:30 Diabetes panel 12/21/18 Range/Units 05:30 Sodium 145 (136-145) mEq/L Potassium 3.7 (3.5-5.1) mEq/L Chloride 110 H (98-107) mEq/L Carbon Dioxide 24 (23-29) mEq/L BUN 22 (8-23) mg/dL Creatinine 1.87 H (0.70-1.30) mg/dL Glucose 222 H (70-105) mg/dL Calcium 8.5 L (8.6-10.3) mg/dL Calcium panel 12/21/18 Range/Units 05:30 Calcium 8.5 L (8.6-10.3) mg/dL Pituitary panel 12/21/18 Range/Units 05:30 Sodium 145 (136-145) mEq/L Potassium 3.7 (3.5-5.1) mEq/L Chloride 110 H (98-107) mEq/L Carbon Dioxide 24 (23-29) mEq/L BUN 22 (8-23) mg/dL Creatinine 1.87 H (0.70-1.30) mg/dL Glucose 222 H (70-105) mg/dL Calcium 8.5 L (8.6-10.3) mg/dL Adrenal panel 12/21/18 Range/Units 05:30 Sodium 145 (136-145) mEq/L Potassium 3.7 (3.5-5.1) mEq/L Chloride 110 H (98-107) mEq/L Carbon Dioxide 24 (23-29) mEq/L BUN 22 (8-23) mg/dL Creatinine 1.87 H (0.70-1.30) mg/dL Glucose 222 H (70-105) mg/dL Calcium 8.5 L (8.6-10.3) mg/dL - Attending Attestation I examined this patient and my medical decision-making was reviewed with the Resident Physician. I agree with the documented findings, disposition and treatment plan as described except to the extent set forth below.
[2018-12-21] MEDS: Famotidine 20 MG/2 ML VIAL IVP SCH (09:02)
[2018-12-21] MEDS: D5% in 0.45% NACL w KCl 20 MEQ/1,000 ML MLS IVC SCH (10:29)
--- NOTE | 2018-12-21 11:09 | Internal Med Progress Note ---
Hospitalist Progress Note - Encounter Date of Encounter: 12/21/18 Time of Encounter: 08:45 - Subjective Interval History: Had PEG tube inserted yesterday by general surgery uneventfully. OTherwise, no significant change in his clinical course. He is more awake but continues to be agitated at times and not able to give any meaningful history - Exam Vitals: Temp Pulse Resp BP Pulse Ox 99.1 F 87 20 150/80 99 12/21/18 06:00 12/21/18 07:01 12/21/18 07:54 12/21/18 07:01 12/21/18 07:54 Exam: General: Alert but not oriented, agitated Cardiovascular:Normal S1 & S2, No JVD. Pulse irregular. Lungs: Diminished overall but clear to auscultation, no wheezes/rales Abdomen:Soft, non-tender, no rigidity. Extremities:No deformity or swelling Neurological: Moving all 4 limbs spontaneously - Assessment and Plan (1) Acute encephalopathy Current Visit: Yes Status: Acute Assessment and Plan: Likely a combination of ?seizure, BZD + pregabalin, and mild hypernatremia. Recently diagnosed with anoxic brain injury earlier this month with some degree of improvement was intubated initially due to airway protection and hypoxia, successfully extubated on 12/15 initially thought to have subtle infarct on CT but MRI did not show any evidence of it EEG showed bilateral PLEDs which could be related to underlying seizure activity hypernatremia corrected on D5W PEG tube inserted yesterday, will switch valproic acid to depakote 500mg BID per Neuro recommendation he is alert but continues to remain disoriented. Anticipate prolonged recovery course (if at all possible) continue to work with speech therapy for the initiation of PO Diet. PEG tube feeding started today wean precedex if able to would monitor his course over the weekend; if there is no significant impr ovement by Saturday, would ask for neurology input and consider palliative care consultation. Will also initiate LTAC referral if possible (2) Acute respiratory failure with hypoxia Current Visit: Yes Status: Resolved Assessment and Plan: Likely due to encephalopathy as above Extubated on 12/15, maintaining saturation well on room air Continue Pulmicort nebulizer (3) Acute on chronic renal failure Current Visit: Yes Status: Resolved Assessment and Plan: BUN/Cr improving with good UOP, continue to monitor avoid nephrotoxins (4) Supratherapeutic INR Current Visit: Yes Status: Acute Assessment and Plan: Patient has been off Coumadin since presentation INR was as high as 6.4 but was reversed due to PEG tube insertion 12/20 d/w surgery today, will resume Coumadin, no bridging with hep daily INR (5) Hypernatremia Current Visit: Yes Status: Resolved Assessment and Plan: Resolved with D5 water (6) C. difficile colitis Current Visit: Yes Status: Acute Assessment and Plan: Was discharged on a course of oral vancomycin on 12/12 PEG tube inserted yesterday, resume PO Vancomycin to finish the original course prescribed at the time of last discharge (7) CAD (coronary artery disease) Current Visit: Yes Status: Chronic Assessment and Plan: resume plavix and statin through PEG tube resume bb as well (8) DVT prophylaxis Current Visit: No Status: Acute Assessment and Plan: Coumadin resumed - Time Spent with Patient Total time spent is greater than 50% in coordination of care (as documented) at patient's floor/unit and/or counseling patient: 25 - 35 minutes Plan of Care Discussed with: nurse Internal Medicine: Result - Labs CBC & Chem 7: 12/21/18 05:30 12/21/18 05:30 Labs: Short CBC 12/21/18 Range/Units 05:30 WBC 11.4 H (4.3-11.1) K/mcL Hgb 12.5 L (12.9-16.9) g/dL Hct 38.3 (37.5-50.1) % Plt Count 148 (140-400) K/mcL Neutrophils # 9.9 H (1.6-8.9) K/mcL BMP 12/21/18 05:30 Sodium 145 Potassium 3.7 Chloride 110 H Carbon Dioxide 24 BUN 22 Creatinine 1.87 H Glucose 222 H Calcium 8.5 L - ABG Interpretation ABG results: ABG ABG pH 7.37 pH Units (7.32-7.45) 12/15/18 05:11 ABG pCO2 36 mmHg (35-45) 12/15/18 05:11 ABG pO2 113 mmHg (85-104) H 12/15/18 05:11 ABG O2 Saturation 98 % (95-98) 12/15/18 05:11 PT/INR, D-dimer PT 13.8 Seconds (9.4-12.1) H 12/21/18 05:30 Consult Discharge Plan - Plan [facility]errals: [facility] [Primary Care Provider] - (3) Acute on chronic renal failure Qualifiers: Acute renal failure type: unspecified Chronic kidney disease stage: stage 4 (severe) Qualified Code(s): N17.9 - Acute kidney failure, unspecified; N18.4 - Chronic kidney disease, stage 4 (severe) (7) CAD (coronary artery disease) Qualifiers: Coronary Disease-Associated Artery/Lesion type: unspecified vessel or lesion type [place] vs. transplanted heart: unspecified whether [place] or transplanted heart Associated angina: angina presence unspecified Qualified Code(s): I25.10 - Atherosclerotic heart disease of [place] coronary artery without angina pectoris
[2018-12-21] MEDS ORDERED: *HR* Warfarin 5 MG TABLET PO ONE (18:00)
[2018-12-21] MEDS ORDERED: Warfarin perPT PO PRN (18:00)
[2018-12-21] MEDS: Valproic Acid Oral Soln 250 MG/5 ML UDC GTUBE SCH (20:19)
[2018-12-22] MEDS: Dexmedetomidine HCl 400 MCG/100 ML MLS IVC SCH ×4 (00:02→23:57)
[2018-12-22] MEDS: Ipratropium/Albuterol Neb 3 ML IH SCH ×7 (00:05→23:20)
[2018-12-22] MEDS: Insulin LISPRO 300 UNITS/3 ML VIAL SQ SCH ×4 (00:38→18:28)
[2018-12-22] MEDS: Budesonide Neb 0.5 MG/2 ML IH SCH ×2 (07:16→19:40)
[2018-12-22] MEDS: Valproic Acid Oral Soln 250 MG/5 ML UDC GTUBE SCH ×2 (08:01→20:17)
[2018-12-22 08:17] LABS: Basophils % 0.2 %; Eosinophils # 0.1 K/mcL (0.0-0.6); Eosinophils % 0.5 %; Hemoglobin 12.7 g/dL (12.9-16.9); Immature Granulocytes % 0.6 % (0-4); Lymphocytes # 0.5 K/mcL (0.6-4.6); Lymphocytes % 4.1 %; Mean Corpuscular HGB Conc 31.8 g/dL (31.6-35.5); Mean Corpuscular Hemoglobin 29.9 pg (28.0-33.3); Mean Corpuscular Volume 94.1 fL (83.0-100.0); Mean Platelet Volume 12.8 fL (9.4-12.4); Monocytes # 0.8 K/mcL (0.0-1.3); Monocytes % 5.7 %; Neutrophils # 11.7 K/mcL (1.6-8.9); Platelet Count 153 K/mcL (140-400); Red Blood Count 4.25 M/mcL (4.19-5.50); Red Cell Distribution Width 14.1 % (11.5-14.5); Segmented Neutrophils % 88.9 %
[2018-12-22 08:23] LABS: INR 1.4; Prothrombin Time 15.6 Seconds (9.4-12.1)
[2018-12-22 08:43] LABS: Calcium 8.8 mg/dL (8.6-10.3); Magnesium 1.7 mg/dL (1.6-2.6); Potassium 3.7 mEq/L (3.5-5.1)
[2018-12-22] MEDS ORDERED: Metoprolol XL (24 HR) Succ 25 MG TAB.ER.24H PO SCH (09:00)
[2018-12-22 09:12] LABS: Platelet Estimate Normal (Normal)
[2018-12-22] MEDS ORDERED: Warfarin perPT GTUBE PRN (09:28)
[2018-12-22] MEDS: Vancomycin Oral Soln 125 MG/2.5 ML UDC PO SCH (10:12)
--- NOTE | 2018-12-22 10:20 | Internal Med Progress Note ---
Hospitalist Progress Note - Encounter Date of Encounter: 12/22/18 Time of Encounter: 08:45 - Subjective Interval History: No notable changes in his mental status noted. He continues to remain alert but agitated at times. Not able to give any meaningful history when asked about specific complaints but more interactive with directions when asked. - Exam Vitals: Temp Pulse Resp BP Pulse Ox 98.8 F 82 18 145/87 93 12/22/18 06:30 12/22/18 06:30 12/22/18 07:16 12/22/18 08:00 12/22/18 07:16 Exam: General: Alert but not oriented, more interactive today Cardiovascular:Normal S1 & S2, No JVD. Pulse irregular. Lungs: Diminished overall but clear to auscultation, no wheezes/rales Abdomen:Soft, non-tender, no rigidity. Extremities:No deformity or swelling Neurological: Moving all 4 limbs spontaneously - Assessment and Plan (1) Acute encephalopathy Current Visit: Yes Status: Acute Assessment and Plan: Likely a combination of ?seizure, BZD + pregabalin, and mild hypernatremia. Recently diagnosed with anoxic brain injury earlier this month with some degree of improvement was intubated initially due to airway protection and hypoxia, successfully extub ated on 12/15 initially thought to have subtle infarct on CT but MRI did not show any evidence of it EEG showed bilateral PLEDs which could be related to underlying seizure activity hypernatremia corrected on D5W PEG tube inserted 12/20, now on PO depakote 500mg BID per Neuro recommendation he is alert but continues to remain disoriented. Anticipate prolonged recovery course (if at all possible) continue to work with speech therapy for the initiation of PO Diet. PEG tube feeding started 12/21 wean precedex if able to would monitor his course over the weekend; if there is no significant improvemen t by Saturday, would ask for neurology input and consider palliative care consultation. Will also initiate LTAC referral if possible (2) Acute respiratory failure with hypoxia Current Visit: Yes Status: Resolved Assessment and Plan: Likely due to encephalopathy as above Extubated on 12/15, maintaining saturation well on room air Continue Pulmicort nebulizer (3) Acute on chronic renal failure Current Visit: Yes Status: Resolved Assessment and Plan: BUN/Cr improving with good UOP, continue to monitor avoid nephrotoxins (4) Supratherapeutic INR Current Visit: Yes Status: Acute Assessment and Plan: Patient has been off Coumadin since presentation INR was as high as 6.4 but was reversed due to PEG tube insertion 12/20 Coumadin resumed yesterday after discussing with surgery daily INR (5) Hypernatremia Current Visit: Yes Status: Resolved Assessment and Plan: Resolved with D5 water (6) C. difficile colitis Current Visit: Yes Status: Acute Assessment and Plan: Was discharged on a course of oral vancomycin on 12/12 PEG tube inserted 12/20, PO Vancomycin resumed to finish the original course prescribed at the time of last discharge. Discussed with pharmacy (7) CAD (coronary artery disease) Current Visit: Yes Status: Chronic Assessment and Plan: resume plavix and statin through PEG tube resume bb as well (8) DVT prophylaxis Current Visit: No Status: Acute Assessment and Plan: Coumadin resumed - Time Spent with Patient Total time spent is greater than 50% in coordination of care (as documented) at patient's floor/unit and/or counseling patient: 25 - 35 minutes Plan of Care Discussed with: nurse Internal Medicine: Result - Labs CBC & Chem 7: 12/22/18 06:41 12/22/18 06:41 Labs: Short CBC 12/22/18 Range/Units 06:41 WBC 13.2 H (4.3-11.1) K/mcL Hgb 12.7 L (12.9-16.9) g/dL Hct 40.0 (37.5-50.1) % Plt Count 153 (140-400) K/mcL Neutrophils # 11.7 H (1.6-8.9) K/mcL BMP 12/22/18 06:41 Sodium 144 Potassium 3.7 Chloride 106 Carbon Dioxide 24 BUN 28 H Creatinine 1.71 H Glucose 216 H Calcium 8.8 - ABG Interpretation ABG results: ABG ABG pH 7.37 pH Units (7.32-7.45) 12/15/18 05:11 ABG pCO2 36 mmHg (35-45) 12/15/18 05:11 ABG pO2 113 mmHg (85-104) H 12/15/18 05:11 ABG O2 Saturation 98 % (95-98) 12/15/18 05:11 PT/INR, D-dimer PT 15.6 Seconds (9.4-12.1) H 12/22/18 06:41 Consult Discharge Plan - Plan Referrals: [facility] [Primary Care Provider] - (3) Acute on chronic renal failure Qualifiers: Acute renal failure type: unspecified Chronic kidney disease stage: stage 3 (moderate) Qualified Code(s): N17.9 - Acute kidney failure, unspecified; N18.3 - Chronic kidney disease, stage 3 (moderate) (7) CAD (coronary artery disease) Qualifiers: Coronary Disease-Associated Artery/Lesion type: unspecified vessel or lesion type [place] vs. transplanted heart: unspecified whether [place] or transplanted heart Associated angina: angina presence unspecified Qualified Code(s): I25.10 - Atherosclerotic heart disease of [place] coronary artery without angina pectoris
[2018-12-22] MEDS: Famotidine 20 MG/2 ML VIAL IVP SCH (10:32)
[2018-12-22] MEDS: Vancomycin Oral Soln 125 MG/2.5 ML UDC GTUBE SCH ×4 (10:39→20:18)
[2018-12-22] MEDS ORDERED: *HR* Warfarin 5 MG TABLET GTUBE ONE (18:00)
[2018-12-23] MEDS: Insulin LISPRO 300 UNITS/3 ML VIAL SQ SCH ×4 (00:01→18:57)
[2018-12-23] MEDS: Ipratropium/Albuterol Neb 3 ML IH SCH ×5 (04:05→20:23)
[2018-12-23] MEDS: Budesonide Neb 0.5 MG/2 ML IH SCH ×2 (07:22→20:23)
[2018-12-23 08:32] LABS: Basophils % 0.2 %; Eosinophils # 0.1 K/mcL (0.0-0.6); Eosinophils % 1.2 %; Hematocrit 37.9 % (37.5-50.1); Hemoglobin 12.4 g/dL (12.9-16.9); Immature Granulocytes % 0.7 % (0-4); Lymphocytes # 0.8 K/mcL (0.6-4.6); Lymphocytes % 8.9 %; Mean Corpuscular HGB Conc 32.7 g/dL (31.6-35.5); Mean Corpuscular Hemoglobin 30.2 pg (28.0-33.3); Mean Corpuscular Volume 92.4 fL (83.0-100.0); Mean Platelet Volume 12.1 fL (9.4-12.4); Monocytes # 0.7 K/mcL (0.0-1.3); Monocytes % 7.6 %; Neutrophils # 7.1 K/mcL (1.6-8.9); Platelet Count 132 K/mcL (140-400); Segmented Neutrophils % 81.4 %
[2018-12-23 08:40] LABS: INR 1.5; Prothrombin Time 16.7 Seconds (9.4-12.1)
[2018-12-23 08:50] LABS: Calcium 8.6 mg/dL (8.6-10.3); Potassium 3.5 mEq/L (3.5-5.1)
[2018-12-23] MEDS: Vancomycin Oral Soln 125 MG/2.5 ML UDC GTUBE SCH ×4 (08:55→20:22)
[2018-12-23] MEDS: Valproic Acid Oral Soln 250 MG/5 ML UDC GTUBE SCH ×2 (08:55→20:21)
[2018-12-23] MEDS: Famotidine 20 MG/2 ML VIAL IVP SCH (08:58)
--- NOTE | 2018-12-23 11:56 | Internal Med Progress Note ---
Hospitalist Progress Note - Encounter Date of Encounter: 12/23/18 Time of Encounter: 10:00 - Subjective Interval History: Pt is much more alert and responsive today. Able to answer by yes or no to questions.He was also noted to be very cooperative with speech evaluation and was successfully restarted on pureed diet. No fever overnight, WBC downtrending - Exam Vitals: Temp Pulse Resp BP Pulse Ox 97.7 F 78 16 136/97 100 12/23/18 11:06 12/23/18 11:06 12/23/18 11:06 12/23/18 11:06 12/23/18 11:06 Exam: General: Alert, oriented to self, more interactive today and answers simple questions appropriately Cardiovascular:Normal S1 & S2, No JVD. Pulse irregular. Lungs: Diminished overall but clear to auscultation, no wheezes/rales Abdomen:Soft, non-tender, no rigidity. Extremities:No deformity or swelling Neurological: Moving all 4 limbs spontaneously - Assessment and Plan (1) Acute encephalopathy Current Visit: Yes Status: Acute Assessment and Plan: Likely a combination of ?seizure, BZD + pregabalin, and mild hypernatremia. Recently diagnosed with anoxic brain injury earlier this month with some degree of improvement was intubated initially due to airway protection and hypoxia, successfully extubated on 12/15 initially thought to have subtle infarct on CT but MRI did not show any evidence of it EEG showed bilateral PLEDs which could be related to underlying seizure activity hypernatremia corrected on D5W PEG tube inserted 12/20, now on PO depakote 500mg BID per Neuro recommendation. PEG tube feeding started 12/21 slowly improving, was able to engage in speech evaluation today and was successfully restarted on pureed diet will start PT/OT as well precedex being weaned off, continue would hold off on Neurology/palliative consult for now given his improvement, may be able to discharge to [facility] once PT/OT evaluation is in. (2) Acute respiratory failure with hypoxia Current Visit: Yes Status: Resolved Assessment and Plan: Likely due to encephalopathy as above Extubated on 12/15, maintaining saturation well on room air Continue Pulmicort nebulizer (3) Acute on chronic renal failure Current Visit: Yes Status: Resolved Assessment and Plan: BUN/Cr improving with good UOP, continue to monitor avoid nephrotoxins (4) Supratherapeutic INR Current Visit: Yes Status: Acute Assessment and Plan: Patient has been off Coumadin since presentation INR was as high as 6.4 but was reversed due to PEG tube insertion 12/20 Coumadin resumed post-operatively, INR 1.5 today daily INR (5) Hypernatremia Current Visit: Yes Status: Resolved Assessment and Plan: Resolved with D5 water (6) C. difficile colitis Current Visit: Yes Status: Acute Assessment and Plan: Was discharged on a course of oral vancomycin on 12/12 PEG tube inserted 12/20, PO Vancomycin resumed to finish the original course prescribed at the time of last discharge. Discussed with pharmacy (7) CAD (coronary artery disease) Current Visit: Yes Status: Chronic Assessment and Plan: resume plavix and statin through PEG tube resume bb as well (8) DVT prophylaxis Current Visit: No Status: Acute Assessment and Plan: Coumadin resumed - Time Spent with Patient Total time spent is greater than 50% in coordination of care (as documented) at patient's floor/unit and/or counseling patient: 25 - 35 minutes Plan of Care Discussed with: nurse (discussed with speech therapy as well) Internal Medicine: Result - Labs CBC & Chem 7: 12/23/18 08:16 12/23/18 08:16 Labs: Short CBC 12/23/18 Range/Units 08:16 WBC 8.7 (4.3-11.1) K/mcL Hgb 12.4 L (12.9-16.9) g/dL Hct 37.9 (37.5-50.1) % Plt Count 132 L (140-400) K/mcL Neutrophils # 7.1 (1.6-8.9) K/mcL BMP 12/23/18 08:16 Sodium 142 Potassium 3.5 Chloride 104 Carbon Dioxide 29 BUN 27 H Creatinine 1.46 H Glucose 312 H Calcium 8.6 - ABG Interpretation ABG results: ABG ABG pH 7.37 pH Units (7.32-7.45) 12/15/18 05:11 ABG pCO2 36 mmHg (35-45) 12/15/18 05:11 ABG pO2 113 mmHg (85-104) H 12/15/18 05:11 ABG O2 Saturation 98 % (95-98) 12/15/18 05:11 PT/INR, D-dimer PT 16.7 Seconds (9.4-12.1) H 12/23/18 08:16 Consult Discharge Plan - Plan Referrals: [facility] [Primary Care Provider] - (3) Acute on chronic renal failure Qualifiers: Acute renal failure type: unspecified Chronic kidney disease stage: stage 3 (moderate) Qualified Code(s): N17.9 - Acute kidney failure, unspecified; N18.3 - Chronic kidney disease, stage 3 (moderate) (7) CAD (coronary artery disease) Qualifiers: Coronary Disease-Associated Artery/Lesion type: unspecified vessel or lesion type [place] vs. transplanted heart: unspecified whether [place] or transplanted heart Associated angina: angina presence unspecified Qualified Code(s): I25.10 - Atherosclerotic heart disease of [place] coronary artery without angina pectoris
[2018-12-23] MEDS: Dexmedetomidine HCl 400 MCG/100 ML MLS IVC SCH ×2 (16:40→21:19)
[2018-12-23] MEDS ORDERED: *HR* Warfarin 5 MG TABLET GTUBE ONE (18:00)
[2018-12-24] MEDS: Insulin LISPRO 300 UNITS/3 ML VIAL SQ SCH ×4 (00:20→18:12)
[2018-12-24] MEDS: Ipratropium/Albuterol Neb 3 ML IH SCH ×7 (00:24→23:54)
[2018-12-24] MEDS: Budesonide Neb 0.5 MG/2 ML IH SCH ×2 (07:29→20:17)
[2018-12-24] MEDS: Valproic Acid Oral Soln 250 MG/5 ML UDC GTUBE SCH ×2 (08:09→20:27)
[2018-12-24] MEDS: Famotidine 20 MG/2 ML VIAL IVP SCH (08:09)
[2018-12-24] MEDS: Vancomycin Oral Soln 125 MG/2.5 ML UDC GTUBE SCH ×4 (08:10→20:27)
[2018-12-24 08:56] LABS: Prothrombin Time 22.8 Seconds (9.4-12.1)
[2018-12-24 09:04] LABS: Potassium 3.6 mEq/L (3.5-5.1)
[2018-12-24] MEDS: Dexmedetomidine HCl 400 MCG/100 ML MLS IVC SCH (09:24)
[2018-12-24] MEDS ORDERED: Ondansetron 4 MG/2 ML VIAL IVP PRN (10:36)
--- NOTE | 2018-12-24 15:46 | Internal Med Progress Note ---
Hospitalist Progress Note - Encounter Date of Encounter: 12/24/18 Time of Encounter: 15:44 - Subjective Interval History: Patient seen and examined at bedside. Patient states that he feels "sick." He has difficulty localizing any complaints. He does report nausea. Denies diarrhea. - Exam Vitals: Temp Pulse Resp BP Pulse Ox 98.5 F 98 17 124/73 93 12/24/18 11:22 12/24/18 14:00 12/24/18 14:00 12/24/18 14:00 12/24/18 14:00 Exam: Gen.: Mild distress Heart: Regular rate and rhythm, no murmurs, rubs, gallops Lungs: Clear to auscultation bilaterally, no murmurs, wheezes Abdomen: Normoactive bowel sounds, mildly diffusely tender, no rigidity, rebound, guarding. - Assessment and Plan (1) Acute encephalopathy Current Visit: Yes Status: Acute Assessment and Plan: Overall patient appears to be improving. Still mildly encephalopathic but is alert and able to answer some questions appropriately. I feel it Precedex may be worsening his symptoms so I will wean this off and reassess. (2) Hypernatremia Current Visit: Yes Status: Resolved Assessment and Plan: Resolved at this time. (3) Acute on chronic renal failure Current Visit: Yes Status: Resolved Assessment and Plan: Renal function has stabilized. Baseline creatinine appears to be around 1.6. (4) Acute respiratory failure with hypoxia Current Visit: Yes Status: Resolved Assessment and Plan: Resolved at this time. Maintaining oxygen saturation on room air. (5) C. difficile colitis Current Visit: Yes Status: Acute Assessment and Plan: Present upon admission, complete previously prescribed course. (6) CAD (coronary artery disease) Current Visit: Yes Status: Chronic (7) Supratherapeutic INR Current Visit: Yes Status: Resolved Assessment and Plan: Resolved. INR in therapeutic range. (8) DVT prophylaxis Current Visit: No Status: Acute Assessment and Plan: INR therapeutic at this time. - Time Spent with Patient Total time spent is greater than 50% in coordination of care (as documented) at patient's floor/unit and/or counseling patient: Internal Medicine: Result - Labs CBC & Chem 7: 12/23/18 08:16 12/24/18 08:00 Labs: BMP 12/24/18 08:00 Sodium 140 Potassium 3.6 Chloride 101 Carbon Dioxide 31 H BUN 28 H Creatinine 1.65 H Glucose 191 H Calcium 9.0 - ABG Interpretation ABG results: ABG ABG pH 7.37 pH Units (7.32-7.45) 12/15/18 05:11 ABG pCO2 36 mmHg (35-45) 12/15/18 05:11 ABG pO2 113 mmHg (85-104) H 12/15/18 05:11 ABG O2 Saturation 98 % (95-98) 12/15/18 05:11 PT/INR, D-dimer PT 22.8 Seconds (9.4-12.1) H 12/24/18 08:00 Consult Discharge Plan - Plan Referrals: [facility] [Primary Care Provider] - (3) Acute on chronic renal failure Qualifiers: Acute renal failure type: unspecified Chronic kidney disease stage: stage 3 (moderate) Qualified Code(s): N17.9 - Acute kidney failure, unspecified; N18.3 - Chronic kidney disease, stage 3 (moderate) (6) CAD (coronary artery disease) Qualifiers: Coronary Disease-Associated Artery/Lesion type: unspecified vessel or lesion type [place] vs. transplanted heart: unspecified whether [place] or transplanted heart Associated angina: angina presence unspecified Qualified Code(s): I25.10 - Atherosclerotic heart disease of [place] coronary artery without angina pectoris
[2018-12-24 16:24] VITALS: BP 92/53
[2018-12-24] MEDS ORDERED: *HR* Warfarin 2.5 MG TABLET GTUBE ONE (18:00)
[2018-12-24] MEDS ORDERED: *HR* Metoprolol 5 MG/5 ML VIAL IVP ONE (19:01)
[2018-12-24 20:34] LABS: Magnesium 1.4 mg/dL (1.6-2.6); Potassium 4.3 mEq/L (3.5-5.1)
--- NOTE | 2018-12-25 00:53 | Event Note ---
Date of Encounter: 12/25/18 Time of Encounter: 00:12 I responded to LEXIS PHILLIPS call on this patient and arrived to the bedside noting that he was undergoing chest compressions and bag mask ventilation per ACLS protocol. He was pulseless and apneic upon my arrival. During his resuscitative efforts, I spoke briefly with his primary nurse who noted that he was minimally responsive upon her assessment of the patient and noted that he had tube feeds coming from his nose and mouth. Shortly thereafter, he became apneic and pulseless. Subsequently, LEXIS PHILLIPS was called. Patient received chest compressions, bag mask ventilation, endotracheal intubation per respiratory therapy, and ongoing frequent reassessments per ACLS protocol. He received several rounds of epinephrine, a dose of sodium bicarbonate, and an extra dose of magnesium sulfate for an earlier lab confirmation of hypomagnesemia. 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 After a prolonged and aggressive resuscitative effort per ACLS protocol, patient showed no sign or return of spontaneous circulation despite the aggressive measures detailed above. Time of was noted at 12:32 AM on 12/25/2018. Attempts are currently being made to contact family members.
--- NOTE | 2018-12-25 09:22 | Electrocardiograph Report ---
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
== END 2018-12-25 00:32 | disposition expired | DRG 208 ==
LOC: SUATTDRO 16:00 → ICNU 16:00 → 2NNU 12-20 17:29
PROVIDERS: ADMIT Internal Medicine Nephrology; ATTEND Internal Medicine